=== PATIENT | male | born 1965 | race Caucasian/White ===

== ENCOUNTER 2017-04-01 08:10 | Inpatient (IN) | payer OTHER ==
[~2017-04-01] VITALS: Ht 190.5 cm; Wt 178.8 kg
[~2017-04-01 08:10] MED LIST: PRED20TA PO
[2017-04-01] MEDS ORDERED: [UNRECOGNIZED DRUG - OTHER] PO (08:43)
[2017-04-01 08:45] LABS: BASO % 0.4 %; BASO ABS # 0.04 K/uL (0-0.2); COMPLETE YES; EOS % 1.7 %; HEMATOCRIT 47.9 % (42-52); IG% 0.2 %; LYMPH % 31.7 %; MEAN CELL VOLUME 91.4 fL (80-100); MEAN CORPUSCULAR HEMOGLOBIN 31.7 pg (25-34); MEAN CORPUSCULAR HGB CONC 34.7 g/dl (32-36); MEAN PLATELET VOLUME 10.5 fL (7.4-10.4); MONO % 6.8 %; NEUT % 59.2 %; PLATELET COUNT 184 K/uL (130-400); RED BLOOD COUNT 5.24 M/uL (4.7-6.1); WHITE BLOOD COUNT 9.15 K/uL (4.8-10.8)
[2017-04-01] MEDS ORDERED: ATOR80TA PO (08:45)
--- NOTE | 2017-04-01 08:58 | DIAGNOSTIC IMAGING REPORT ---
CHEST ONE VIEW PORTABLE CLINICAL HISTORY: 52 years-old Male presenting with EVALUATE RESPIRATORY DISTRESS. DYSPNEA. TECHNIQUE: Portable upright AP view of the chest was obtained. COMPARISON: None. FINDINGS: Cardiac silhouette is enlarged. Mildly prominent pulmonary vasculature. Lungs clear. No large effusion or pneumothorax. Osseous structures normal. Upper abdomen normal. IMPRESSION: 1. Cardiomegaly. Pulmonary vascular prominence could suggest volume overload. No madelyn pulmonary edema. Electronically signed by: Kaveh Greco M.D. 04/01/2017 8:57 AM Dictated Date/Time: 04/01/2017 8:56 AM
[2017-04-01 09:02] LABS: CALCIUM 9.2 mg/dl (8.5-10.1); CREATININE 1.3 mg/dl (0.60-1.40); POTASSIUM 3.9 mmol/L (3.5-5.1)
[2017-04-01 09:12] LABS: ALB/GLOB RATIO 1.2 (0.9-2); CKMB/CK RATIO 3.8 (0-3.0); INR 1.1 (0.9-1.1); PROTHROMBIN TIME (PATIENT) 11.4 SECONDS (9.0-12.0); THYROID STIMULATING HORMONE 1.47 uIu/ml (0.300-4.500)
[2017-04-01] MEDS ORDERED: FUROSEMIDE 40 MG/4 ML VIAL IV STA (09:30)
[2017-04-01] MEDS ORDERED: OPTIRAY 320 IV PRN (09:45)
--- NOTE | 2017-04-01 10:12 | DIAGNOSTIC IMAGING REPORT ---
CT ANGIOGRAM OF THE CHEST CLINICAL HISTORY: Shortness of breath. Elevated d-dimer. COMPARISON STUDY: Chest x-ray dated 04/01/2017 TECHNIQUE: Following the IV administration of 108 mL of Optiray-320, CT angiogram of the thorax was performed from the thoracic inlet to the lung bases utilizing the pulmonary embolus protocol. Images are reviewed in the axial, sagittal, and coronal planes. IV contrast was administered without complication. MIP imaging was performed. A dose lowering technique was utilized adhering to the principles of ALARA. CT DOSE: 671.95 mGy.cm FINDINGS: There is a 1 cm lymph node in the region of the azygos esophageal recess. This is at the upper limits of normal in size. There is no pathologic hilar adenopathy. There is a trace pericardial effusion. There was no evidence of thoracic aortic dilatation. There is some optimal lower lobe pulmonary arterial opacification. No pulmonary emboli are visualized. No pleural effusions are visualized. There is no evidence of focal pulmonary consolidation. There is a 2 mm solid right upper lobe pulmonary nodule as visualized in image #[id number]. No further follow-up is indicated unless this patient is at high risk. IMPRESSION: 1. Slightly limited study from a technical standpoint with suboptimal lower lobe pulmonary opacification. No pulmonary emboli identified. 2. No evidence of focal pulmonary consolidation 3. 2 mm right upper lobe pulmonary nodule Electronically signed by: Joe Quiroz M.D. 04/01/2017 10:11 AM Dictated Date/Time: 04/01/2017 10:05 AM
[2017-04-01 10:35] LABS: URINE APPEARANCE CLEAR (CLEAR); URINE BILIRUBIN NEG (NEG); URINE COLOR YELLOW; URINE NITRITE NEG (NEG); URINE SPECIFIC GRAVITY 1.014 (1.000-1.030); UROBILINOGEN NEG (NEG)
[2017-04-01 10:37] LABS: MANUAL MICROSCOPIC REQUIRED? NO; REVIEW REQ? NO
[2017-04-01 11:00] VITALS: O2SAT 94; Ht 190.5 cm; Wt 178.8 kg
[2017-04-01] MEDS ORDERED: ATOR-22 PO (11:06)
[2017-04-01] MEDS ORDERED: ALBUTEROL HFA 8 GM INHALER INH PRN (11:15)
[2017-04-01] MEDS ORDERED: LEVALBUTEROL 1.25MG/0.5ML NEB INH PRN (11:15)
[2017-04-01] MEDS ORDERED: ONDANSETRON INJ 2 MG/ML 2 ML VIAL IV PRN (11:15)
[2017-04-01] MEDS ORDERED: ACETAMINOPHEN 325 MG TAB PO PRN (11:15)
[2017-04-01] MEDS ORDERED: ALUMINUM/MAGNESIUM/SIMETH (MAALOX MAX) 30 ML UDC PO PRN (11:15)
[2017-04-01] MEDS ORDERED: NITROGLYCERIN 0.4 MG SL PER TAB CHARGE SL PRN (11:15)
[2017-04-01] MEDS ORDERED: MAGNESIUM HYDROXIDE SUSP 30 ML UDC PO PRN (11:15)
--- NOTE | 2017-04-01 11:36 | HISTORY & PHYSICAL EXAMINATION ---
DATE OF ADMISSION: 04/01/2017 CHIEF COMPLAINT: Shortness of breath. HISTORY OF PRESENT ILLNESS: This is a 52-year-old male with past medical history significant for asthma, psoriasis, hyperlipidemia, hypertension and morbid obesity, presents with progressive shortness of breath. The patient says since last 4-5 months he is getting progressively short of breath which is getting worse. He lately is getting short of breath on walking 10 steps and that is why he came to the ER.Currently resting comfortably and hemodynamically stable. Denies any orthopnea and no chest pain, no cough, no fever, no chills, no headaches, no blurred vision, no dizziness, no sore throat. No nausea, no vomiting, no abdominal pain. Normal bowel and bladder movements. No blood in the stool, no blood in the urine. He has some skin rash from psoriasis but nothing unusual. Denies any swelling in the legs. Appetite is okay. ALLERGIES: No known drug allergies. PAST MEDICAL HISTORY: As mentioned above. PAST SURGICAL HISTORY: None. MEDICATIONS: The patient is on aspirin 81 mg p.o. daily, Lipitor 20 mg p.o. daily, lisinopril 20 mg p.o. daily, albuterol 2 puffs inhalation q. 4 hours p.r.n., Advair Diskus 500/50 one inhalation b.i.d. FAMILY HISTORY: Significant for mother has diabetes, retinopathy, and dementia. Father has lung cancer. Brother has lymphedema infectious complication. SOCIAL HISTORY: Single, has passive smoking exposure. No drug abuse. REVIEW OF SYMPTOMS: As per HPI. Rest of review of systems negative. PHYSICAL EXAMINATION: GENERAL: The patient is morbidly obese, not in distress. VITAL SIGNS: Temperature 36.8, pulse 103, respiratory rate 22, blood pressure 142/97, and oxygen 94% room air. HEENT: No pallor, no icterus. Pupils equal, round, and reactive to light. NECK: No JVD, no neck masses, no carotid bruits. CARDIOVASCULAR: S1, S2 heard, regular rate and rhythm, no murmur, no gallop. RESPIRATORY SYSTEM: No accessory muscle use. No wheezing. No crackles. Clear to auscultation bilaterally. ABDOMEN: Soft, bowel sounds present, nontender. No distention. Obese. CENTRAL NERVOUS SYSTEM: Cranial nerves II-XII grossly intact and nonfocal. EXTREMITIES: Chronic lower extremity edema present. SKIN: Psoriatic rash seen on the lower extremities. LABORATORY DATA: Urinalysis unremarkable. Sodium 140, potassium 3.9, chloride 107, bicarbonate 25, BUN 18, creatinine 1.3, serum glucose 101. Calcium 9.2, total bilirubin 1.3, AST 19, ALT 26, alkaline phosphatase 65, total creatine kinase 77, troponin I 0.018, BNP 1971. TSH 1.4. WBC 9.15. Hemoglobin 16.6, hematocrit 47.9, platelets 184. PT 11.4, INR 1.1. D-dimer 780. IMAGING DATA: Chest x-ray cardiomegaly, mild pulmonary vascular congestion, no madelyn pulmonary edema. CTA of the chest, no PE, trace pericardial effusion, 2 mm right upper lobe pulmonary nodule. EKG: Normal sinus rhythm with rate of 82, incomplete right bundle branch block, no acute ST changes seen. ASSESSMENT AND PLAN: This is a 52-year-old male who presents with progressive worsening shortness of breath. 1. Shortness of breath, progressively worsening, possible congestive heart failure diastolic. We will admit to tele floor, the patient got a dose of Lasix in the ER. We will also get an echocardiogram, serial cardiac enzymes and observe on tele floor. Patient may be having underlying obstructive sleep apnea we will get a nocturnal pulse ox study while in the hospital and also get an ABG. 2. History of hypertension. Continue his home medication of lisinopril. Monitor the blood pressure. 3. Trace pericardial effusion on the CAT scan. We will follow the echocardiogram. 4. Hyperlipidemia. We will continue statin, follow lipid profile, 5 asthma, moderate persistent but seems to be stable. Continue his home inhalers. 6. Deep venous thrombosis prophylaxis. Heparin subQ. DISPOSITION: 1. Admit to tele floor. 2. Expect to Discharge home and follow with his family doctor. Level 1 full code. MTDD
--- NOTE | 2017-04-01 13:59 | EMERGENCY ROOM VISIT NOTE ---
History First contact with patient: 08:16 Chief Complaint: RESPIRATORY PROBLEMS Stated Complaint: BREATHING DIFFICULTY Nursing Triage Summary: triage note; pt reports "for the past three or four months i can't walk more than ten steps without getting out of breath and it is gettinger worse, i do have a hx of asthma." History of Present Illness The patient is a 52 year old male who presents to the Emergency Room with complaints of increasing shortness of breath for the past 3-4 months. The patient reports that now he can only walk about 5 steps before getting shortness of breath. The patient denies any prior history of these symptoms. He does have a history of asthma, but reports that his shortness of breath feels different. He has not noticed any lower extremity edema. He has had no chest pain, pressure, nausea or diaphoresis. The patient has not seen his family doctor for the symptoms. Review of Systems HEENT: Denies dizziness, visual problems, hearing loss, tinnitus. Denies difficulty swallowing or oral lesions. PULMONARY: Denies cough, sputum production or hemoptysis. CARDIOVASCULAR: Denies chest pain, palpitations, orthopnea or peripheral edema. He does report dyspnea on exertion. GASTROINTESTINAL: Denies diarrhea, constipation, nausea, vomiting, or abdominal pain. GENITOURINARY: Denies dysuria, frequency, urgency or nocturia. NEUROLOGIC: Denies history of epilepsy, CVA, TIA or chronic headaches. MUSCULOSKELETAL: Denies history of joint tenderness/swelling. SKIN: Denies rashes or lesions. PSYCHIATRIC: Denies history of depression or mental illness. ENDOCRINE: Denies history of diabetes or thyroid disorders. Past Medical/Surgical History Medical Problems: (1) CHF (congestive heart failure) Family History FH: cancer FH: diabetes mellitus FH: hypertension FH: lung disease Social History Smoking Status: Never Smoker Alcohol Use: occasionally Marital Status: single Housing Status: lives with friends Occupation Status: employed Current/Historical Medications Scheduled Aspirin (Aspirin Ec), 81 MG PO QAM Atorvastatin (Lipitor), 20 MG PO DAILY Fluticasone Prop/Salmeterol (Advair Diskus 500-50 Mcg/Dose), 1 INHA INH BID Lisinopril (Prinivil), 20 MG PO QAM [Acetaminophen Cold], 4 TABS PO Q6H Scheduled PRN Albuterol Hfa (Ventolin Hfa), 1-2 PUFFS INH Q6H PRN for Shortness of Breath Physical Exam Vital Signs Date Time Temp Pulse Resp B/P (MAP) Pulse Ox O2 Delivery O2 Flow Rate FiO2 04/01/17 12:19 81 20 154/99 96 Room Air 04/01/17 11:27 77 04/01/17 11:17 75 20 134/86 97 Room Air 04/01/17 11:00 94 Room Air 04/01/17 09:30 103 22 142/97 94 Room Air 04/01/17 08:46 95 Room Air 04/01/17 08:32 78 04/01/17 08:13 36.8 84 20 143/99 94 Room Air 04/01/17 08:13 Room Air Physical Exam CONSTITUTIONAL: Morbidly obese male, alert and oriented X 3 with positive affect. Patient does not appear in any acute distress. HEENT: Normocephalic, atraumatic. Pupils equal, round and reactive. NECK: Full active range of motion without discomfort. No obvious JVD or carotid bruits. RESPIRATORY: Clear to auscultation bilaterally with no wheezing, crackles, rhonchi or stridor. CARDIOVASCULAR: Regular rate and rhythm with no murmurs, rubs or gallops. GASTROINTESTINAL: Bowel sounds present in all quadrants. Abdomen is protuberant but soft and nontender to palpation. Negative CVA tenderness. MUSCULOSKELETAL: Full range of motion of all joints without discomfort. No peripheral edema noted. INTEGUMENTARY: No rash or other significant dermatologic conditions noted. HEMATOLOGIC: No obvious ecchymosis or petechiae. NEUROLOGIC: No focal neurologic deficits noted. Medical Decision & Procedures ER Provider Diagnostic Interpretation: My interpretation of an ECG shows a normal sinus rhythm of 82 bpm with an incomplete right bundle branch block and left anterior fascicular block. No ST elevations noted. There are no prior ECGs for comparison. My interpretation of a portable chest x-ray shows cardiomegaly with prominent pulmonary vasculature, suggesting volume overload. Radiologist report is as follows: CHEST ONE VIEW PORTABLE CLINICAL HISTORY: 52 years-old Male presenting with EVALUATE RESPIRATORY DISTRESS. DYSPNEA. TECHNIQUE: Portable upright AP view of the chest was obtained. COMPARISON: None. FINDINGS: Cardiac silhouette is enlarged. Mildly prominent pulmonary vasculature. Lungs clear. No large effusion or pneumothorax. Osseous structures normal. Upper abdomen normal. IMPRESSION: 1. Cardiomegaly. Pulmonary vascular prominence could suggest volume overload. No madelyn pulmonary edema. Chest CT angiography does not show any his pulmonary emboli. Trace pericardial effusion is noted. Radiologist report is as follows: CT ANGIOGRAM OF THE CHEST CLINICAL HISTORY: Shortness of breath. Elevated d-dimer. COMPARISON STUDY: Chest x-ray dated 04/01/2017 TECHNIQUE: Following the IV administration of 108 mL of Optiray-320, CT angiogram of the thorax was performed from the thoracic inlet to the lung bases utilizing the pulmonary embolus protocol. Images are reviewed in the axial, sagittal, and coronal planes. IV contrast was administered without complication. MIP imaging was performed. A dose lowering technique was utilized adhering to the principles of ALARA. CT DOSE: 671.95 mGy.cm FINDINGS: There is a 1 cm lymph node in the region of the azygos esophageal recess. This is at the upper limits of normal in size. There is no pathologic hilar adenopathy. There is a trace pericardial effusion. There was no evidence of thoracic aortic dilatation. There is some optimal lower lobe pulmonary arterial opacification. No pulmonary emboli are visualized. No pleural effusions are visualized. There is no evidence of focal pulmonary consolidation. There is a 2 mm solid right upper lobe pulmonary nodule as visualized in image #[id number]. No further follow-up is indicated unless this patient is at high risk. IMPRESSION: 1. Slightly limited study from a technical standpoint with suboptimal lower lobe pulmonary opacification. No pulmonary emboli identified. 2. No evidence of focal pulmonary consolidation 3. 2 mm right upper lobe pulmonary nodule Laboratory Results 04/01/17 08:30 Red Blood Count 5.24, Mean Corpuscular Volume 91.4, Mean Corpuscular Hemoglobin 31.7, Mean Corpuscular Hemoglobin Concent 34.7, Mean Platelet Volume 10.5, Neutrophils (%) (Auto) 59.2, Lymphocytes (%) (Auto) 31.7, Monocytes (%) (Auto) 6.8, Eosinophils (%) (Auto) 1.7, Basophils (%) (Auto) 0.4, Neutrophils # (Auto) 5.41, Lymphocytes # (Auto) 2.90, Monocytes # (Auto) 0.62, Eosinophils # (Auto) 0.16, Basophils # (Auto) 0.04 04/01/17 08:30 Test 04/01/17 08:30 04/01/17 10:15 White Blood Count 9.15 K/uL (4.8-10.8) Red Blood Count 5.24 M/uL (4.7-6.1) Hemoglobin 16.6 g/dL (14.0-18.0) Hematocrit 47.9 % (42-52) Mean Corpuscular Volume 91.4 fL (80-100) Mean Corpuscular Hemoglobin 31.7 pg (25-34) Mean Corpuscular Hemoglobin Concent 34.7 g/dl (32-36) Platelet Count 184 K/uL (130-400) Mean Platelet Volume 10.5 fL (7.4-10.4) Neutrophils (%) (Auto) 59.2 % Lymphocytes (%) (Auto) 31.7 % Monocytes (%) (Auto) 6.8 % Eosinophils (%) (Auto) 1.7 % Basophils (%) (Auto) 0.4 % Neutrophils # (Auto) 5.41 K/uL (1.4-6.5) Lymphocytes # (Auto) 2.90 K/uL (1.2-3.4) Monocytes # (Auto) 0.62 K/uL (0.11-0.59) Eosinophils # (Auto) 0.16 K/uL (0-0.5) Basophils # (Auto) 0.04 K/uL (0-0.2) RDW Standard Deviation 48.1 fL (36.4-46.3) RDW Coefficient of Variation 14.2 % (11.5-14.5) Immature Granulocyte % (Auto) 0.2 % Immature Granulocyte # (Auto) 0.02 K/uL (0.00-0.02) Prothrombin Time 11.4 SECONDS (9.0-12.0) Prothromb Time International Ratio 1.1 (0.9-1.1) Activated Partial Thromboplast Time 26.8 SECONDS (21.0-31.0) Partial Thromboplastin Ratio 1.0 D-Dimer 780 ug/L FEU (0-500) Anion Gap 8.0 mmol/L (3-11) Est Creatinine Clear Calc Drug Dose 115.0 ml/min Estimated GFR () 72.7 Estimated GFR (Non- 62.7 BUN/Creatinine Ratio 8.0 (10-20) Calcium Level 9.2 mg/dl (8.5-10.1) Total Bilirubin 1.3 mg/dl (0.2-1) Aspartate Amino Transf (AST/SGOT) 19 U/L (15-37) Alanine Aminotransferase (ALT/SGPT) 26 U/L (12-78) Alkaline Phosphatase 65 U/L (45-117) Total Creatine Kinase 77 U/L (39-308) Creatine Kinase MB 2.9 ng/ml (0.5-3.6) Creatine Kinase MB Ratio 3.8 (0-3.0) Troponin I 0.018 ng/ml (0-0.045) Pro-B-Type Natriuretic Peptide 1971 pg/ml (0-900) Total Protein 7.0 gm/dl (6.4-8.2) Albumin 3.8 gm/dl (3.4-5.0) Globulin 3.2 gm/dl (2.5-4.0) Albumin/Globulin Ratio 1.2 (0.9-2) Thyroid Stimulating Hormone (TSH) 1.470 uIu/ml (0.300-4.500) Hepatitis C Antibody Screen NEG (NEG) Urine Color YELLOW Urine Appearance CLEAR (CLEAR) Urine pH 7.0 (4.5-7.5) Urine Specific [place] 1.014 (1.000-1.030) Urine Protein 1+ (NEG) Urine Glucose (UA) NEG (NEG) Urine Ketones NEG (NEG) Urine Occult Blood NEG (NEG) Urine Nitrite NEG (NEG) Urine Bilirubin NEG (NEG) Urine Urobilinogen NEG (NEG) Urine Leukocyte Esterase NEG (NEG) Urine WBC (Auto) 0 /hpf (0-5) Urine RBC (Auto) 0-4 /hpf (0-4) Urine Hyaline Casts (Auto) 1-5 /lpf (0-5) Urine Epithelial Cells (Auto) 5-10 /lpf (0-5) Urine Bacteria (Auto) NEG (NEG) The above labs were reviewed. D-dimer is mildly elevated at 780. BNP is elevated at 1971. Troponin is normal. CBC, LFTs, partial renal profile and urinalysis are otherwise normal Medications Administered Medications (Trade) Dose Ordered Sig/Joon Route Start Time Stop Time Status Last Admin Dose Admin Furosemide (Lasix Inj) 40 mg NOW STAT IV 04/01/17 09:30 04/01/17 09:31 DC 04/01/17 09:44 40 MG ED Course Patient history and physical exam were performed. Nurse's notes were reviewed. Vital signs were reviewed, showing a blood pressure 143/99. O2 saturation is 94% on room air. The patient is afebrile and not tachycardic. He is not tachypneic or symptomatic on exam. IV access was established, and labs were drawn. An ECG was performed, showing low voltage QRS, incomplete right bundle branch block and left anterior fascicular block. No ST segment elevation is noted. There were no prior ECGs for comparison. A portable chest x-ray shows possible fluid overload without any consolidations. Cardiomegaly is noted. Review of labs showed a normal troponin. His d-dimer and BNP were elevated. Chest CT angiography did not show any obvious evidence for pulmonary emboli. Trace pericardial effusion is noted, without any obvious consolidations. The patient was administered Lasix 40 mg IVP. The case was discussed with Dr. Burris, ED at a physician, who agreed with hospitalist consultation. With new onset CHF, consultation was placed with the [facility] hospitalist service. Please see their dictation for further treatment and final disposition. Medical Decision Patient presents to the emergency department with complaint of progressively worsening dyspnea and shortness of breath over the past several months. His workup today is consistent with CHF. ECG and laboratory studies are not suggestive of myocardial infarction. D-dimer was elevated, but CT does not show any obvious pulmonary emboli. The patient is afebrile and has no leukocytosis, therefore I do not suspect infectious etiology. Medication Reconcilliation Current Medication List: was personally reviewed by me Blood Pressure Screening Patient's blood pressure: Elevated blood pressure Impression Primary Impression: CHF (congestive heart failure) Departure Information Prescriptions Atorvastatin (Lipitor) 20 Mg Tab 20 MG PO DAILY for 30 Days, #30 TAB Prov: Jonel Espinoza MD 04/01/17 Referrals Aashish, Bill V.,D.O. (PCP) Patient Instructions [facility] Problem Qualifiers Primary Impression: CHF (congestive heart failure) Congestive heart failure type: unspecified congestive heart failure type Congestive heart failure chronicity: acute Qualified Codes: I50.9 - Heart failure, unspecified
[2017-04-01] MEDS ORDERED: PERFLUTREN LIPID MICROSPHERE (DEFINITY) IV ONE (15:05)
[2017-04-01 15:15] VITALS: BP 178/82; PULSE 73; TEMP 36.9; O2SAT 98
[2017-04-01] MEDS: FLUTICASONE/SALMETEROL (ADVAIR) 500/50 INH 14 PUFF INH SCH (19:18)
[2017-04-01] MEDS: HEPARIN SOD 5000 UNIT/0.5 ML CARP SQ SCH (19:20)
[2017-04-01 20:04] VITALS: BP 128/81; PULSE 83; TEMP 36.7; O2SAT 91
[2017-04-01 20:10] LABS: CKMB/CK RATIO 3.1 (0-3.0)
[2017-04-01 22:09] VITALS: PULSE 76; O2SAT 96
[2017-04-02] VITALS (8 sets, daily range): BP systolic 134–148; BP diastolic 93–97; PULSE 62–90; TEMP 36.6–36.9; O2SAT 90–96
[2017-04-02 03:52] LABS: BASO % 0.6 %; BASO ABS # 0.06 K/uL (0-0.2); COMPLETE YES; EOS % 2.3 %; HEMATOCRIT 48.7 % (42-52); IG% 0.2 %; LYMPH % 31.5 %; LYMPH ABS # 2.98 K/uL (1.2-3.4); MEAN CELL VOLUME 92.8 fL (80-100); MEAN CORPUSCULAR HEMOGLOBIN 30.3 pg (25-34); MEAN CORPUSCULAR HGB CONC 32.6 g/dl (32-36); MEAN PLATELET VOLUME 10.2 fL (7.4-10.4); MONO % 7.3 %; NEUT % 58.1 %; PLATELET COUNT 177 K/uL (130-400); RED BLOOD COUNT 5.25 M/uL (4.7-6.1); WHITE BLOOD COUNT 9.46 K/uL (4.8-10.8)
[2017-04-02 04:20] LABS: BLOOD UREA NITROGEN 12 mg/dl (7-18); BUN/CREATININE RATIO 8.5 (10-20); CARBON DIOXIDE 31 mmol/L (21-32); CHLORIDE 105 mmol/L (98-107); GLUCOSE 88 mg/dl (70-99); MAGNESIUM 2.3 mg/dl (1.8-2.4); POTASSIUM 3.8 mmol/L (3.5-5.1); SODIUM 141 mmol/L (136-145)
[2017-04-02 04:25] LABS: CHOLESTEROL 97 mg/dl (0-200); CHOLESTEROL/HDL RATIO 2.7; CKMB/CK RATIO 4.1 (0-3.0); HDL CHOLESTEROL 36 mg/dl; LDL CHOLESTEROL CALCULATED 44 mg/dl; TRIGLYCERIDES 87 mg/dl (0-150); VERY LOW DENSITY LIPOPROT CALC 17 mg/dl
[2017-04-02] MEDS ORDERED: LISINOPRIL 20 MG TAB PO ONE (05:22)
[2017-04-02] MEDS: HEPARIN SOD 5000 UNIT/0.5 ML CARP SQ SCH ×2 (05:48→13:59)
[2017-04-02 06:34] LABS: ESTIMATED AVERAGE GLUCOSE 114 mg/dl; HA1C FLAG Normal (Normal)
[2017-04-02] MEDS: FLUTICASONE/SALMETEROL (ADVAIR) 500/50 INH 14 PUFF INH SCH (08:49)
[2017-04-02] MEDS ORDERED: LISINOPRIL 20 MG TAB PO SCH (09:00)
[2017-04-02] MEDS ORDERED: ASPIRIN 81 MG ECTAB PO SCH (09:00)
[2017-04-02] MEDS ORDERED: ATORVASTATIN 20 MG TAB PO SCH (09:00)
--- NOTE | 2017-04-02 13:12 | ECHOCARDIOGRAM REPORT ---
*NOTICE TO RECEIVING CONSTITUTION PARTY AGENCY This information is strictly Confidential and protected under [place] law. [place] law prohibits you from making any further disclosure of this information unless further disclosure is expressly permitted by the written consent of the person to whom it pertains or is authorized by law. A general authorization for the release of medical or other information is not sufficient for this purpose. Hospital accepts no responsibility if the information is made available to any other person, INCLUDING THE PATIENT. Interpretation Summary * Name: MATY NEFF Study Date: 04/01/2017 02:06 PM BP: 142/97 mmHg * Patient Location: .ED HR: 103 * : 1965 (M/d/yyyy) Gender: Male Height: 75 in * Age: 52 yrs Ethnicity: CA Weight: 394 lb * Ordering Physician: Jonel Espinoza * Performed By: Noa Tamayo * * Reason For Study: CHF * BSA: 2.9 m2 * Grossly normal valvular structure and function. * -- Conclusions -- * Very poor acoustic windows. * Grossly normal cardiac chamber sizes. * Grossly normal LVEF * Grossly normal valvular structure and function. Procedure Details * A complete two-dimensional transthoracic echocardiogram was performed (2D, M-mode, Doppler and color flow Doppler). * The study was technically limited. * The study was technically difficult. * Limited views were obtained. * There were technical limitations due to patient'sbody habitus * A contrast injection of Definity was performed to improve assessment of LV function. * Contrast was injected into an intravenous site in the left arm. * One vial of Definity ultrasound contrast was diluted in normal saline to a total volume of 10 ml. A total of '5' ml of solution was administered during imaging. * Lot # [id number] of Definity utilized for procedure. * Expiration date 05/06. * The attending nurse who injected the contrast agent was ZAFAR NEWBY RN. Left Ventricle * Ejection Fraction = 60-65%. MMode 2D Measurements and Calculations IVSd 1.4 cm IVSs 1.8 cm LVIDd 5.3 cm LVIDs 3.4 cm LVPWd 0.94 cm LVPWs 2.0 cm IVS/LVPW 1.5 FS 35.2 % EDV(Teich) 134.3 ml ESV(Teich) 48.1 ml EF(Teich) 64.2 % EDV(cubed) 147.3 ml ESV(cubed) 40.0 ml EF(cubed) 72.8 % % IVS thick 28.3 % % LVPW thick 114.8 % LV mass(C)d 242.9 grams LV mass(C)dI 83.0 grams/m\S\2 LV mass(C)s 278.7 grams LV mass(C)sI 95.2 grams/m\S\2 SV(Teich) 86.1 ml SI(Teich) 29.4 ml/m\S\2 SV(cubed) 107.3 ml SI(cubed) 36.7 ml/m\S\2 ACS 1.9 cm asc Aorta Diam 3.2 cm LVOT diam 2.3 cm LVOT area 4.2 cm\S\2 LVAd ap4 23.2 cm\S\2 LVLd ap4 6.8 cm EDV(MOD-sp4) 67.9 ml EDV(sp4-el) 66.9 ml LVAs ap4 14.3 cm\S\2 LVLs ap4 6.3 cm ESV(MOD-sp4) 26.4 ml ESV(sp4-el) 27.3 ml EF(MOD-sp4) 61.0 % EF(sp4-el) 59.2 % LVAd ap2 25.3 cm\S\2 LVLd ap2 6.4 cm EDV(MOD-sp2) 83.5 ml EDV(sp2-el) 85.0 ml LVAs ap2 14.1 cm\S\2 LVLs ap2 5.4 cm ESV(MOD-sp2) 32.1 ml ESV(sp2-el) 30.9 ml EF(MOD-sp2) 61.5 % EF(sp2-el) 63.6 % LVLd %diff -6.34 % EDV(MOD-bp) 75.7 ml LVLs %diff -16.92 % ESV(MOD-bp) 30.6 ml EF(MOD-bp) 59.6 % SV(MOD-sp4) 41.4 ml SI(MOD-sp4) 14.2 ml/m\S\2 SV(MOD-sp2) 51.4 ml SI(MOD-sp2) 17.5 ml/m\S\2 SV(MOD-bp) 45.1 ml SI(MOD-bp) 15.4 ml/m\S\2 SV(sp4-el) 39.6 ml SI(sp4-el) 13.5 ml/m\S\2 SV(sp2-el) 54.1 ml SI(sp2-el) 18.5 ml/m\S\2 Doppler Measurements and Calculations MV E max jamee 95.8 cm/sec MV dec time 0.12 sec Ao V2 max 98.4 cm/sec Ao max PG 3.9 mmHg Ao max PG (full) 2.1 mmHg LENNY(V,A) 2.8 cm\S\2 LENNY(V,D) 2.8 cm\S\2 LV V1 max PG 1.8 mmHg LV V1 max 67.3 cm/sec TR max jamee 383.9 cm/sec
[2017-04-02] MEDS ORDERED: HYDR25TA4 PO (14:10)
--- NOTE | 2017-04-02 14:17 | Discharge Instructions ---
Discharge Instructions Date of Service Apr 02, 2017. Admission Reason for Admission: CHF Discharge Discharge Diagnosis / Problem: sob. Discharge Goals Goal(s): Decrease discomfort, Improve function Activity Recommendations Activity Limitations: resume your previous activity . Instructions / Follow-Up Instructions / Follow-Up FOLLOWUP WITH FAMILY DOCTOR : Bill Zendejas ON Mar AT 2:05PM CARDIAC STRESS TEST AND PULMONARY FUNCTION TEST PER FAMILY DOCTOR. BLOOD PRESSURE FOLLOWUP WITH FAMILY DOCTOR. LAB: BMP IN ONE WEEK AND FOLLOW RESULTS WITH FAMILY STARTING ON DIURETIC. Current Hospital Diet Patient's current hospital diet: AHA Diet (Heart Healthy) Discharge Diet Recommended Diet: AHA Diet (Heart Healthy) Pending Studies Studies pending at discharge: no Laboratory Results Hemoglobin A1c Test 04/02/17 03:05 Range/Units Estimated Average Glucose 114 mg/dl Hemoglobin A1c 5.6 4.5-5.6 % Lipid Panel Test 04/02/17 03:05 Range/Units Triglycerides Level 87 0-150 mg/dl Cholesterol Level 97 0-200 mg/dl HDL Cholesterol 36 mg/dl Cholesterol/HDL Ratio 2.7 LDL Cholesterol, Calculated 44 mg/dl Medical Emergencies . Who to Call and When: Medical Emergencies: If at any time you feel your situation is an emergency, please call 911 immediately. . Non-Emergent Contact Non-Emergency issues call your: Primary Care Provider . . "Provider Documentation" section prepared by Jonel Espinoza. . VTE Core Measure Inpt VTE Proph given/why not?: SCD's
--- NOTE | 2017-04-02 17:49 | Progress Note ---
Internal Med Progress Note Date of Service: Apr 02, 2017. Provider Documentation: SUBJECTIVE: resting comfortably no sob today no chest [pain hemodynamically stable ambulating fine ok to go home OBJECTIVE: Vital Signs-as noted below Exam: General-alert and oriented. Not in distress ENT-normal hearing Neck-no neck masses Lungs-cta b/l no wheezing no crackles present Heart-s1 and s2 heard regular rhythm, no murmurs Abdomen-soft bowel sounds present non tender no distension Extremities mild edema present Neuro-alert and oriented moves extremities Lab data as noted below. ASSESSMENT & PLAN: : This is a 52-year-old male who presents with progressive worsening shortness of breath. 1. Shortness of breath, progressively worsening, possible acute congestive heart failure diastolic?. received iv Lasix in er echo poor study but grossly unremarkable nocturnal pulse ox study ok. Doing fine today ambulated fine added hctz f/u with pcp cardiac stress test and PFT's as per PCP. 2. History of hypertension. Continue his home medication of lisinopril. Monitor the blood pressure.Added hctz. f/u with pcp. 3. Trace pericardial effusion on the CAT scan. Echo grossly normal. f/u with pcp. 4. Hyperlipidemia. We will continue statin,. LDL 44. HDL 36. 5 asthma, moderate persistent but seems to be stable. Continue his home inhalers. Discharged home Vital Signs: Date Time Temp Pulse Resp B/P (MAP) Pulse Ox O2 Delivery O2 Flow Rate FiO2 04/02/17 14:29 36.9 62 16 95 Room Air 04/02/17 13:00 Room Air 04/02/17 13:00 90 18 137/93 (108) 95 Room Air 04/02/17 12:00 95 Room Air 04/02/17 11:28 36.9 62 16 134/94 (107) 96 Room Air 04/02/17 08:00 95 Room Air 04/02/17 07:37 36.7 72 16 136/95 (109) 95 Room Air 04/02/17 05:05 36.6 80 20 144/96 (112) 90 Room Air 04/02/17 04:00 Room Air 04/02/17 00:03 36.9 82 20 148/97 (114) 93 Room Air 04/02/17 00:00 Room Air 04/01/17 22:09 76 18 96 Room Air 04/01/17 20:04 36.7 83 20 128/81 (97) 91 Room Air 04/01/17 19:22 Room Air Lab Results: Results Past 24 Hours Test 04/01/17 19:09 04/02/17 02:10 04/02/17 03:05 Range/Units Total Creatine Kinase 68 64 39-308 U/L Creatine Kinase MB 2.1 2.6 0.5-3.6 ng/ml Creatine Kinase MB Ratio 3.1 4.1 0-3.0 Troponin I < 0.015 < 0.015 0-0.045 ng/ml Bedside Glucose 138 70-99 mg/dl White Blood Count 9.46 4.8-10.8 K/uL Red Blood Count 5.25 4.7-6.1 M/uL Hemoglobin 15.9 14.0-18.0 g/dL Hematocrit 48.7 42-52 % Mean Corpuscular Volume 92.8 80-100 fL Mean Corpuscular Hemoglobin 30.3 25-34 pg Mean Corpuscular Hemoglobin Concent 32.6 32-36 g/dl Platelet Count 177 130-400 K/uL Mean Platelet Volume 10.2 7.4-10.4 fL Neutrophils (%) (Auto) 58.1 % Lymphocytes (%) (Auto) 31.5 % Monocytes (%) (Auto) 7.3 % Eosinophils (%) (Auto) 2.3 % Basophils (%) (Auto) 0.6 % Neutrophils # (Auto) 5.49 1.4-6.5 K/uL Lymphocytes # (Auto) 2.98 1.2-3.4 K/uL Monocytes # (Auto) 0.69 0.11-0.59 K/uL Eosinophils # (Auto) 0.22 0-0.5 K/uL Basophils # (Auto) 0.06 0-0.2 K/uL RDW Standard Deviation 47.8 36.4-46.3 fL RDW Coefficient of Variation 14.2 11.5-14.5 % Immature Granulocyte % (Auto) 0.2 % Immature Granulocyte # (Auto) 0.02 0.00-0.02 K/uL Sodium Level 141 136-145 mmol/L Potassium Level 3.8 3.5-5.1 mmol/L Chloride Level 105 98-107 mmol/L Carbon Dioxide Level 31 21-32 mmol/L Anion Gap 5.0 3-11 mmol/L Blood Urea Nitrogen 12 7-18 mg/dl Creatinine 1.40 0.60-1.40 mg/dl Est Creatinine Clear Calc Drug Dose 106.8 ml/min Estimated GFR () 66.5 Estimated GFR (Non- 57.4 BUN/Creatinine Ratio 8.5 10-20 Random Glucose 88 70-99 mg/dl Estimated Average Glucose 114 mg/dl Hemoglobin A1c 5.6 4.5-5.6 % Calcium Level 9.0 8.5-10.1 mg/dl Magnesium Level 2.3 1.8-2.4 mg/dl Triglycerides Level 87 0-150 mg/dl Cholesterol Level 97 0-200 mg/dl HDL Cholesterol 36 mg/dl LDL Cholesterol, Calculated 44 mg/dl VLDL Cholesterol, Calculated 17 mg/dl Cholesterol/HDL Ratio 2.7
--- NOTE | 2017-04-02 17:52 | Discharge Summary ---
Discharge Summary Date of Service Apr 02, 2017. Discharge Summary Admission Date: Apr 01, 2017 at 11:06 Discharge Date: Apr 02, 2017 Discharge Disposition: Home Principal Diagnosis: sob diastolic chf? Secondary Diagnoses/Problems: asthma, psoriasis, hyperlipidemia, hypertension and morbid obesity, Procedures: CTA CHEST: 1. Slightly limited study from a technical standpoint with suboptimal lower lobe pulmonary opacification. No pulmonary emboli identified. 2. No evidence of focal pulmonary consolidation 3. 2 mm right upper lobe pulmonary nodule ECHO: * Very poor acoustic windows. * Grossly normal cardiac chamber sizes. * Grossly normal LVEF Grossly normal valvular structure and function Medication Reconciliation New Medications: Hydrochlorothiazide (Hctz) 25 Mg Tab 1 TAB PO DAILY for 30 Days, #30 TAB 1 Refill Continued Medications: Albuterol Hfa (Ventolin Hfa) 200 Puffs/08540 Mcg Aers 1-2 PUFFS INH Q6H PRN for Shortness of Breath Aspirin (Aspirin Ec) 81 Mg Tab 81 MG PO QAM Atorvastatin (Lipitor) 20 Mg Tab 20 MG PO DAILY for 30 Days, #30 TAB Fluticasone Prop/Salmeterol (Advair Diskus 500-50 Mcg/Dose) 14 Puff/1 Inhaler Aerp 1 INHA INH BID Lisinopril (Prinivil) 20 Mg Tab 20 MG PO QAM Discontinued Medications: [Acetaminophen Cold] () 325MG TAB 4 TABS PO Q6H Admission Information HPI (per Admitting provider): : This is a 52-year-old male with past medical history significant for asthma, psoriasis, hyperlipidemia, hypertension and morbid obesity, presents with progressive shortness of breath. The patient says since last 4-5 months he is getting progressively short of breath which is getting worse. He lately is getting short of breath on walking 10 steps and that is why he came to the ER.Currently resting comfortably and hemodynamically stable. Denies any orthopnea and no chest pain, no cough, no fever, no chills, no headaches, no blurred vision, no dizziness, no sore throat. No nausea, no vomiting, no abdominal pain. Normal bowel and bladder movements. No blood in the stool, no blood in the urine. He has some skin rash from psoriasis but nothing unusual. Denies any swelling in the legs. Appetite is okay. Physical Exam (per Admitting): GENERAL: The patient is morbidly obese, not in distress. VITAL SIGNS: Temperature 36.8, pulse 103, respiratory rate 22, blood pressure 142/97, and oxygen 94% room air. HEENT: No pallor, no icterus. Pupils equal, round, and reactive to light. NECK: No JVD, no neck masses, no carotid bruits. CARDIOVASCULAR: S1, S2 heard, regular rate and rhythm, no murmur, no gallop. RESPIRATORY SYSTEM: No accessory muscle use. No wheezing. No crackles. Clear to auscultation bilaterally. ABDOMEN: Soft, bowel sounds present, nontender. No distention. Obese. CENTRAL NERVOUS SYSTEM: Cranial nerves II-XII grossly intact and nonfocal. EXTREMITIES: Chronic lower extremity edema present. SKIN: Psoriatic rash seen on the lower extremities Hospital Course : This is a 52-year-old male who presents with progressive worsening shortness of breath. 1. Shortness of breath, progressively worsening, possible acute congestive heart failure diastolic?. received iv Lasix in er echo poor study but grossly unremarkable nocturnal pulse ox study ok. Doing fine today ambulated fine added hctz f/u with pcp cardiac stress test and PFT's as per PCP. 2. History of hypertension. Continue his home medication of lisinopril. Monitor the blood pressure.Added hctz. f/u with pcp. 3. Trace pericardial effusion on the CAT scan. Echo grossly normal. f/u with pcp. 4. Hyperlipidemia. We will continue statin,. LDL 44. HDL 36. 5 asthma, moderate persistent but seems to be stable. Continue his home inhalers. Discharged home Total time spent on discharge = 35MINUTES This includes examination of the patient, discharge planning, medication reconciliation, and communication with other providers. Discharge Instructions Discharge Instructions Date of Service Apr 02, 2017. Admission Reason for Admission: CHF Discharge Discharge Diagnosis / Problem: sob. Discharge Goals Goal(s): Decrease discomfort, Improve function Activity Recommendations Activity Limitations: resume your previous activity . Instructions / Follow-Up Instructions / Follow-Up FOLLOWUP WITH FAMILY DOCTOR : Bill Zendejas ON Mar AT 2:05PM CARDIAC STRESS TEST AND PULMONARY FUNCTION TEST PER FAMILY DOCTOR. BLOOD PRESSURE FOLLOWUP WITH FAMILY DOCTOR. LAB: BMP IN ONE WEEK AND FOLLOW RESULTS WITH FAMILY STARTING ON DIURETIC. Current Hospital Diet Patient's current hospital diet: AHA Diet (Heart Healthy) Discharge Diet Recommended Diet: AHA Diet (Heart Healthy) Pending Studies Studies pending at discharge: no Laboratory Results Hemoglobin A1c Test 04/02/17 03:05 Range/Units Estimated Average Glucose 114 mg/dl Hemoglobin A1c 5.6 4.5-5.6 % Lipid Panel Test 04/02/17 03:05 Range/Units Triglycerides Level 87 0-150 mg/dl Cholesterol Level 97 0-200 mg/dl HDL Cholesterol 36 mg/dl Cholesterol/HDL Ratio 2.7 LDL Cholesterol, Calculated 44 mg/dl Medical Emergencies . Who to Call and When: Medical Emergencies: If at any time you feel your situation is an emergency, please call 911 immediately. . Non-Emergent Contact Non-Emergency issues call your: Primary Care Provider
[2017-04-03] MEDS ORDERED: LISINOPRIL 20 MG TAB PO SCH (09:00)
== END 2017-04-02 15:25 | disposition home or self-care (01) | DRG 293 ==
LOC: C.EDB 08:12 → C.MED 11:06 → ENRESERV 13:21
PROVIDERS: ADMIT Internal Medicine; ATTEND Internal Medicine
DX: I50.31 Acute diastolic (congestive) heart failure (principal); J45.40 Moderate persistent asthma, uncomplicated; E78.5 Hyperlipidemia, unspecified; I10 Essential (primary) hypertension; E66.01 Morbid (severe) obesity due to excess calories; Z79.82 Long term (current) use of aspirin; Z80.9 Family history of malignant neoplasm, unspecified; Z83.3 Family history of diabetes mellitus; Z82.49 Family history of ischemic heart disease and other diseases of the circulatory system

== ENCOUNTER 2017-05-04 08:23 | Inpatient (IN) | payer OTHER ==
[~2017-05-04] VITALS: Ht 190.5 cm; Wt 171.7 kg
[~2017-05-04 08:23] MED LIST changes: +HYDR25TA4 PO; -PRED20TA PO
[2017-05-04] MEDS ORDERED: LISI20TA3 PO (08:38)
[2017-05-04] MEDS ORDERED: ASPI81TA28 PO (08:38)
[2017-05-04] MEDS ORDERED: VNTHFA/IN INH (08:38)
[2017-05-04] MEDS ORDERED: ADVIN50050 INH (08:38)
--- NOTE | 2017-05-04 08:51 | EMERGENCY ROOM VISIT NOTE ---
History Report prepared by Andrea: Kristy Haynes Under the Supervision of: Dr. Savage Lees M.D. First contact with patient: 08:40 Chief Complaint: SHORTNESS OF BREATH Stated Complaint: SOB WHEN WALKING Nursing Triage Summary: pt reports " i was here about a month ago and dx with chf and i think it is getting worse, when i work more than a few steps i get really short of breath." pt reports hx of asthma. History of Present Illness The patient is a 52 year old male who presents to the Emergency Room with complaints of persistent shortness of breath that began several days ago. The patient states that he was evaluated in the hospital 1 month ago for similar symptoms, noting that he was diagnosed with congestive heart failure and cardiomegaly. He states that he followed up with his PCP 1 week later. The patient states that he had an echocardiogram while in the hospital. He denies being on any blood thinners. The patient states that his symptoms are worsened today with short exertions. He states that while in the hospital one month ago he was placed on Lasix and states that he has tried doubling his Lasix, but denies any relief of his symptoms. Source of History: patient Onset: several days ago Position: other (global) Quality: other (shortness of breath) Timing: other (persistent) Modifying Factors (Worsening): exertion Review of Systems See HPI for pertinent positives & negatives. A total of 10 systems reviewed and were otherwise negative. Past Medical & Surgical Medical Problems: (1) Asthma (2) CHF (congestive heart failure) (3) Dyslipidemia (4) Hypertension (5) Obesity, morbid, BMI 40.0-49.9 (6) Pneumonia (7) Psoriasis Surgical Problems: (1) No history of previous surgery Family History FH: cancer FH: diabetes mellitus MOTHER FH: hypertension FH: lung disease Social History Smoking Status: Never Smoker Alcohol Use: occasionally Marital Status: single Housing Status: lives with friends Occupation Status: employed Current/Historical Medications Scheduled Aspirin (Aspirin Ec), 81 MG PO QAM Atorvastatin (Lipitor), 20 MG PO DAILY Fluticasone Prop/Salmeterol (Advair Diskus 500-50 Mcg/Dose), 1 INHA INH BID Furosemide (Lasix), 1 TAB PO DAILY Lisinopril (Prinivil), 20 MG PO QAM Scheduled PRN Albuterol Hfa (Ventolin Hfa), 1-2 PUFFS INH Q6H PRN for Shortness of Breath Allergies Coded Allergies: No Known Allergies (Unverified , 05/04/17) Physical Exam Vital Signs Date Time Temp Pulse Resp B/P (MAP) Pulse Ox O2 Delivery O2 Flow Rate FiO2 05/04/17 10:58 74 20 91/68 95 Room Air 05/04/17 09:39 84 22 112/71 93 Room Air 05/04/17 08:43 93 Room Air 05/04/17 08:43 85 05/04/17 08:40 36.7 93 22 114/70 89 Room Air Physical Exam GENERAL: Patient is in no acute distress. HEENT: No acute trauma, normocephalic atraumatic, mucous membranes moist, no nasal congestion, no scleral icterus. NECK: No stridor, no adenopathy, no meningismus, trachea is midline. LUNGS: Clear to auscultation bilaterally, no wheeze, no rhonchi, breath sounds equal. HEART: Without murmurs gallops or rubs, regular rate and rhythm. ABDOMEN: Soft, nontender, bowel sounds positive, no hernias, no peritonitis. EXTREMITIES: No cyanosis or edema, full range of motion of all the joints without pain or difficulty, no signs for acute trauma. NEUROLOGIC: Oriented x 3, no acute motor or sensory deficits, no focal weakness. SKIN: No rash, no jaundice, no diaphoresis. Medical Decision & Procedures ER Provider Diagnostic Interpretation: X-ray results as stated below per interpretation by me and the radiologist: SINGLE VIEW CHEST CLINICAL HISTORY: Dyspnea. FINDINGS: 2 AP, portable, upright chest radiographs are compared to chest x-ray and chest CT dated 04/01/2017. The examination is degraded by portable technique, large body habitus, and patient rotation. The heart is enlarged. The pulmonary vasculature is noncongested. Bibasilar atelectasis is observed. Chronic interstitial thickening is similar to previous. No airspace consolidation, large pleural effusion, or pneumothorax is seen. The bony thorax is grossly intact. IMPRESSION: Cardiomegaly with no acute cardiopulmonary abnormality. Electronically signed by: Savage Del Cid M.D. 05/04/2017 9:13 AM Dictated Date/Time: 05/04/2017 9:12 AM Laboratory Results 05/04/17 09:00 Red Blood Count 5.57, Mean Corpuscular Volume 88.9, Mean Corpuscular Hemoglobin 31.2, Mean Corpuscular Hemoglobin Concent 35.2, Mean Platelet Volume 10.9, Neutrophils (%) (Auto) 53.6, Lymphocytes (%) (Auto) 37.0, Monocytes (%) (Auto) 5.9, Eosinophils (%) (Auto) 2.8, Basophils (%) (Auto) 0.6, Neutrophils # (Auto) 5.64, Lymphocytes # (Auto) 3.89, Monocytes # (Auto) 0.62, Eosinophils # (Auto) 0.29, Basophils # (Auto) 0.06 05/04/17 09:00 Test 05/04/17 09:00 White Blood Count 10.51 K/uL (4.8-10.8) Red Blood Count 5.57 M/uL (4.7-6.1) Hemoglobin 17.4 g/dL (14.0-18.0) Hematocrit 49.5 % (42-52) Mean Corpuscular Volume 88.9 fL (80-100) Mean Corpuscular Hemoglobin 31.2 pg (25-34) Mean Corpuscular Hemoglobin Concent 35.2 g/dl (32-36) Platelet Count 213 K/uL (130-400) Mean Platelet Volume 10.9 fL (7.4-10.4) Neutrophils (%) (Auto) 53.6 % Lymphocytes (%) (Auto) 37.0 % Monocytes (%) (Auto) 5.9 % Eosinophils (%) (Auto) 2.8 % Basophils (%) (Auto) 0.6 % Neutrophils # (Auto) 5.64 K/uL (1.4-6.5) Lymphocytes # (Auto) 3.89 K/uL (1.2-3.4) Monocytes # (Auto) 0.62 K/uL (0.11-0.59) Eosinophils # (Auto) 0.29 K/uL (0-0.5) Basophils # (Auto) 0.06 K/uL (0-0.2) RDW Standard Deviation 45.6 fL (36.4-46.3) RDW Coefficient of Variation 14.1 % (11.5-14.5) Immature Granulocyte % (Auto) 0.1 % Immature Granulocyte # (Auto) 0.01 K/uL (0.00-0.02) Prothrombin Time 11.3 SECONDS (9.0-12.0) Prothromb Time International Ratio 1.1 (0.9-1.1) Activated Partial Thromboplast Time 26.6 SECONDS (21.0-31.0) Partial Thromboplastin Ratio 1.0 Anion Gap 8.0 mmol/L (3-11) Est Creatinine Clear Calc Drug Dose 109.3 ml/min Estimated GFR () 68.8 Estimated GFR (Non- 59.4 BUN/Creatinine Ratio 11.7 (10-20) Calcium Level 9.0 mg/dl (8.5-10.1) Magnesium Level 2.2 mg/dl (1.8-2.4) Total Bilirubin 1.2 mg/dl (0.2-1) Aspartate Amino Transf (AST/SGOT) 14 U/L (15-37) Alanine Aminotransferase (ALT/SGPT) 24 U/L (12-78) Alkaline Phosphatase 65 U/L (45-117) Troponin I 0.016 ng/ml (0-0.045) Pro-B-Type Natriuretic Peptide 1962 pg/ml (0-900) Total Protein 7.0 gm/dl (6.4-8.2) Albumin 3.9 gm/dl (3.4-5.0) Globulin 3.1 gm/dl (2.5-4.0) Albumin/Globulin Ratio 1.3 (0.9-2) Thyroid Stimulating Hormone (TSH) 1.590 uIu/ml (0.300-4.500) Laboratory results reviewed by me. Medications Administered Medications (Trade) Dose Ordered Sig/Joon Route Start Time Stop Time Status Last Admin Dose Admin Furosemide (Lasix Inj) 40 mg NOW STAT IV 05/04/17 09:45 05/04/17 09:46 DC 05/04/17 09:51 40 MG ECG Indication: SOB/dyspnea Rate (beats per minute): 76 Rhythm: normal sinus Findings: RBBB (incomplete), no acute ischemic change, other (older inferior and anterior lateral infarcts) ED Course 0844: The patient was evaluated in room A12B. A complete history and physical exam was performed. 0945: Ordered Lasix Inj 40 mg IV. 1020: I reevaluated the patient and he is resting comfortably. I discussed the exam findings with him and I discussed the treatment plan. Cardiology will be consulted. 1025: I discussed the patients case with Dr. Jones Cardiology. He states that the patient should be evaluated for further treatment in the hospital. 1039: I reevaluated the patient and updated him on the treatment plan. He verbalized complete understanding and agreement. He will be evaluated for further treatment. 1043: I discussed the patients case with Linda Odom PA-C. She is going to evaluate the patient for further treatment. Medical Decision The patient is a 52 year old male who presents to the ED with complaints of shortness of breath. Differential diagnoses considered include anemia, fluid overload, CHF, electrolyte imbalance, cardiomegaly, pneumonia, PE, ME. There is no leukocytosis or concerning anemia. No significant electrolyte abnormality, kidney failure or hepatitis. There is no coagulopathy. EKG shows a sinus rhythm, no acute ischemia. Cardiac enzyme testing times one is not consistent with acute cardiac injury. Chest x-ray does not show pneumonia or worrisome CHF. BNP was somewhat elevated consistent with fluid overload. Patient did receive IV Lasix. I did talk with cardiology about the patient's presentation and case. They recommended a hospital stay for a further cardiac workup. I talked with the patient and the onsite case manager. The on-call hospitalist was consulted. The cause for the dyspnea is unclear but seems likely a result of fluid overload. Medication Reconcilliation Current Medication List: was personally reviewed by me Consults Time Called: 1020 Consulting Physician: Dr. Jones, Cardiology Returned Call: 1025 I discussed the patients case with Dr. Jones Cardiology. He states that the patient should be evaluated for further treatment in the hospital. Additional Consults: Time Called: 1028 Consulted Physician: Linda Odom PA-C Returned Call: 1043 Additional Comments: I discussed the patients case with Linda Odom PA-C. She is going to evaluate the patient for further treatment. Impression Primary Impression: Shortness of breath Additional Impressions: Fluid overload Hypoxia Scribe Attestation The scribe's documentation has been prepared under my direction and personally reviewed by me in its entirety. I confirm that the note above accurately reflects all work, treatment, procedures, and medical decision making performed by me. Departure Information Dispostion Being Evaluated By Hospitalist Referrals Bill Zendejas D.O. (PCP) Problem Qualifiers
[2017-05-04] MEDS ORDERED: ATOR-22 PO (08:54)
[2017-05-04] MEDS ORDERED: FRS/40 PO (08:54)
--- NOTE | 2017-05-04 09:14 | DIAGNOSTIC IMAGING REPORT ---
SINGLE VIEW CHEST CLINICAL HISTORY: Dyspnea. FINDINGS: 2 AP, portable, upright chest radiographs are compared to chest x-ray and chest CT dated 04/01/2017. The examination is degraded by portable technique, large body habitus, and patient rotation. The heart is enlarged. The pulmonary vasculature is noncongested. Bibasilar atelectasis is observed. Chronic interstitial thickening is similar to previous. No airspace consolidation, large pleural effusion, or pneumothorax is seen. The bony thorax is grossly intact. IMPRESSION: Cardiomegaly with no acute cardiopulmonary abnormality. Electronically signed by: Savage Del Cid M.D. 05/04/2017 9:13 AM Dictated Date/Time: 05/04/2017 9:12 AM
[2017-05-04 09:25] LABS: INR 1.1 (0.9-1.1); PROTHROMBIN TIME (PATIENT) 11.3 SECONDS (9.0-12.0)
[2017-05-04 09:33] LABS: BUN/CREATININE RATIO 11.7 (10-20); CREATININE 1.36 mg/dl (0.60-1.40); MAGNESIUM 2.2 mg/dl (1.8-2.4); POTASSIUM 4.1 mmol/L (3.5-5.1)
[2017-05-04 09:44] LABS: ALB/GLOB RATIO 1.3 (0.9-2); THYROID STIMULATING HORMONE 1.59 uIu/ml (0.300-4.500)
[2017-05-04] MEDS ORDERED: FUROSEMIDE 40 MG/4 ML VIAL IV STA (09:45)
[2017-05-04 09:46] LABS: BASO % 0.6 %; BASO ABS # 0.06 K/uL (0-0.2); COMPLETE YES; EOS % 2.8 %; HEMATOCRIT 49.5 % (42-52); IG% 0.1 %; LYMPH ABS # 3.89 K/uL (1.2-3.4); MEAN CELL VOLUME 88.9 fL (80-100); MEAN CORPUSCULAR HEMOGLOBIN 31.2 pg (25-34); MEAN CORPUSCULAR HGB CONC 35.2 g/dl (32-36); MEAN PLATELET VOLUME 10.9 fL (7.4-10.4); MONO % 5.9 %; NEUT % 53.6 %; PLATELET COUNT 213 K/uL (130-400); RED BLOOD COUNT 5.57 M/uL (4.7-6.1); WHITE BLOOD COUNT 10.51 K/uL (4.8-10.8)
[2017-05-04 11:30] VITALS: O2SAT 97; Ht 190.5 cm; Wt 171.7 kg
[2017-05-04] MEDS ORDERED: ACETAMINOPHEN 325 MG TAB PO PRN (11:45)
[2017-05-04] MEDS ORDERED: ALBUTEROL HFA 8 GM INHALER INH PRN (11:45)
[2017-05-04] MEDS ORDERED: INFLUENZA ADMINISTRATION CHARGE ONE (11:45)
[2017-05-04] MEDS ORDERED: INFLUENZA VIRUS QUAD VACCINE 0.5 ML SYR IM. ONE (11:45)
[2017-05-04] MEDS ORDERED: ONDANSETRON INJ 2 MG/ML 2 ML VIAL IV PRN (11:45)
[2017-05-04] MEDS ORDERED: FURO20TA PO (11:47)
[2017-05-04 12:24] VITALS: BP 104/70; PULSE 82; TEMP 36.6; O2SAT 20
[2017-05-04 12:55] LABS: ARTERIAL BLD GAS O2 SATURATION 94.3 % (90-95); ARTERIAL BLOOD GAS BASE EXCESS 0.5 mEq/L (-9-1.8); ARTERIAL BLOOD GAS HCO3 23 mmol/L (19-24); ARTERIAL BLOOD GAS PO2 73 mm/Hg (80-95); ARTERIAL BLOOD GAS pH 7.48 (7.35-7.45)
[2017-05-04 12:57] LABS: ALLEN TEST POS (POS); O2 ADMINISTRATION ROOM AIR
--- NOTE | 2017-05-04 13:35 | History and Physical ---
History & Physical Date & Time of Service: May 04, 2017 at 11:50 Chief Complaint: Sob When Walking Primary Care Physician: Bill Zendejas D.O. History of Present Illness Source: patient Pt is 52yo M with hx HTN, hyperlipidemia, asthma, psoriasis and in Mar 2017 dx with CHF presents with c/o increased SOB. Pt states previously was getting SOB with walking approx 10 steps. Over past 2 weeks with SOB with walking 5 steps and feels lightheaded. He states if he stops and rests then the lightheadedness resolves and after approx 1-2 minutes the SOB resolves. Pt was on HCTZ and then on 04/24/17 he had messaged his PCP and HCTZ was d/c and started on Lasix 20mg daily. Pt states when started this he felt lightheaded with standing, but that resolved after a couple of days. Pt states he didn't feel that he was urinating any more and doesn't feel that helped his SOB any. He is unsure if he lost any weight over the past month. Pt reports that he self increased the lasix to 40mg once daily over the past 4-5 days. He also doesn't feel that helped any more with decreasing SOB and doesn't feel urinating more. Pt doesn't feel his SOB is related to asthma. Denies any wheezing. He has tried taking Ventolin inhaler 1- 2 times a day when he experiences the SOB without any relief. Pt states last week started with some rhinorrhea and intermittent dry cough which he reports rhinorrhea resolved and cough almost resolved. Denies noticing any lower extremity edema. Denies syncopal episode. Denies claudication symptoms. Denies hx stress test or cardiac cath in past. Denies fever/chills, diaphoresis, N/V/D/ C, CHANDRA, vision changes, neck pain, CP, orthopnea, palpitations, sore throat, choking, otalgia, abdominal pain, paresthesias, weakness, extremity weakness, urinary symptoms. Denies any changes with rashes or his psoriasis. Seen in ER today and had normal WBC, BNP: 1962, negative Troponin. Normal TSH. Single view CXR showed cardiomegaly was limited study. EKG NSR with incomplete RBBB, no significant change since 04/02/17. BP initially 114/70 and after Lasix 40mg IV was 91/68. O2 sats 89-95% on room air. Pulse: 74-93. ER physician contacted cardiology - Dr Jones who recommended pt be admitted for further evaluation. Pt was admitted on 04/01/17 for SOB and dx with CHF. BNP was 1971 on previous admission on 04/01/17. ECHO at that time was limited study with grossly normal valves, grossly normal LVEF, grossly normal cardiac chamber size, very poor acoustic windows. Had CT angio showed no PE's. He was dx home on HCTZ 25mg daily at that time. Past Medical/Surgical History Medical Problems: (1) Asthma Status: Chronic (2) Dyslipidemia Status: Chronic (3) Hypertension Status: Chronic (4) Obesity, morbid, BMI 40.0-49.9 Status: Chronic (5) Psoriasis Status: Chronic Surgical Problems: (1) No history of previous surgery Status: Chronic Family History FH: cancer FATHER (lung CA) FH: diabetes mellitus MOTHER FH: hypertension FH: lung disease Social History Smoking Status: Never Smoker Smokeless Tobacco Use: No Alcohol Use: occasionally Drug Use: none Marital Status: single Occupational Status: employed Multi-Drug Resistant Organisms History of MDRO: No Allergies Coded Allergies: No Known Allergies (Unverified , 05/04/17) Home Medications Scheduled Aspirin (Aspirin Ec), 81 MG PO QAM Atorvastatin (Lipitor), 20 MG PO DAILY Fluticasone Prop/Salmeterol (Advair Diskus 500-50 Mcg/Dose), 1 INHA INH BID Furosemide (Lasix), 1 TAB PO DAILY Lisinopril (Prinivil), 20 MG PO QAM Scheduled PRN Albuterol Hfa (Ventolin Hfa), 1-2 PUFFS INH Q6H PRN for Shortness of Breath Review of Systems See HPI for pertinent positives & negatives. A total of 10 systems reviewed and were otherwise negative Physical Exam Vital Signs Date Time Temp Pulse Resp B/P (MAP) Pulse Ox O2 Delivery O2 Flow Rate FiO2 05/04/17 10:58 74 20 91/68 95 Room Air 05/04/17 09:39 84 22 112/71 93 Room Air 05/04/17 08:43 93 Room Air 05/04/17 08:43 85 05/04/17 08:40 36.7 93 22 114/70 89 Room Air General Appearance: no apparent distress, + obese Head: normocephalic, atraumatic Eyes: normal inspection, PERRL, EOMI ENT: normal ENT inspection, hearing grossly normal, TMs normal, pharynx normal Neck: supple, no adenopathy, no JVD, trachea midline Respiratory/Chest: lungs clear, normal breath sounds, no respiratory distress, no accessory muscle use Cardiovascular: regular rate, rhythm, no murmur Abdomen/GI: normal bowel sounds, non tender, soft, + pertinent finding (softly distended secondary to adipose tissue) Extremities/Musculoskelatal: normal capillary refill, no pedal edema, normal range of motion, non-tender Neurologic/Psych: no motor/sensory deficits, alert, normal mood/affect, oriented x 3 Skin: + rash (+erythematous plaques to bilateral lower legs, +excoriations and erythematous dry patches to back) Diagnostics Laboratory Results Results Past 24 Hours Test 05/04/17 09:00 Range/Units White Blood Count 10.51 4.8-10.8 K/uL Red Blood Count 5.57 4.7-6.1 M/uL Hemoglobin 17.4 14.0-18.0 g/dL Hematocrit 49.5 42-52 % Mean Corpuscular Volume 88.9 80-100 fL Mean Corpuscular Hemoglobin 31.2 25-34 pg Mean Corpuscular Hemoglobin Concent 35.2 32-36 g/dl Platelet Count 213 130-400 K/uL Mean Platelet Volume 10.9 7.4-10.4 fL Neutrophils (%) (Auto) 53.6 % Lymphocytes (%) (Auto) 37.0 % Monocytes (%) (Auto) 5.9 % Eosinophils (%) (Auto) 2.8 % Basophils (%) (Auto) 0.6 % Neutrophils # (Auto) 5.64 1.4-6.5 K/uL Lymphocytes # (Auto) 3.89 1.2-3.4 K/uL Monocytes # (Auto) 0.62 0.11-0.59 K/uL Eosinophils # (Auto) 0.29 0-0.5 K/uL Basophils # (Auto) 0.06 0-0.2 K/uL RDW Standard Deviation 45.6 36.4-46.3 fL RDW Coefficient of Variation 14.1 11.5-14.5 % Immature Granulocyte % (Auto) 0.1 % Immature Granulocyte # (Auto) 0.01 0.00-0.02 K/uL Prothrombin Time 11.3 9.0-12.0 SECONDS Prothromb Time International Ratio 1.1 0.9-1.1 Activated Partial Thromboplast Time 26.6 21.0-31.0 SECONDS Partial Thromboplastin Ratio 1.0 Sodium Level 140 136-145 mmol/L Potassium Level 4.1 3.5-5.1 mmol/L Chloride Level 105 98-107 mmol/L Carbon Dioxide Level 27 21-32 mmol/L Anion Gap 8.0 3-11 mmol/L Blood Urea Nitrogen 16 7-18 mg/dl Creatinine 1.36 0.60-1.40 mg/dl Est Creatinine Clear Calc Drug Dose 109.3 ml/min Estimated GFR () 68.8 Estimated GFR (Non- 59.4 BUN/Creatinine Ratio 11.7 10-20 Random Glucose 99 70-99 mg/dl Calcium Level 9.0 8.5-10.1 mg/dl Magnesium Level 2.2 1.8-2.4 mg/dl Total Bilirubin 1.2 0.2-1 mg/dl Aspartate Amino Transf (AST/SGOT) 14 15-37 U/L Alanine Aminotransferase (ALT/SGPT) 24 12-78 U/L Alkaline Phosphatase 65 45-117 U/L Troponin I 0.016 0-0.045 ng/ml Pro-B-Type Natriuretic Peptide 1962 0-900 pg/ml Total Protein 7.0 6.4-8.2 gm/dl Albumin 3.9 3.4-5.0 gm/dl Globulin 3.1 2.5-4.0 gm/dl Albumin/Globulin Ratio 1.3 0.9-2 Thyroid Stimulating Hormone (TSH) 1.590 0.300-4.500 uIu/ml Diagnostic Radiology CXR: IMPRESSION: Cardiomegaly with no acute cardiopulmonary abnormality. EKG EKG Confirmed By: LONNIE RASHID Normal sinus rhythm Possible Left atrial enlargement Incomplete right bundle branch block Possible Right ventricular hypertrophy Inferior infarct (cited on or before 01-APR-2017) Possible Anterolateral infarct (cited on or before 01-APR-2017) Abnormal ECG When compared with ECG of 02-APR-2017 07:06, No significant change was found ... Impression Assessment and Plan 52 y/o M with hx asthma, HTN, hyperlipidemia, psoriasis, recent dx CHF with admission in 03/2017, presents with increased SOB with exertion of 5 steps with associated lightheaded sensation. SOB/ HYPOXIA Acute on Chronic Diastolic CHF vs obesity hypoventilation -Will order two view CXR as single view was limited -Will check orthostatics with pt describing lightheadedness -Standing daily weights -Fluid restriction 2L -Lasix 40mg IV BID today -ABG -Nocturnal O2 ordered plus daytime O2 per protocol prn -Cardiology consult -Pulmonology consult -BMP in am -Consider out pt sleep study to r/o Sleep apnea -Plan on 2 step and pulse ox overnight studies prior to discharge to consider if pt requires home O2 HTN: -Continue Lisinopril HYPERLIPIDEMIA -Continue Lipitor - 04/02/17 lipid panel: Total cholesterol: 97, LDL: 44, HDL: 36 ASTHMA: -Continue Advair BID and Albuterol inhaler every 4-6 hrs prn SOB/wheezing -Cannot find results of PFTs in past. Consider PFT's. Had HgbA1c of 5.6 in 03/2017 DVT PROPHYLAXIS - Heparin SQ DISPOSITION -admit tele - Full Code as per discussion with pt -Follows with Dr Zendejas for routine care Pt was seen with Dr Olvera Level of Care Telemetry Resuscitation Status FULL RESUSCITATION VTE Prophylaxis VTE Risk Assessment Done? Y/N: Yes Risk Level: Moderate Given or contraindicated: Unfractionated heparin SQ Note ATTENDING ADDENDUM Record reviewed. Patient interviewed and examined in his room. Care coordinated with Isis Jones PA-C. Please refer to her documentation for patient's history. Briefly, 52 YO male experiencing progressive dyspnea with exertion. History of asthma. 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 Hospitalized in March of this year. [place] and PE ruled out. Pro-BNP elevated. Echo was limited, but demonstrated normal LV wall motion and function, no apparent hemodynamic valvular disease. Symptoms improved with diuresis. Now with worsening VILLAFANA after walking only 5 steps. No fever, cough, wheezing, chest pain. EXAM: General- no acute distress VS- as noted HEENT- anicteric Neck- neck veins difficult to assess due to body habitus Lungs- clear to auscultation Heart- RRR, no murmur, gallop, or rub appreciated Abdomen- obese, soft, nontender Extremities- 1+ pretibial edema, no calf tenderness Neuro- alert DATA: Lab studies as noted. CXR- cardiomegaly, no infiltrates, effusions, CHF. EKG performed at 09:08 reviewed and demonstrated NSR at 76 / minute, incomplete RBBB, poor R-wave progression. . ASSESSMENT AND PLAN: Dyspnea on exertion, mechanism uncertain. History of asthma, but no apparent exacerbation. BMI 48. Consider obstructive sleep apnea and / or obesity hypoventilation syndrome. No pulmonary embolism per CTA last month. Echo showed normal LVEF. Dyspnea may be due to either cardiac or pulmonary etiologies. Consult Cardiology and Pulmonary Medicine. Please refer to EMERALD Milner's documentation for discussion of other issues. David Olvera MD . Additional Copies To Bill Zendejas D.O.
[2017-05-04] MEDS: HEPARIN SOD 5000 UNIT/0.5 ML CARP SQ SCH ×2 (14:33→20:31)
[2017-05-04 15:29] LABS: CKMB/CK RATIO 1.2 (0-3.0)
[2017-05-04 15:49] VITALS: BP 98/64; PULSE 76; TEMP 36.4; O2SAT 94
[2017-05-04 16:00] VITALS: O2SAT 94
[2017-05-04] MEDS: FUROSEMIDE INJ 40 MG in SYRINGE 0 ML IV SCH (16:47)
--- NOTE | 2017-05-04 17:07 | CARDIOLOGY CONSULTATION ---
DATE OF CONSULTATION: 05/04/2017 CONSULTATION FOR: Dr. Olvera. REASON FOR CONSULTATION: Shortness of breath. HISTORY OF PRESENT ILLNESS: This is a 52-year-old male patient who was just recently admitted to the hospital with shortness of breath, felt possibly due to congestive heart failure. He was started on diuretics, but after returning home, he never really felt better. He has had continued shortness of breath with minimal activities. No chest, arm or back discomfort. No tachycardia or heart palpitations. He does have a longstanding history of asthma. He states he has not been wheezing or had a productive cough. He has been using his inhalers. During his last hospital admission, he did have an echocardiogram. Unfortunately, he is a large man and the acoustic windows were not very helpful. He returned to the Emergency Department with once again complaints of shortness of breath and dyspnea on exertion. He has had no fever or chills. He denies productive cough. He has no prior history of DVT or pulmonary emboli. He did have a CT of the chest last admission that failed to show any evidence of pulmonary emboli. I have been asked to see him in regards to possibility of cardiac origin for his symptoms. ALLERGIES: No known medical allergies. PAST MEDICAL HISTORY: The patient has been treated for asthma for many years. He is also treated for hypertension, dyslipidemia and psoriasis. He has no significant cardiac history. He has a history of obesity with a BMI greater than 40. FAMILY MEDICAL HISTORY: Significant for mother with diabetes, hypertension, and lung disease. SOCIAL HISTORY: The patient is a never smoker. He is currently single. REVIEW OF SYSTEMS: A 10-point review of systems is negative except for the history of chief complaint. PHYSICAL EXAMINATION: GENERAL: He is alert and oriented. He is a large man. VITAL SIGNS: Blood pressure is 112/70, pulse is regular at 80. He is afebrile. Respirations are 22. HEENT: Normocephalic. Pupils are equal and reactive to light. Extraocular muscles intact bilaterally. NECK: The neck veins are flat. Carotids have good upstrokes bilaterally without bruits. Thyroid is not palpable. RESPIRATORY: Breath sounds equal bilaterally and clear to auscultation. CARDIOVASCULAR: Heart has a regular rhythm. Normal S1, S2. No S3, S4. No cardiac rubs or murmurs. GASTROINTESTINAL: Abdomen is soft, nontender without organomegaly. EXTREMITIES: Free of edema, digit clubbing, or cyanosis. NEUROLOGIC: Grossly intact. SKIN: Warm to touch. LYMPH NODES: Negative to palpation. LABORATORY DATA: Hemoglobin is 17.4, WBC count is 10.5. Potassium is 4.1, creatinine is 1.36, pro-B natriuretic peptide is 1962. Cardiac markers are negative. TSH level is 1.6. IMPRESSION: 1. Dyspnea on exertion and shortness of breath in an obese male with a history of asthma. I would rule out an acute exacerbation of his reactive airways. 2. Less likely to be congestive heart failure. 3. Mild essential hypertension. 4. Dyslipidemia. RECOMMENDATIONS: The last echocardiogram several weeks ago unfortunately, had poor acoustic windows. He is a large man, but I think we can have better imaging and I will order another echocardiogram for my review. He is scheduled to have a consultation with a security flex utility officer, which I think is a good idea. I will have further recommendations following the above.
[2017-05-04 19:37] VITALS: BP 110/68; PULSE 81; TEMP 36.5; O2SAT 96
[2017-05-04] MEDS: FLUTICASONE/SALMETEROL (ADVAIR) 500/50 INH 14 PUFF INH SCH (20:28)
--- NOTE | 2017-05-04 20:53 | Pulmonary Consultation ---
History General Date of Service: May 04, 2017. Stated Complaint: Progressive hypoxemia HPI The patient is a 52 year old male who presents to [facility] with complaints of Chf,Hypoxia. The patient's primary care provider is Bill Zendejas D.O.. 52-year-old male admitted for progressive hypoxemia. He was recently admitted to the [facility] between 04/01/2017 and 04/02/2017 for notable hypoxemia/dyspnea on exertion. The patient has noted progressive dyspnea on exertion over the past half a year. During that time he also notes increasing bilateral lower extremity swelling. He has a significant PmHx: Asthma diagnosed at age 18 ( well controlled), morbid obesity, possible diastolic heart failure, psoriasis and hypertension. During this time the patient has been diligent with his use of his Advair as well as Proventil inhaler. The patient has had asthma since he was 19 years old in during his previous attacks is noted tremendous relief of his shortness of breath with Proventil inhaler but over this time S had almost no relief when using his asthma medication. He denies: Sick contacts, recent travel, pleurisy, unintentional weight loss, night sweats, fevers, classic cardiac chest pain, hemoptysis or productive sputum. He does state that the last half a years signs and symptoms are very different than his previous asthma type signs and symptoms. Current workup EKG 05/04/2017: Sinus rhythm, rate 76, P-wave enlargement, incomplete right bundle-branch block Chest x-ray 12/27/2016: Cephalization, hilar fullness right greater than left, peribronchial cuffing WBC: 10 K Platelets: 231K AB.48/32/73/23 on RA INR: 1.1 PTT: 11.3 APTT: 26.6 BUN: 16 Creatinine: 1.36 Total bili: 1.2 AST: 14 BMP: 1962 Troponin: 0.016 Current Treatment: 1. Aspirin 81 milligrams 2. Lipitor 20 milligrams daily 3. Lisinopril 20 milligrams daily 4. Advair disc 500/51 puff b.i.d. 5. Lasix IV 40 milligrams b.i.d. 6. Subcu heparin 5000 q.8 hours 7. Ventolin HFA 2 puffs q.6 hours Previous workup CTA thorax 04/01/2017 Suboptimal study No definitive pulmonary emboli noted 2 mm right upper lobe pulmonary nodule Enlarged pulmonary artery to aortic ratio suggesting volume overload Chest x-ray 04/01/2017 Cardiomegaly, hilar fullness, cephalization Chest x-ray 05/04/2017 Cardiomegaly, hilar fullness right greater than left Echocardiogram 04/01/2017 Overall poor acoustic windows Left ventricle: EF=60-65% EKG 04/02/2017 Sinus rhythm rate 80 P-wave enlargement Incomplete right bundle branch block ProBNP (04/01/2017) 1971 Historian: patient, EMS Review of Systems Constitutional: reports: malaise, weakness Eyes: reports: no symptoms ENT: reports: no symptoms Cardiovascular: reports: as stated in HPI Respiratory: reports: as stated in HPI Gastrointestinal: reports: no symptoms Genitourinary - Male: reports: no symptoms Musculoskeletal: reports: no symptoms Integumentary: reports: no symptoms Neurologic: reports: no symptoms Psychiatric: reports: no symptoms Endocrine: no symptoms Hematologic / Lymphatic: no symptoms Allergic / Immunologic: no symptoms Past Medical History Past Medical History: 1. Asthma (diagnosed at age 23-skin testing demonstrated multiple environmental allergens per notes never on desensitization program) 2. Environmental allergies 3. Pneumonia 1994 4. Possible exposure care seen fumes 5. Psoriasis 6. Hyperlipidemia 7. Hypertension 8. Morbid obesity Past Surgical History: no surgical history Family History FH: cancer FATHER (lung CA) FH: diabetes mellitus MOTHER FH: hypertension FH: lung disease Father of lung cancer Mother: Diabetes, retinopathy, dimension Brother: Lymphedema secondary to infectious complication Social History Tobacco: 2nd had exposure Alcohol: No significant history IVDU/drug use: No history Hx Tobacco Use In Past Year?: No Smoking Status: Never Smoker Marital status: single Occupational Status: employed History of MDRO History of MDRO: No Allergies Coded Allergies: No Known Allergies (Unverified , 05/04/17) Current Medications Reported Home Medications Medications Dose Route/Sig Max Daily Dose Days Date Category Lasix (Furosemide) 20 Mg Tab 1 Tab PO DAILY 90 05/04/17 Reported Lipitor (Atorvastatin Calcium) 20 Mg Tab 20 Mg PO DAILY 05/04/17 Reported Aspirin Ec (Aspirin) 81 Mg Tab 81 Mg PO QAM 04/01/17 Reported Ventolin Hfa (Albuterol) 200 Puffs/27640 Mcg Aers 1-2 Puffs INH Q6H PRN 04/01/17 Reported Advair Diskus 500-50 Mcg/Dose (Fluticasone Prop/Salmeterol) 14 Puff/1 Inhaler Aerp 1 Inha INH BID 04/01/17 Reported Prinivil (Lisinopril) 20 Mg Tab 20 Mg PO QAM 04/01/17 Reported Physical Physical Exam Vital Signs: Date Time Temp Pulse Resp B/P (MAP) Pulse Ox O2 Delivery O2 Flow Rate FiO2 05/04/17 19:37 36.5 81 20 110/68 (82) 96 Room Air 05/04/17 16:00 94 Room Air 05/04/17 15:49 36.4 76 20 98/64 (75) 94 Room Air 05/04/17 12:24 36.6 82 20 104/70 (81) 20 Room Air 98.0 05/04/17 12:04 73 20 103/64 97 05/04/17 11:58 77 05/04/17 11:30 97 Room Air 05/04/17 10:58 74 20 91/68 95 Room Air 05/04/17 09:39 84 22 112/71 93 Room Air 05/04/17 08:43 93 Room Air 05/04/17 08:43 85 05/04/17 08:40 36.7 93 22 114/70 89 Room Air General Appearance: NO APPARENT DISTRESS Head: NORMOCEPHALIC, ATRAUMATIC Eyes: PERRLA, NO DISCHARGE, EOMI, SCLERAE NORMAL ENT: NORMAL EAR EXAM, NORMAL NASAL EXAM, NORMAL MOUTH EXAM, NORMAL THROAT EXAM , NORMAL DENTAL EXAM Neck: NORMAL RANGE OF MOTION, NO TENDERNESS, TRACHEA MIDLINE, NO STRIDOR Respiratory: BREATH SOUNDS NORMAL, CLEAR TO AUSCULTATION, CLEAR TO PERCUSSION, NO RESPIRATORY DISTRESS, other (Thoracic ultrasound shows B lines at the bases bilaterally no signs of pleural effusions) Cardiovasular: REGULAR RATE/RHYTHM, NORMAL S1S2, NO M/G/R, NO MURMUR Abdomen: NON TENDER, NORMAL BOWEL SOUNDS, NO REBOUND, NO MASSES, NO GUARDING, NO ORGANOMEGALY Genitourinary - Male: EXTERNAL GENITALIA NORMAL Back: NORMAL INSPECTION, NO MIDLINE TENDERNESS, NO CVA TENDERNESS, NO PARAVERTEBRAL TTP Upper Extremities: NO EDEMA, NO DEFORMITY, NORMAL ROM Lower Extremities: edema, other (Bilateral lower extremity stasis dermatitis) Edema: Bilateral LE (1+) Pulses: carotid (R) (2+), carotid (L) (2+), posterior tibial (R) (2+), posterior tibial (L) (2+) Neuro: ALERT, ORIENTED x 3, NORMAL MOTOR EXAM, NORMAL SENSATION, NORMAL CEREBELLAR EXAM Reflexes: biceps (R) (2+), bicpes (L) (2+), achilles (R) (2+), achilles (L) (2+ ) Babinski Testing: right (downgoing), left (downgoing) Psychiatric: NORMAL AFFECT, NO SUICIDAL IDEATION, CONTRACTS FOR SAFETY Diagnostics Labs Results Past 24 Hours Test 05/04/17 09:00 05/04/17 12:41 05/04/17 14:57 Range/Units White Blood Count 10.51 4.8-10.8 K/uL Red Blood Count 5.57 4.7-6.1 M/uL Hemoglobin 17.4 14.0-18.0 g/dL Hematocrit 49.5 42-52 % Mean Corpuscular Volume 88.9 80-100 fL Mean Corpuscular Hemoglobin 31.2 25-34 pg Mean Corpuscular Hemoglobin Concent 35.2 32-36 g/dl Platelet Count 213 130-400 K/uL Mean Platelet Volume 10.9 7.4-10.4 fL Neutrophils (%) (Auto) 53.6 % Lymphocytes (%) (Auto) 37.0 % Monocytes (%) (Auto) 5.9 % Eosinophils (%) (Auto) 2.8 % Basophils (%) (Auto) 0.6 % Neutrophils # (Auto) 5.64 1.4-6.5 K/uL Lymphocytes # (Auto) 3.89 1.2-3.4 K/uL Monocytes # (Auto) 0.62 0.11-0.59 K/uL Eosinophils # (Auto) 0.29 0-0.5 K/uL Basophils # (Auto) 0.06 0-0.2 K/uL RDW Standard Deviation 45.6 36.4-46.3 fL RDW Coefficient of Variation 14.1 11.5-14.5 % Immature Granulocyte % (Auto) 0.1 % Immature Granulocyte # (Auto) 0.01 0.00-0.02 K/uL Prothrombin Time 11.3 9.0-12.0 SECONDS Prothromb Time International Ratio 1.1 0.9-1.1 Activated Partial Thromboplast Time 26.6 21.0-31.0 SECONDS Partial Thromboplastin Ratio 1.0 Sodium Level 140 136-145 mmol/L Potassium Level 4.1 3.5-5.1 mmol/L Chloride Level 105 98-107 mmol/L Carbon Dioxide Level 27 21-32 mmol/L Anion Gap 8.0 3-11 mmol/L Blood Urea Nitrogen 16 7-18 mg/dl Creatinine 1.36 0.60-1.40 mg/dl Est Creatinine Clear Calc Drug Dose 109.3 ml/min Estimated GFR () 68.8 Estimated GFR (Non- 59.4 BUN/Creatinine Ratio 11.7 10-20 Random Glucose 99 70-99 mg/dl Calcium Level 9.0 8.5-10.1 mg/dl Magnesium Level 2.2 1.8-2.4 mg/dl Total Bilirubin 1.2 0.2-1 mg/dl Aspartate Amino Transf (AST/SGOT) 14 15-37 U/L Alanine Aminotransferase (ALT/SGPT) 24 12-78 U/L Alkaline Phosphatase 65 45-117 U/L Troponin I 0.016 0.016 0-0.045 ng/ml Pro-B-Type Natriuretic Peptide 1962 0-900 pg/ml Total Protein 7.0 6.4-8.2 gm/dl Albumin 3.9 3.4-5.0 gm/dl Globulin 3.1 2.5-4.0 gm/dl Albumin/Globulin Ratio 1.3 0.9-2 Thyroid Stimulating Hormone (TSH) 1.590 0.300-4.500 uIu/ml Arterial Blood pH 7.48 7.35-7.45 Arterial Blood Partial Pressure CO2 32 35-46 mmHg Arterial Blood Partial Pressure O2 73 80-95 mm/Hg Arterial Blood HCO3 23 19-24 mmol/L Arterial Blood Oxygen Saturation 94.3 90-95 % Arterial Blood Base Excess 0.5 -9-1.8 mEq/L Arterial Blood Gas Delivery ROOM AIR Gregorio Test POS POS Total Creatine Kinase 154 39-308 U/L Creatine Kinase MB 1.9 0.5-3.6 ng/ml Creatine Kinase MB Ratio 1.2 0-3.0 Diagnostic Radiology Chest x-ray 12/27/2016: Cephalization, hilar fullness right greater than left, peribronchial cuffing EKG EKG 05/04/2017: Sinus rhythm, rate 76, P-wave enlargement, incomplete right bundle-branch block Impression Assessment and Plan 52-year-old male admitted for progressive dyspnea on exertion: 1. Dyspnea on exertion: At this time the patient is physical exam as well as clinical history are not suggestive of acute asthma exacerbation. The years or more in line with progressive diastolic dysfunctioning. I do agree with continuing his current diuresis. I also suggest that we obtain a right heart catheterization as an echocardiogram in this particular patient would most likely be futile. I do suggest we consult Dr. Lee Mistry of the [facility] Cardiology Department for right heart catheterization. 2. Asthma: At this time I do not believe the patient is having an active asthma exacerbation but I do suggest we continue on his current Advair and intermittent Proventil inhaler. 3. Sleep apnea: The patient does have a history as well as physical exam consistent with sleep apnea. When he is at his baseline status suggest we perform nocturnal desaturation study or even possible further workup as an outpatient with PSG evaluation.
[2017-05-04 23:49] VITALS: BP 102/73; PULSE 77; TEMP 36.5; O2SAT 95
[2017-05-05] VITALS (7 sets, daily range): BP systolic 96–117; BP diastolic 69–72; PULSE 74–88; TEMP 36.5–36.8; O2SAT 92–98
[2017-05-05] MEDS: HEPARIN SOD 5000 UNIT/0.5 ML CARP SQ SCH ×2 (05:41→14:02)
[2017-05-05 06:49] LABS: BUN/CREATININE RATIO 12.5 (10-20); CALCIUM 9.1 mg/dl (8.5-10.1); CREATININE 1.39 mg/dl (0.60-1.40); POTASSIUM 4.1 mmol/L (3.5-5.1)
[2017-05-05] MEDS: FLUTICASONE/SALMETEROL (ADVAIR) 500/50 INH 14 PUFF INH SCH (08:16)
[2017-05-05] MEDS: FUROSEMIDE INJ 40 MG in SYRINGE 0 ML IV SCH ×2 (08:17→16:45)
[2017-05-05] MEDS ORDERED: LISINOPRIL 20 MG TAB PO SCH (09:00)
[2017-05-05] MEDS ORDERED: ATORVASTATIN 20 MG TAB PO SCH (09:00)
[2017-05-05] MEDS ORDERED: ASPIRIN 81 MG ECTAB PO SCH (09:00)
--- NOTE | 2017-05-05 11:51 | Progress Note ---
Internal Med Progress Note Date of Service: May 05, 2017. Provider Documentation: SUBJECTIVE: The patient was seen and examined NO Wheezing and or SOB at rest Gets SOB on minimal exertion ~1 month NO Chest pain,palpitation,No nausea and or vomiting May have gained weight Feels a little better with IV Lasix OBJECTIVE: Vital Signs-as noted below Exam: General-no distress at rest Very Obese Eyes-normal ENT-normal Neck-supple Lungs-Clear to ausucltate bilaterally Heart-Regular,no murmur appreciated Abdomen-Benign,difficult to feel for any masses Extremities-Trace edema bilaterally Neuro-AAOx3 Lab data as noted below. ASSESSMENT & PLAN: 52 y/o M with hx asthma as a child, HTN, hyperlipidemia, psoriasis, recent dx CHF with admission in 03/2017, presents with increased SOB with exertion of 5 steps with associated lightheaded sensation. SOB/ HYPOXIA Acute on Chronic Diastolic CHF vs obesity hypoventilation syndrome Has been on Lasix 40mg BID IV,Fluid restriction and daily weight Nocturnal O2 ordered plus daytime O2 per protocol prn Cardiology consult-appreciate input May need Cardiac Cath Appreciate Pulmonology consult -advised Cardiac cath Nocturnal Pulse Oximetry dose Consider out pt sleep study to r/o Sleep apnea Plan on 2 step and pulse ox overnight studies prior to discharge to consider if pt requires home O2 Clinically a little better today ECHO:: * There is moderate concentric left ventricular hypertrophy. * The left ventricular ejection fraction is grossly normal. * Flattened septum is consistent with RV pressure overload. * The right ventricular systolic function is severely reduced. * The left atrial size is normal. * The right atrium is severely dilated. * Severe pulmonary hypertension is present. Has Severe Pulmonary Hypertension (likely secondary to Sleep Apnea-not diagnosed yet) with Acute RV failure He will be transferred to [facility] under the care of Dr Soni HTN: -Continue Lisinopril HYPERLIPIDEMIA -Continue Lipitor - 04/02/17 lipid panel: Total cholesterol: 97, LDL: 44, HDL: 36 ASTHMA: -Continue Advair BID and Albuterol inhaler every 4-6 hrs prn SOB/wheezing -Cannot find results of PFTs in past. Consider PFT's. -Clinically not in any exacerbation now -continue supportive measures Had HgbA1c of 5.6 in 03/2017 DVT PROPHYLAXIS - Heparin SQ DISPOSITION -admit tele - Full Code as per discussion with pt -Follows with Dr Zendejas for routine care Vital Signs: Date Time Temp Pulse Resp B/P (MAP) Pulse Ox O2 Delivery O2 Flow Rate FiO2 05/05/17 15:21 36.5 79 18 115/69 (84) 98 05/05/17 12:45 Room Air 05/05/17 12:00 Room Air 05/05/17 11:05 36.6 74 18 96/71 (79) 96 05/05/17 08:29 Room Air 05/05/17 08:15 77 117/72 (87) 05/05/17 08:00 Room Air 05/05/17 07:34 36.7 76 20 101/69 (80) 93 05/05/17 05:55 88 16 92 Room Air 05/05/17 04:00 Room Air 05/05/17 03:40 36.8 79 20 107/70 (82) 97 Room Air 05/05/17 00:00 Room Air 05/04/17 23:49 36.5 77 20 102/73 (83) 95 Room Air 05/04/17 20:00 Room Air 05/04/17 19:37 36.5 81 20 110/68 (82) 96 Room Air 05/04/17 16:00 94 Room Air 05/04/17 15:49 36.4 76 20 98/64 (75) 94 Room Air Lab Results: Results Past 24 Hours Test 05/04/17 20:59 05/05/17 05:49 Range/Units Total Creatine Kinase 177 39-308 U/L Creatine Kinase MB 1.8 0.5-3.6 ng/ml Creatine Kinase MB Ratio 1.0 0-3.0 Troponin I 0.018 0-0.045 ng/ml Sodium Level 140 136-145 mmol/L Potassium Level 4.1 3.5-5.1 mmol/L Chloride Level 104 98-107 mmol/L Carbon Dioxide Level 26 21-32 mmol/L Anion Gap 10.0 3-11 mmol/L Blood Urea Nitrogen 17 7-18 mg/dl Creatinine 1.39 0.60-1.40 mg/dl Est Creatinine Clear Calc Drug Dose 105.0 ml/min Estimated GFR () 67.1 Estimated GFR (Non- 57.9 BUN/Creatinine Ratio 12.5 10-20 Random Glucose 89 70-99 mg/dl Calcium Level 9.1 8.5-10.1 mg/dl
--- NOTE | 2017-05-05 13:16 | ECHOCARDIOGRAM REPORT ---
*NOTICE TO RECEIVING REPUBLICAN AGENCY This information is strictly Confidential and protected under [place] law. [place] law prohibits you from making any further disclosure of this information unless further disclosure is expressly permitted by the written consent of the person to whom it pertains or is authorized by law. A general authorization for the release of medical or other information is not sufficient for this purpose. Hospital accepts no responsibility if the information is made available to any other person, INCLUDING THE PATIENT. Interpretation Summary * Name: MATY NEFF Study Date: 05/05/2017 06:44 AM BP: 101/69 mmHg * Patient Location: C.2T\S\E217\S\1 HR: 126 * : 1965 (M/d/yyyy) Gender: Male Height: 75 in * Age: 52 yrs Ethnicity: CA Weight: 381 lb * Ordering Physician: Isael Jones * Referring Physician: Self, Referred * Performed By: Lilli Vieira RUST * * Reason For Study: CHF * BSA: 2.9 m2 * -- Conclusions -- * There is moderate concentric left ventricular hypertrophy. * The left ventricular ejection fraction is grossly normal. * Flattened septum is consistent with RV pressure overload. * The right ventricular systolic function is severely reduced. * The left atrial size is normal. * The right atrium is severely dilated. * Severe pulmonary hypertension is present. Procedure Details * A complete two-dimensional transthoracic echocardiogram was performed (2D, M-mode, Doppler and color flow Doppler). Left Ventricle * There is moderate concentric left ventricular hypertrophy. * The left ventricular ejection fraction is grossly normal. * Flattened septum is consistent with RV pressure overload. Right Ventricle * The right ventricle is severely dilated. * The right ventricular systolic function is severely reduced. Atria * The left atrial size is normal. * The right atrium is severely dilated. * There is no evidence of atrial septal defect, but resolution does not allow assessment for a patent foramen ovale. Mitral Valve * The mitral valve is grossly normal. * Significant mitral regurgitation is absent. Tricuspid Valve * The tricuspid valve is not well visualized, but is grossly normal. * There is mild tricuspid regurgitation. Aortic Valve * The aortic valve is trileaflet. * Aortic stenosis is absent. * There is no significant aortic regurgitation. Pulmonic Valve * The pulmonic valve is not well visualized. Pericardium/Pleural * Small pericardial effusion. MMode 2D Measurements and Calculations IVSd 1.5 cm IVSs 1.7 cm LVIDd 4.7 cm LVIDs 4.0 cm LVPWd 1.3 cm LVPWs 2.1 cm IVS/LVPW 1.2 FS 14.9 % EDV(Teich) 100.1 ml ESV(Teich) 68.5 ml EF(Teich) 31.6 % EDV(cubed) 100.9 ml ESV(cubed) 62.3 ml EF(cubed) 38.3 % % IVS thick 12.4 % % LVPW thick 64.5 % LV mass(C)d 255.7 grams LV mass(C)dI 88.6 grams/m\S\2 LV mass(C)s 332.8 grams LV mass(C)sI 115.3 grams/m\S\2 SV(Teich) 31.6 ml SI(Teich) 11.0 ml/m\S\2 SV(cubed) 38.7 ml SI(cubed) 13.4 ml/m\S\2 LVOT diam 1.9 cm LVOT area 2.7 cm\S\2 LVAd ap4 26.2 cm\S\2 LVLd ap4 7.1 cm EDV(MOD-sp4) 84.2 ml EDV(sp4-el) 82.6 ml LVAs ap4 18.7 cm\S\2 LVLs ap4 5.8 cm ESV(MOD-sp4) 50.0 ml ESV(sp4-el) 51.0 ml EF(MOD-sp4) 40.6 % EF(sp4-el) 38.3 % LVAd ap2 16.5 cm\S\2 LVLd ap2 6.2 cm EDV(MOD-sp2) 35.8 ml EDV(sp2-el) 37.6 ml LVAs ap2 12.5 cm\S\2 LVLs ap2 5.1 cm ESV(MOD-sp2) 24.7 ml ESV(sp2-el) 25.9 ml EF(MOD-sp2) 31.2 % EF(sp2-el) 31.0 % LVLd %diff -14.21 % EDV(MOD-bp) 53.3 ml LVLs %diff -13.70 % ESV(MOD-bp) 35.8 ml EF(MOD-bp) 32.8 % SV(MOD-sp4) 34.2 ml SI(MOD-sp4) 11.8 ml/m\S\2 SV(MOD-sp2) 11.2 ml SI(MOD-sp2) 3.9 ml/m\S\2 SV(MOD-bp) 17.5 ml SI(MOD-bp) 6.1 ml/m\S\2 SV(sp4-el) 31.6 ml SI(sp4-el) 10.9 ml/m\S\2 SV(sp2-el) 11.6 ml SI(sp2-el) 4.0 ml/m\S\2 Doppler Measurements and Calculations Ao V2 max 85.6 cm/sec Ao max PG 2.9 mmHg Ao max PG (full) 1.9 mmHg LENNY(V,A) 1.6 cm\S\2 LENNY(V,D) 1.6 cm\S\2 LV V1 max PG 10 mmHg LV V1 max 49.9 cm/sec TR max jamee 345.0 cm/sec
--- NOTE | 2017-05-05 14:32 | Pulmonology Progress Note ---
Pulmonary Progress Note Date of Service May 05, 2017. Attending Dr. Malone Subjective Peak flow completed this AM - 400mL with excellent effort. Overnight oximetry report reviewed as well. Noted 175 events over night. 135 events 85-89% and 17 events <85%. Patient overall is feeling well today other than when he is exerting himself. He is not SOB at rest but is SOB with almost any exertion. Repeat echocardiogram completed and pending. Right heart catheterization has not been completed. Objective VS reviewed: SaO2 on room air while awake 93-96% HR 74 RR18-20 BP down to 96/71 this morning but stable EKG this morning- NSR, possible LAE, possible RV hypertrophy, incomplete RBBB General: Patient is awake, alert, cooperative, and in no acute distress. Obese Head: Normocephalic, Atraumatic. ENT: PERRLA, No discharge, EOMI, Sclera normal Neck: Normal ROM. Trachea midline. No stridor Respiratory: No adventitious sounds heard on exam. Normal breath sounds. No respiratory distress. No accessory muscle use. Cardiovascular: Regular rate and rhythm. No murmur appreciate. Normal S1/S2. Abdomen: Nontender to palpation. Normal bowel sounds hear throughout. No guarding. Abdomen is soft and nontender Back: Normal inspection. Extremities: Mild edema B/L LE. Normal ROM Neuro: Alert, Oriented x 3. CN II-XII grossly intact. Sensation and motor function grossly intact. Psych: Mood and affect are normal. Assessment & Plan Dyspnea on Exertion Hx Asthma- no acute exacerbation 1. Dyspnea on exertion: Echo pending. Dr. Jones following. Recommend right heart catheterization to further asses possible diastolic dysfunction. 2. Asthma: Does not appear to have acute exacerbation- continue at home Advair as scheduled and Proventil PRN 3. Sleep apnea: Many overnight events noted on oximetry. Recommend trial of CPAP tonight starting at 10. Patient will need a sleep study completed as outpatient upon discharge to further assess. Patient was seen examined and plan agreed upon. Data Medications: Current Inpatient Medications Medications (Trade) Dose Ordered Sig/Joon Route Start Time Stop Time Status Last Admin Dose Admin Heparin Sodium (Porcine) (Heparin Sq 5000 Unit/0.5ml) 5,000 unit Q8 SQ 05/04/17 14:00 06/03/17 13:59 05/05/17 05:41 5,000 UNIT Acetaminophen (Tylenol Tab) 650 mg Q4H PRN PO 05/04/17 11:45 06/03/17 11:44 Ondansetron HCl (Zofran Inj) 4 mg Q6H PRN IV 05/04/17 11:45 06/03/17 11:44 Albuterol (Ventolin Hfa Inhaler) 2 puffs Q6H PRN INH 05/04/17 11:45 06/03/17 11:44 Aspirin (Ecotrin Tab) 81 mg QAM PO 05/05/17 09:00 06/04/17 08:59 05/05/17 08:17 81 MG Atorvastatin Calcium (Lipitor Tab) 20 mg DAILY PO 05/05/17 09:00 06/04/17 08:59 05/05/17 08:17 20 MG Salmeterol Xinafoate/ Fluticasone (Advair Diskus 500/50 Inh) 1 puff BID INH 05/04/17 21:00 06/03/17 20:59 05/05/17 08:16 1 PUFF Lisinopril (Zestril Tab) 20 mg QAM PO 05/05/17 09:00 06/04/17 08:59 05/05/17 08:18 20 MG Furosemide 40 mg/ Syringe 4 ml @ 4 mls/min BID17 IV 05/04/17 17:00 06/03/17 16:59 05/05/17 08:17 4 MLS/MIN Vital Signs: Date Time Temp Pulse Resp B/P (MAP) Pulse Ox O2 Delivery O2 Flow Rate FiO2 05/05/17 11:05 36.6 74 18 96/71 (79) 96 05/05/17 08:29 Room Air 05/05/17 08:15 77 117/72 (87) 05/05/17 08:00 Room Air 05/05/17 07:34 36.7 76 20 101/69 (80) 93 05/05/17 05:55 88 16 92 Room Air 05/05/17 04:00 Room Air 05/05/17 03:40 36.8 79 20 107/70 (82) 97 Room Air 05/05/17 00:00 Room Air 05/04/17 23:49 36.5 77 20 102/73 (83) 95 Room Air 05/04/17 20:00 Room Air 05/04/17 19:37 36.5 81 20 110/68 (82) 96 Room Air 05/04/17 16:00 94 Room Air 05/04/17 15:49 36.4 76 20 98/64 (75) 94 Room Air 05/04/17 12:24 36.6 82 20 104/70 (81) 20 Room Air 98.0 05/04/17 12:04 73 20 103/64 97 05/04/17 11:58 77 Laboratory Results: Last 24 Hours Test 05/04/17 12:41 05/04/17 14:57 05/04/17 20:59 05/05/17 05:49 Arterial Blood pH 7.48 Arterial Blood Partial Pressure CO2 32 mmHg Arterial Blood Partial Pressure O2 73 mm/Hg Arterial Blood HCO3 23 mmol/L Arterial Blood Oxygen Saturation 94.3 % Arterial Blood Base Excess 0.5 mEq/L Arterial Blood Gas Delivery ROOM AIR Gregorio Test POS Total Creatine Kinase 154 U/L 177 U/L Creatine Kinase MB 1.9 ng/ml 1.8 ng/ml Creatine Kinase MB Ratio 1.2 1.0 Troponin I 0.016 ng/ml 0.018 ng/ml Sodium Level 140 mmol/L Potassium Level 4.1 mmol/L Chloride Level 104 mmol/L Carbon Dioxide Level 26 mmol/L Anion Gap 10.0 mmol/L Blood Urea Nitrogen 17 mg/dl Creatinine 1.39 mg/dl Est Creatinine Clear Calc Drug Dose 105.0 ml/min Estimated GFR () 67.1 Estimated GFR (Non- 57.9 BUN/Creatinine Ratio 12.5 Random Glucose 89 mg/dl Calcium Level 9.1 mg/dl
--- NOTE | 2017-05-05 14:58 | PROGRESS NOTE ---
DATE: 05/05/2017 FOLLOWUP VISIT HISTORY OF PRESENT ILLNESS: The patient is a 52-year-old male who has had asthma since a teenager, which has been very well controlled. Starting in March, he became increasingly short of breath and actually had a hospital admission here at [facility] where a diagnosis was made of diastolic heart failure. He was started on diuretics and discharged home. He has never felt well since being discharged. He has remained short of breath to the point where he cannot walk across the room without having to stop. The patient returned to the Emergency Department and was readmitted. He has evidence on his echocardiogram this admission of severe right heart failure with evidence of most likely longstanding pulmonary hypertension. I had the radiologist review of his CT from March once again. The findings would indicate that he has right heart enlargement as well as enlargement of his pulmonary arteries. This second review of his CT of the chest is negative for pulmonary emboli. Due to the above findings, I think the patient is best transferred to [facility] in [place] where the pulmonary hypertension clinic evaluate him and provide further treatment. I have discussed this with the patient and he is willing to proceed. OBJECTIVE: VITAL SIGNS: Blood pressure is 100/70, pulse is regular at 74. GENERAL: He is afebrile. HEENT: He is normocephalic. Pupils are equal and reactive to light. Extraocular muscles are intact bilaterally. NECK: The neck veins are flat. Carotids have good upstrokes bilaterally without bruits. Thyroid is nonpalpable. RESPIRATORY: Breath sounds equal bilaterally and clear to auscultation. CARDIOVASCULAR: Heart has a regular rhythm. Normal S1, S2. No S3, S4. No cardiac rubs or murmurs. GASTROINTESTINAL: Abdomen is soft, nontender without organomegaly. EXTREMITIES: Free of edema, digit clubbing, or cyanosis. NEUROLOGIC: Grossly intact. SKIN: Warm to touch. LYMPH NODES: Negative to palpation. IMPRESSION: 1. Primary pulmonary hypertension. 2. History of asthma. RECOMMENDATIONS: As outlined above, I believe the patient should be transferred to the pulmonary service at [facility] for workup of his pulmonary hypertension. I will make those arrangements.
--- NOTE | 2017-05-05 15:45 | Discharge Summary ---
Discharge Summary Date of Service May 05, 2017. Discharge Summary Admission Date: May 04, 2017 at 11:10 Discharge Date: May 05, 2017 Discharge Disposition: Acute care facility Principal Diagnosis: Severe Pulmonary Hypertension with Acute RV Failure Secondary Diagnoses/Problems: Please see H&P and Hospital Progress note Consultations: Pulmonary and Cardiology Admission Information HPI (per Admitting provider): Pt is 52yo M with hx HTN, hyperlipidemia, asthma, psoriasis and in Mar 2017 dx with CHF presents with c/o increased SOB. Pt states previously was getting SOB with walking approx 10 steps. Over past 2 weeks with SOB with walking 5 steps and feels lightheaded. He states if he stops and rests then the lightheadedness resolves and after approx 1-2 minutes the SOB resolves. Pt was on HCTZ and then on 04/24/17 he had messaged his PCP and HCTZ was d/c and started on Lasix 20mg daily. Pt states when started this he felt lightheaded with standing, but that resolved after a couple of days. Pt states he didn't feel that he was urinating any more and doesn't feel that helped his SOB any. He is unsure if he lost any weight over the past month. Pt reports that he self increased the lasix to 40mg once daily over the past 4-5 days. He also doesn't feel that helped any more with decreasing SOB and doesn't feel urinating more. Pt doesn't feel his SOB is related to asthma. Denies any wheezing. He has tried taking Ventolin inhaler 1- 2 times a day when he experiences the SOB without any relief. Pt states last week started with some rhinorrhea and intermittent dry cough which he reports rhinorrhea resolved and cough almost resolved. Denies noticing any lower extremity edema. Denies syncopal episode. Denies claudication symptoms. Denies hx stress test or cardiac cath in past. Denies fever/chills, diaphoresis, N/V/D/ C, CHANDRA, vision changes, neck pain, CP, orthopnea, palpitations, sore throat, choking, otalgia, abdominal pain, paresthesias, weakness, extremity weakness, urinary symptoms. Denies any changes with rashes or his psoriasis. Seen in ER today and had normal WBC, BNP: 1962, negative Troponin. Normal TSH. Single view CXR showed cardiomegaly was limited study. EKG NSR with incomplete RBBB, no significant change since 04/02/17. BP initially 114/70 and after Lasix 40mg IV was 91/68. O2 sats 89-95% on room air. Pulse: 74-93. ER physician contacted cardiology - Dr Jones who recommended pt be admitted for further evaluation. Pt was admitted on 04/01/17 for SOB and dx with CHF. BNP was 1971 on previous admission on 04/01/17. ECHO at that time was limited study with grossly normal valves, grossly normal LVEF, grossly normal cardiac chamber size, very poor acoustic windows. Had CT angio showed no PE's. He was dx home on HCTZ 25mg daily at that time. Past Medical/Surgical History Medical Problems: (1) Asthma Status: Chronic (2) Dyslipidemia Status: Chronic (3) Hypertension Status: Chronic (4) Obesity, morbid, BMI 40.0-49.9 Status: Chronic (5) Psoriasis Status: Chronic Surgical Problems: (1) No history of previous surgery Status: Chronic Family History FH: cancer FATHER (lung CA) FH: diabetes mellitus MOTHER FH: hypertension FH: lung disease Social History Smoking Status: Never Smoker Smokeless Tobacco Use: No Alcohol Use: occasionally Drug Use: none Marital Status: single Occupational Status: employed Multi-Drug Resistant Organisms History of MDRO: No Allergies Coded Allergies: No Known Allergies (Unverified , 05/04/17) Home Medications Scheduled Aspirin (Aspirin Ec), 81 MG PO QAM Atorvastatin (Lipitor), 20 MG PO DAILY Fluticasone Prop/Salmeterol (Advair Diskus 500-50 Mcg/Dose), 1 INHA INH BID Furosemide (Lasix), 1 TAB PO DAILY Lisinopril (Prinivil), 20 MG PO QAM Scheduled PRN Albuterol Hfa (Ventolin Hfa), 1-2 PUFFS INH Q6H PRN for Shortness of Breath Review of Systems See HPI for pertinent positives & negatives. A total of 10 systems reviewed and were otherwise negative Physical Exam Vital Signs Date Time Temp Pulse Resp B/P (MAP) Pulse Ox O2 Delivery O2 Flow Rate FiO2 05/04/17 10:58 74 20 91/68 95 Room Air 05/04/17 09:39 84 22 112/71 93 Room Air 05/04/17 08:43 93 Room Air 05/04/17 08:43 85 05/04/17 08:40 36.7 93 22 114/70 89 Room Air General Appearance: no apparent distress, + obese Head: normocephalic, atraumatic Eyes: normal inspection, PERRL, EOMI ENT: normal ENT inspection, hearing grossly normal, TMs normal, pharynx normal Neck: supple, no adenopathy, no JVD, trachea midline Respiratory/Chest: lungs clear, normal breath sounds, no respiratory distress, no accessory muscle use Cardiovascular: regular rate, rhythm, no murmur Abdomen/GI: normal bowel sounds, non tender, soft, + pertinent finding (softly distended secondary to adipose tissue) Extremities/Musculoskelatal: normal capillary refill, no pedal edema, normal range of motion, non-tender Neurologic/Psych: no motor/sensory deficits, alert, normal mood/affect, oriented x 3 Skin: + rash (+erythematous plaques to bilateral lower legs, +excoriations and erythematous dry patches to back) Diagnostics Laboratory Results Results Past 24 Hours Test 05/04/17 09:00 Range/Units White Blood Count 10.51 4.8-10.8 K/uL Red Blood Count 5.57 4.7-6.1 M/uL Hemoglobin 17.4 14.0-18.0 g/dL Hematocrit 49.5 42-52 % Mean Corpuscular Volume 88.9 80-100 fL Mean Corpuscular Hemoglobin 31.2 25-34 pg Mean Corpuscular Hemoglobin Concent 35.2 32-36 g/dl Platelet Count 213 130-400 K/uL Mean Platelet Volume 10.9 7.4-10.4 fL Neutrophils (%) (Auto) 53.6 % Lymphocytes (%) (Auto) 37.0 % Monocytes (%) (Auto) 5.9 % Eosinophils (%) (Auto) 2.8 % Basophils (%) (Auto) 0.6 % Neutrophils # (Auto) 5.64 1.4-6.5 K/uL Lymphocytes # (Auto) 3.89 1.2-3.4 K/uL Monocytes # (Auto) 0.62 0.11-0.59 K/uL Eosinophils # (Auto) 0.29 0-0.5 K/uL Basophils # (Auto) 0.06 0-0.2 K/uL RDW Standard Deviation 45.6 36.4-46.3 fL RDW Coefficient of Variation 14.1 11.5-14.5 % Immature Granulocyte % (Auto) 0.1 % Immature Granulocyte # (Auto) 0.01 0.00-0.02 K/uL Prothrombin Time 11.3 9.0-12.0 SECONDS Prothromb Time International Ratio 1.1 0.9-1.1 Activated Partial Thromboplast Time 26.6 21.0-31.0 SECONDS Partial Thromboplastin Ratio 1.0 Sodium Level 140 136-145 mmol/L Potassium Level 4.1 3.5-5.1 mmol/L Chloride Level 105 98-107 mmol/L Carbon Dioxide Level 27 21-32 mmol/L Anion Gap 8.0 3-11 mmol/L Blood Urea Nitrogen 16 7-18 mg/dl Creatinine 1.36 0.60-1.40 mg/dl Est Creatinine Clear Calc Drug Dose 109.3 ml/min Estimated GFR () 68.8 Estimated GFR (Non- 59.4 BUN/Creatinine Ratio 11.7 10-20 Random Glucose 99 70-99 mg/dl Calcium Level 9.0 8.5-10.1 mg/dl Magnesium Level 2.2 1.8-2.4 mg/dl Total Bilirubin 1.2 0.2-1 mg/dl Aspartate Amino Transf (AST/SGOT) 14 15-37 U/L Alanine Aminotransferase (ALT/SGPT) 24 12-78 U/L Alkaline Phosphatase 65 45-117 U/L Troponin I 0.016 0-0.045 ng/ml Pro-B-Type Natriuretic Peptide 1962 0-900 pg/ml Total Protein 7.0 6.4-8.2 gm/dl Albumin 3.9 3.4-5.0 gm/dl Globulin 3.1 2.5-4.0 gm/dl Albumin/Globulin Ratio 1.3 0.9-2 Thyroid Stimulating Hormone (TSH) 1.590 0.300-4.500 uIu/ml Diagnostic Radiology CXR: IMPRESSION: Cardiomegaly with no acute cardiopulmonary abnormality. EKG EKG Confirmed By: LONNIE RASHID Normal sinus rhythm Possible Left atrial enlargement Incomplete right bundle branch block Possible Right ventricular hypertrophy Inferior infarct (cited on or before 01-APR-2017) Possible Anterolateral infarct (cited on or before 01-APR-2017) Abnormal ECG When compared with ECG of 02-APR-2017 07:06, No significant change was found ... Impression Assessment and Plan 52 y/o M with hx asthma, HTN, hyperlipidemia, psoriasis, recent dx CHF with admission in 03/2017, presents with increased SOB with exertion of 5 steps with associated lightheaded sensation. SOB/ HYPOXIA Acute on Chronic Diastolic CHF vs obesity hypoventilation -Will order two view CXR as single view was limited -Will check orthostatics with pt describing lightheadedness -Standing daily weights -Fluid restriction 2L -Lasix 40mg IV BID today -ABG -Nocturnal O2 ordered plus daytime O2 per protocol prn -Cardiology consult -Pulmonology consult -BMP in am -Consider out pt sleep study to r/o Sleep apnea -Plan on 2 step and pulse ox overnight studies prior to discharge to consider if pt requires home O2 HTN: -Continue Lisinopril HYPERLIPIDEMIA -Continue Lipitor - 04/02/17 lipid panel: Total cholesterol: 97, LDL: 44, HDL: 36 ASTHMA: -Continue Advair BID and Albuterol inhaler every 4-6 hrs prn SOB/wheezing -Cannot find results of PFTs in past. Consider PFT's. Had HgbA1c of 5.6 in 03/2017 DVT PROPHYLAXIS - Heparin SQ DISPOSITION -admit tele - Full Code as per discussion with pt -Follows with Dr Zendejas for routine care Pt was seen with Dr Olvera Level of Care Telemetry Resuscitation Status FULL RESUSCITATION VTE Prophylaxis VTE Risk Assessment Done? Y/N: Yes Risk Level: Moderate Given or contraindicated: Unfractionated heparin SQ Note ATTENDING ADDENDUM Record reviewed. Patient interviewed and examined in his room. Care coordinated with Isis Jones PA-C. Please refer to her documentation for patient's history. Briefly, 52 YO male experiencing progressive dyspnea with exertion. History of asthma. 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 Hospitalized in March of this year. RI and PE ruled out. Pro-BNP elevated. Echo was limited, but demonstrated normal LV wall motion and function, no apparent hemodynamic valvular disease. Symptoms improved with diuresis. Now with worsening VILLAFANA after walking only 5 steps. No fever, cough, wheezing, chest pain. EXAM: General- no acute distress VS- as noted HEENT- anicteric Neck- neck veins difficult to assess due to body habitus Lungs- clear to auscultation Heart- RRR, no murmur, gallop, or rub appreciated Abdomen- obese, soft, nontender Extremities- 1+ pretibial edema, no calf tenderness Neuro- alert DATA: Lab studies as noted. CXR- cardiomegaly, no infiltrates, effusions, CHF. EKG performed at 09:08 reviewed and demonstrated NSR at 76 / minute, incomplete RBBB, poor R-wave progression. . ASSESSMENT AND PLAN: Dyspnea on exertion, mechanism uncertain. History of asthma, but no apparent exacerbation. BMI 48. Consider obstructive sleep apnea and / or obesity hypoventilation syndrome. No pulmonary embolism per CTA last month. Echo showed normal LVEF. Dyspnea may be due to either cardiac or pulmonary etiologies. Consult Cardiology and Pulmonary Medicine. Please refer to EMERALD Milner's documentation for discussion of other issues. David Olvera MD . Additional Copies To Bill Zendejas D.O. <Electronically signed by Isis Milner PA-C> <Electronically signed by David Olvera M.D.> Physical Exam (per Admitting): General Appearance: no apparent distress, + obese Head: normocephalic, atraumatic Eyes: normal inspection, PERRL, EOMI ENT: normal ENT inspection, hearing grossly normal, TMs normal, pharynx normal Neck: supple, no adenopathy, no JVD, trachea midline Respiratory/Chest: lungs clear, normal breath sounds, no respiratory distress, no accessory muscle use Cardiovascular: regular rate, rhythm, no murmur Abdomen/GI: normal bowel sounds, non tender, soft, + pertinent finding ( softly distended secondary to adipose tissue) Extremities/Musculoskelatal: normal capillary refill, no pedal edema, normal range of motion, non-tender Neurologic/Psych: no motor/sensory deficits, alert, normal mood/affect, oriented x 3 Skin: + rash (+erythematous plaques to bilateral lower legs, +excoriations and erythematous dry patches to back) Hospital Course 52 y/o M with hx asthma as a child, HTN, hyperlipidemia, psoriasis, recent dx CHF with admission in 03/2017, presents with increased SOB with exertion of 5 steps with associated lightheaded sensation. SOB/ HYPOXIA Acute on Chronic Diastolic CHF vs obesity hypoventilation syndrome Has been on Lasix 40mg BID IV,Fluid restriction and daily weight Nocturnal O2 ordered plus daytime O2 per protocol prn Cardiology consult-appreciate input May need Cardiac Cath Appreciate Pulmonology consult -advised Cardiac cath Nocturnal Pulse Oximetry dose Consider out pt sleep study to r/o Sleep apnea Plan on 2 step and pulse ox overnight studies prior to discharge to consider if pt requires home O2 Clinically a little better today ECHO:: * There is moderate concentric left ventricular hypertrophy. * The left ventricular ejection fraction is grossly normal. * Flattened septum is consistent with RV pressure overload. * The right ventricular systolic function is severely reduced. * The left atrial size is normal. * The right atrium is severely dilated. * Severe pulmonary hypertension is present. Has Severe Pulmonary Hypertension (likely secondary to Sleep Apnea-not diagnosed yet) with Acute RV failure He will be transferred to [place] under the care of Dr Soni HTN: -Continue Lisinopril HYPERLIPIDEMIA -Continue Lipitor - 04/02/17 lipid panel: Total cholesterol: 97, LDL: 44, HDL: 36 ASTHMA: -Continue Advair BID and Albuterol inhaler every 4-6 hrs prn SOB/wheezing -Cannot find results of PFTs in past. Consider PFT's. -Clinically not in any exacerbation now -continue supportive measures Had HgbA1c of 5.6 in 03/2017 DVT PROPHYLAXIS - Heparin SQ DISPOSITION -admit tele - Full Code as per discussion with pt -Follows with Dr Zendejas for routine care Total time spent on discharge = 35 minutes This includes examination of the patient, discharge planning, medication reconciliation, and communication with other providers. Discharge Instructions The patient was transferred to [facility] [place] and all in patient medications were continued Additional Copies To Bill Zendejas D.O.
--- NOTE | 2017-05-05 16:24 | Discharge Instructions ---
Discharge Instructions Date of Service May 05, 2017. Admission Reason for Admission: Chf,Hypoxia Discharge Discharge Diagnosis / Problem: Severe Pulmonary HTN,Acute RV failure.Asthma Discharge Goals Goal(s): Prevent Disease Progression Activity Recommendations Activity Limitations: as noted below (As per facility) . Instructions / Follow-Up Instructions / Follow-Up Please make an appt with your PCP within 7 days of discharge Current Hospital Diet Patient's current hospital diet: AHA Diet (Heart Healthy) Discharge Diet Recommended Diet: AHA Diet (Heart Healthy), Low Sodium Diet (2gm Na) Fluid Restriction: 2000 ml (8 cups) Pending Studies Studies pending at discharge: no Laboratory Results Hemoglobin A1c Test 04/02/17 03:05 Range/Units Estimated Average Glucose 114 mg/dl Hemoglobin A1c 5.6 4.5-5.6 % Lipid Panel Test 04/02/17 03:05 Range/Units Triglycerides Level 87 0-150 mg/dl Cholesterol Level 97 0-200 mg/dl HDL Cholesterol 36 mg/dl Cholesterol/HDL Ratio 2.7 LDL Cholesterol, Calculated 44 mg/dl Medical Emergencies . Who to Call and When: Medical Emergencies: If at any time you feel your situation is an emergency, please call 911 immediately. . Non-Emergent Contact Non-Emergency issues call your: Primary Care Provider . Past History Medical & Surgical History: (1) CHF (congestive heart failure) (2) Asthma (3) Hypertension (4) Dyslipidemia (5) Pneumonia (6) Psoriasis (7) Shortness of breath (8) Hypoxia (9) Obesity, morbid, BMI 40.0-49.9 (10) No history of previous surgery . "Provider Documentation" section prepared by Sheron Stone. . VTE Core Measure Inpt VTE Proph given/why not?: Unfractionated heparin SQ
== END 2017-05-05 16:45 | disposition short-term general hospital (02) | DRG 292 ==
LOC: C.EDB 08:24 → C.2T 11:10 → ENRESERV 11:57
PROVIDERS: ADMIT Hospitalist; ATTEND Internal Medicine
DX: I50.33 Acute on chronic diastolic (congestive) heart failure (principal); Z68.42 Body mass index [BMI] 45.0-49.9, adult; E66.2 Morbid (severe) obesity with alveolar hypoventilation; I27.0 Primary pulmonary hypertension; R09.02 Hypoxemia; I11.0 Hypertensive heart disease with heart failure; J45.909 Unspecified asthma, uncomplicated; E78.5 Hyperlipidemia, unspecified; Z51.81 Encounter for therapeutic drug level monitoring; Z79.899 Other long term (current) drug therapy; Z79.82 Long term (current) use of aspirin; Z87.01 Personal history of pneumonia (recurrent); Z82.49 Family history of ischemic heart disease and other diseases of the circulatory system; Z83.3 Family history of diabetes mellitus; Z80.1 Family history of malignant neoplasm of trachea, bronchus and lung

== ENCOUNTER → 2017-06-18 | Outpatient (CLI) | payer OTHER ==
[~2017-06-18] MED LIST changes: +ADVIN50050 INH; +ASPI81TA28 PO; +ATOR-22 PO; +FURO20TA PO; -HYDR25TA4 PO; +LISI20TA3 PO; +VNTHFA/IN INH
--- NOTE | 2017-06-18 09:03 | DIAGNOSTIC IMAGING REPORT ---
CHEST 2 VIEWS ROUTINE CLINICAL HISTORY: 52 years-old Male presenting with PULMONARY HTN. TECHNIQUE: PA and lateral views of the chest were obtained. COMPARISON: 05/04/2017. FINDINGS: Cardiac silhouette remains enlarged. Prominence of the bilateral maru likely vascular. Persistent blunting of the right costophrenic angle consistent with small right pleural effusion. Lungs otherwise clear. Osseous structures normal. Upper abdomen normal. IMPRESSION: 1. Persistent prominence of the maru which likely represents prominent vasculature. This could be consistent with the given diagnosis of pulmonary hypertension. 2. Cardiomegaly. 3. Persistent small right pleural effusion. Electronically signed by: Kaveh Greco M.D. 06/18/2017 9:01 AM Dictated Date/Time: 06/18/2017 9:00 AM
--- NOTE | 2017-06-18 10:11 | DIAGNOSTIC IMAGING REPORT ---
NUCLEAR PULMONARY VENTILATION/PERFUSION SCAN CLINICAL HISTORY: Pulmonary artery hypertension. COMPARISON STUDY: Chest radiographs dated 06/18/2017. Chest CT dated 04/01/2017. TECHNIQUE: Initially, ventilation images of both lungs are obtained following the inhalation of 33 mCi of aerosolized technetium 99m DTPA. Subsequently, perfusion images of both lungs were obtained following the IV administration of 5.4 mCi of technetium 99m MAA. Ventilation and perfusion images were acquired in the anterior, posterior, and oblique projections. FINDINGS: A chest x-ray performed the same day shows cardiomegaly without evidence of congestive failure. Enlargement of the main pulmonary arteries indicates pulmonary artery hypertension. No airspace consolidation or pleural effusion is identified. The ventilation of both lungs is normal and symmetric. No perfusion defects are identified on the perfusion imaging. IMPRESSION: Findings are considered low probability for pulmonary embolus. Electronically signed by: Savage Del Cid M.D. 06/18/2017 10:10 AM Dictated Date/Time: 06/18/2017 10:08 AM
== END | disposition home or self-care (01) ==
LOC: C.NUCL 08:23
PROVIDERS: ATTEND Nurse Practitioner Adult Health
DX: I27.20 Pulmonary hypertension, unspecified (principal); I27.29 Other secondary pulmonary hypertension; G47.33 Obstructive sleep apnea (adult) (pediatric); E66.01 Morbid (severe) obesity due to excess calories; I51.7 Cardiomegaly; J90 Pleural effusion, not elsewhere classified

== ENCOUNTER 2017-10-10 00:29 | Inpatient (IN) | payer OTHER ==
[2017-10-10] VITALS (10 sets, daily range): BP systolic 102–121; BP diastolic 68–81; PULSE 79–100; TEMP 36.5–37; O2SAT 90–95; Ht 190.5 cm; Wt 157.5 kg
[~2017-10-10] VITALS: Ht 190.5 cm; Wt 157.5 kg
[2017-10-10] MEDS ORDERED: SODIUM CHLORIDE 0.9% 500ML 500 ML IV STA (00:43)
--- NOTE | 2017-10-10 00:51 | EMERGENCY ROOM VISIT NOTE ---
History Report prepared by Andrea: Sarwat Forrest Under the Supervision of: Dr. Srinivasan Guevara D.O. First contact with patient: 00:33 Chief Complaint: FALL Stated Complaint: FALL History of Present Illness The patient is a 52 year old male who presents to the Emergency Room with complaints of a resolved syncopal episode that occurred prior to arrival. The patient states that he has a history of pulmonary hypertension that has caused him to experience syncopal episodes due to lightheadedness in the past. He reports that today he was at the top of the stairs when he became lightheaded. The patient states that he then experienced a syncopal episode and woke up at the bottom of the stairs. He reports that he believes his syncopal episode was a short period. The patient states that since the incident, he has been experiencing chest pain whenever he stands up. He denies that his chest is in pain when he presses on the area or is laying down. The patient denies alcohol or tobacco use, neck pain, new medications, calf pain, and increase in lower extremity swelling, abdominal pain, back pain, and head pain. He reports that he sees Dr. Diaz and goes to pulmonary rehab for his history of pulmonary rehab. 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 A total of 10 systems reviewed and were otherwise negative. Past Medical & Surgical Medical Problems: (1) Asthma (2) CHF (congestive heart failure) (3) Dyslipidemia (4) Hypertension (5) Obesity, morbid, BMI 40.0-49.9 (6) Pneumonia (7) Psoriasis Surgical Problems: (1) No history of previous surgery Family History FH: cancer FATHER (lung CA) FH: diabetes mellitus MOTHER FH: hypertension FH: lung disease Social History Smoking Status: Never Smoker Alcohol Use: occasionally Drug Use: none Marital Status: single Housing Status: lives with friends Occupation Status: employed Current/Historical Medications Scheduled Aspirin (Aspirin Ec), 81 MG PO QAM Atorvastatin (Lipitor), 20 MG PO DAILY Fluticasone Prop/Salmeterol (Advair Diskus 500-50 Mcg/Dose), 1 INHA INH BID Furosemide (Lasix), 1 TAB PO DAILY Lisinopril (Prinivil), 20 MG PO QAM Scheduled PRN Albuterol Hfa (Ventolin Hfa), 1-2 PUFFS INH Q6H PRN for Shortness of Breath Allergies Coded Allergies: No Known Allergies (Unverified , 05/04/17) Physical Exam Vital Signs Date Time Temp Pulse Resp B/P (MAP) Pulse Ox O2 Delivery O2 Flow Rate FiO2 10/10/17 00:55 85 18 122/78 89 112/73 99 103/68 10/10/17 00:47 Room Air 10/10/17 00:43 36.8 95 18 112/86 92 Room Air Physical Exam GENERAL: Patient is awake, alert, and in no acute distress. Patient is resting comfortably and showing no signs of anxiety EYES: The conjunctivae are clear. The pupils are round and reactive. EARS, NOSE, MOUTH AND THROAT: Hematoma over the left forehead, left cheek. There was clotted blood noted in the oropharynx. No acute epistaxis. NECK: The neck is nontender and supple. RESPIRATORY: Normal respiratory effort is noted there is no evidence of wheezing rhonchi or rales CARDIOVASCULAR: Regular rate and rhythm noted there no murmurs rubs or gallops normal S1 normal S2 GASTROINTESTINAL: The abdomen is soft. Bowel sounds are present in all quadrants. Abdomen is nontender MUSCULOSKELETAL/EXTREMITIES: There is no evidence of gross deformity full range of motion is noted in the hips and shoulders SKIN: Pedal edema bilaterally with venous stasis change. NEUROLOGIC: Patient is awake alert and oriented x3 strength is symmetric patellar reflexes are 2+ bilaterally Medical Decision & Procedures ER Provider Diagnostic Interpretation: Radiology results as stated below per my review and radiologist interpretation: CHEST X-RAY: Cardiomegaly with hilar prominence noted. No definite infiltrate. No free air. No change compared to 06/18/17 Preliminary Findings Only See Final Report For Complete Findings CT HEAD: No evidence of intracranial hemorrhage, mass, or shift in midline structure. Moderate cerebral volume loss. Possible calcified meningioma along the inner table of the left frontal bone. Scalp hematoma overlying the left frontal bone. No evidence of calvarial fracture. CT FACIAL: No evidence of facial fracture. Small mucoceles in the maxillary sinus. CT C SPINE: No evidence of fracture or subluxation. There is mild multilevel cervical spondylosis. Straightening of the cervical spine which may be related to patient positioning versus muscle spasm. Radiologist: Gavin Fowler DO Study ready at 01:21 and initial results transmitted at 01:31 Laboratory Results 10/10/17 01:00 Red Blood Count 5.24, Mean Corpuscular Volume 90.8, Mean Corpuscular Hemoglobin 33.2, Mean Corpuscular Hemoglobin Concent 36.6, Mean Platelet Volume 11.0, Neutrophils (%) (Auto) 64.3, Lymphocytes (%) (Auto) 27.6, Monocytes (%) (Auto) 6.3, Eosinophils (%) (Auto) 1.0, Basophils (%) (Auto) 0.6, Neutrophils # (Auto) 5.57, Lymphocytes # (Auto) 2.40, Monocytes # (Auto) 0.55, Eosinophils # (Auto) 0.09, Basophils # (Auto) 0.05 10/10/17 01:00 Test 10/10/17 01:00 10/10/17 02:18 White Blood Count 8.68 K/uL (4.8-10.8) Red Blood Count 5.24 M/uL (4.7-6.1) Hemoglobin 17.4 g/dL (14.0-18.0) Hematocrit 47.6 % (42-52) Mean Corpuscular Volume 90.8 fL (80-100) Mean Corpuscular Hemoglobin 33.2 pg (25-34) Mean Corpuscular Hemoglobin Concent 36.6 g/dl (32-36) Platelet Count 177 K/uL (130-400) Mean Platelet Volume 11.0 fL (7.4-10.4) Neutrophils (%) (Auto) 64.3 % Lymphocytes (%) (Auto) 27.6 % Monocytes (%) (Auto) 6.3 % Eosinophils (%) (Auto) 1.0 % Basophils (%) (Auto) 0.6 % Neutrophils # (Auto) 5.57 K/uL (1.4-6.5) Lymphocytes # (Auto) 2.40 K/uL (1.2-3.4) Monocytes # (Auto) 0.55 K/uL (0.11-0.59) Eosinophils # (Auto) 0.09 K/uL (0-0.5) Basophils # (Auto) 0.05 K/uL (0-0.2) RDW Standard Deviation 51.5 fL (36.4-46.3) RDW Coefficient of Variation 15.7 % (11.5-14.5) Immature Granulocyte % (Auto) 0.2 % Immature Granulocyte # (Auto) 0.02 K/uL (0.00-0.02) Prothrombin Time 11.8 SECONDS (9.0-12.0) Prothromb Time International Ratio 1.1 (0.9-1.1) Activated Partial Thromboplast Time 26.7 SECONDS (21.0-31.0) Partial Thromboplastin Ratio 1.0 Anion Gap 13.0 mmol/L (3-11) Est Creatinine Clear Calc Drug Dose 91.4 ml/min Estimated GFR () 62.2 Estimated GFR (Non- 53.6 BUN/Creatinine Ratio 12.6 (10-20) Calcium Level 9.0 mg/dl (8.5-10.1) Total Bilirubin 2.2 mg/dl (0.2-1) Direct Bilirubin 0.7 mg/dl (0-0.2) Aspartate Amino Transf (AST/SGOT) 25 U/L (15-37) Alanine Aminotransferase (ALT/SGPT) 26 U/L (12-78) Alkaline Phosphatase 70 U/L (45-117) Total Creatine Kinase 104 U/L (39-308) Creatine Kinase MB 2.4 ng/ml (0.5-3.6) Creatine Kinase MB Ratio 2.3 (0-3.0) Troponin I 0.037 ng/ml (0-0.045) Pro-B-Type Natriuretic Peptide 4368 pg/ml (0-900) Total Protein 6.8 gm/dl (6.4-8.2) Albumin 3.7 gm/dl (3.4-5.0) Thyroid Stimulating Hormone (TSH) 3.440 uIu/ml (0.300-4.500) Laboratory results per my review. Medications Administered Medications (Trade) Dose Ordered Sig/Joon Route Start Time Stop Time Status Last Admin Dose Admin Sodium Chloride 500 ml @ 999 mls/hr Q31M STAT IV 10/10/17 00:43 10/10/17 01:13 DC 10/10/17 01:00 999 MLS/HR ECG Per My Interpretation Indication: syncope Rate (beats per minute): 85 Rhythm: normal sinus Findings: RBBB, other (Left atrial enlargement is suggested) Comparison ECG Date: 05/05/17 Change: no significant change ED Course 0038: The patient was evaluated in room B07. A complete history and physical examination were performed. 0043: Ordered Sodium Chloride 500 ml @ 999 mls/hr IV. 0151: Ordered Potassium Chloride 10 meq IV. 0157: I discussed the patients case with Linda Dan. He understands the patients condition and agrees to accept the patient. The patient will be further evaluated. Medical Decision Prior records/ancillary studies reviewed. Triage Nursing notes reviewed. The patient's history was concerning for syncope. Differential diagnosis: Etiologies such as vasovagal event, infection, hypoglycemia, electrolyte abnormalities, cardiac sources, intracerebral event, toxicologic, neurologic, as well as others were entertained. The patient is a 52-year-old male who presented to the emergency department after a syncopal episode. The patient states that he has been having dizziness and near syncope over the last few days. He does have a history of pulmonary hypertension and currently does take Lasix. The patient was found to have orthostatic hypotension on vital sign monitoring. The patient was treated with a small fluid bolus. I discussed patient's laboratory and radiographic studies with him. I also discussed the possible causes of his syncope. Given the patient's past medical history I do feel this could be related to a life- threatening cause of syncope. For this reason I discussed his case with the on- call [facility]. They have agreed to evaluate the patient in the emergency department for further management and disposition. Medication Reconcilliation Current Medication List: was personally reviewed by me Blood Pressure Screening Patient's blood pressure: Normal blood pressure Consults Time Called: 0153 Consulting Physician: Linda Dan Returned Call: [phone] I discussed the patients case with Linda Dan. He understands the patients condition and agrees to accept the patient. The patient will be further evaluated. Impression Primary Impression: Syncope Additional Impressions: Chest pain Facial contusion Head injury Hypokalemia Orthostatic hypotension Scribe Attestation The scribe's documentation has been prepared under my direction and personally reviewed by me in its entirety. I confirm that the note above accurately reflects all work, treatment, procedures, and medical decision making performed by me. Departure Information Dispostion Being Evaluated By Hospitalist Referrals Bill Zendejas D.O. (PCP) Patient Instructions My [facility] Problem Qualifiers Primary Impression: Syncope Syncope type: unspecified Qualified Codes: R55 - Syncope and collapse Additional Impressions: Chest pain Chest pain type: unspecified Qualified Codes: R07.9 - Chest pain, unspecified Facial contusion Encounter type: initial encounter Qualified Codes: S00.83XA - Contusion of other part of head, initial encounter Head injury Encounter type: initial encounter Qualified Codes: S09.90XA - Unspecified injury of head, initial encounter
[2017-10-10 01:13] LABS: BASO % 0.6 %; BASO ABS # 0.05 K/uL (0-0.2); EOS ABS # 0.09 K/uL (0-0.5); HEMATOCRIT 47.6 % (42-52); HEMOGLOBIN 17.4 g/dL (14.0-18.0); IG# 0.02 K/uL (0.00-0.02); LYMPH % 27.6 %; MEAN CELL VOLUME 90.8 fL (80-100); MEAN CORPUSCULAR HEMOGLOBIN 33.2 pg (25-34); MEAN CORPUSCULAR HGB CONC 36.6 g/dl (32-36); MONO % 6.3 %; MONO ABS # 0.55 K/uL (0.11-0.59); NEUT % 64.3 %; NEUT ABS # 5.57 K/uL (1.4-6.5); PLATELET COUNT 177 K/uL (130-400); RED CELL DISTRIBUTION WIDTH CV 15.7 % (11.5-14.5); RED CELL DISTRIBUTION WIDTH SD 51.5 fL (36.4-46.3); WHITE BLOOD COUNT 8.68 K/uL (4.8-10.8)
[2017-10-10 01:22] LABS: INR 1.1 (0.9-1.1); PTT PATIENT 26.7 SECONDS (21.0-31.0)
[2017-10-10 01:34] LABS: ALBUMIN 3.7 gm/dl (3.4-5.0); CREATININE 1.48 mg/dl (0.60-1.40); POTASSIUM 2.7 mmol/L (3.5-5.1)
[2017-10-10 01:45] LABS: CKMB 2.4 ng/ml (0.5-3.6); TOTAL PROTEIN 6.8 gm/dl (6.4-8.2)
[2017-10-10] MEDS ORDERED: POTASSIUM CHLORIDE 10 MEQ / 100ML WTR IV STA (01:51)
[2017-10-10] MEDS ORDERED: POTASSIUM CHLORIDE 20 MEQ TABCR PO STA (02:19)
[2017-10-10] MEDS ORDERED: ALBUTEROL HFA 8 GM INHALER INH PRN (02:30)
[2017-10-10] MEDS ORDERED: AMLO-110 PO (02:33)
--- NOTE | 2017-10-10 02:49 | History and Physical ---
History & Physical Date & Time of Service: Oct 10, 2017 at 02:35 Chief Complaint: FALL Primary Care Physician: Bill Zendejas D.O. History of Present Illness Source: patient 52 year old M with PMH of right heart failure and severe pulmonary hypertension which was last evaluated at [facility] in 04/2017, who was walking up the stairs when feeling lightheaded and fell down 9 steps. Patient believes that he may have loss consciousness for no more than 5 to 10 seconds because someone else a neighbor was present in the general area. Patient denies acute shortness of breath during that episode but notes that has has dyspnea on exertion that has been going on for months and worse when walking up the stairs. Patient denies chest pain or palpitations when he felt lightheaded and fell down. No preceding symptoms of aura or nausea or vomiting. Patient denies changes in usual urination or bowel movements. He takes Lasix 80 mg daily for right heart failure and pulmonary hypertension and was found to be hypokalemic in the ED with serum potassium to be 2.7. Patient received IV fluids and IV potassium by ED provider. Patient did arrive with head in dressing for minor injuries but no laceration repair needed and scans of head /face/ neck without fractures CT HEAD: No evidence of intracranial hemorrhage, mass, or shift in midline structure. Moderate cerebral volume loss. Possible calcified meningioma along the inner table of the left frontal bone. Scalp hematoma overlying the left frontal bone. No evidence of calvarial fracture. CT FACIAL: No evidence of facial fracture. Small mucoceles in the maxillary sinus. CT C SPINE: No evidence of fracture or subluxation. There is mild multilevel cervical spondylosis. Straightening of the cervical spine which may be related to patient positioning versus muscle spasm. Patient placed under observation on telemetry service by hospitalist medicine physician. Past Medical/Surgical History Medical Problems: (1) Asthma (2) CHF (congestive heart failure) (3) Dyslipidemia (4) Fluid overload (5) Hypertension (6) Hypoxia (7) Obesity, morbid, BMI 40.0-49.9 (8) Pneumonia (9) Psoriasis (10) Shortness of breath Surgical Problems: (1) No history of previous surgery Family History FH: cancer FATHER (lung CA) FH: diabetes mellitus MOTHER FH: hypertension FH: lung disease Social History Smoking Status: Never Smoker Drug Use: none Marital Status: single Occupational Status: employed Allergies Coded Allergies: No Known Allergies (Unverified , 05/04/17) Home Medications Scheduled Amlodipine (Norvasc), 2.5 MG PO DAILY Aspirin (Aspirin Ec), 81 MG PO QAM Atorvastatin (Lipitor), 20 MG PO DAILY Fluticasone Prop/Salmeterol (Advair Diskus 500-50 Mcg/Dose), 1 INHA INH BID Furosemide (Lasix), 1 TAB PO DAILY Scheduled PRN Albuterol Hfa (Ventolin Hfa), 1-2 PUFFS INH Q6H PRN for Shortness of Breath Review of Systems Constitutional: No fever, No chills Eyes: No worsening of vision, No eye pain ENT: No hearing loss, No nasal symptoms Respiratory: + shortness of breath (when climbing stairs or overexertion), + dyspnea on exertion (when climbing stairs or overexertion), No cough, No wheezing Cardiovascular: No edema, No palpitations Abdomen: No pain, No nausea, No vomiting, No diarrhea, No constipation Musculoskeletal: No joint pain, No muscle pain Genitourinary - Male: No dysuria Neurologic: No paralysis, No weakness, No numbness/tingling Endocrine: No fatigue Hematologic / Lymphatic: No abnormal bleeding/bruising Integumentary: No rash Physical Exam Vital Signs Date Time Temp Pulse Resp B/P (MAP) Pulse Ox O2 Delivery O2 Flow Rate FiO2 10/10/17 00:55 85 18 122/78 89 112/73 99 103/68 10/10/17 00:47 Room Air 10/10/17 00:43 36.8 95 18 112/86 92 Room Air General Appearance: no apparent distress, + obese Head: normocephalic, + pertinent finding (gauze dressing on the head) Eyes: normal inspection, EOMI, sclerae normal ENT: normal ENT inspection, hearing grossly normal, pharynx normal Neck: supple, no JVD, trachea midline Respiratory/Chest: chest non-tender, lungs clear, normal breath sounds, no respiratory distress, no accessory muscle use Cardiovascular: regular rate, rhythm, no edema, no JVD, normal peripheral pulses Abdomen/GI: normal bowel sounds, non tender, soft, no organomegaly, no pulsatile mass Back: normal inspection, no muscle spasm, normal range of motion Extremities/Musculoskelatal: normal inspection, no calf tenderness, normal capillary refill, no pedal edema, normal range of motion, non-tender Neurologic/Psych: environmental emergencies planner II-XII nml as tested, no motor/sensory deficits, alert, normal mood/affect, oriented x 3 Skin: warm/dry Diagnostics Laboratory Results Results Past 24 Hours Test 10/10/17 01:00 Range/Units White Blood Count 8.68 4.8-10.8 K/uL Red Blood Count 5.24 4.7-6.1 M/uL Hemoglobin 17.4 14.0-18.0 g/dL Hematocrit 47.6 42-52 % Mean Corpuscular Volume 90.8 80-100 fL Mean Corpuscular Hemoglobin 33.2 25-34 pg Mean Corpuscular Hemoglobin Concent 36.6 32-36 g/dl Platelet Count 177 130-400 K/uL Mean Platelet Volume 11.0 7.4-10.4 fL Neutrophils (%) (Auto) 64.3 % Lymphocytes (%) (Auto) 27.6 % Monocytes (%) (Auto) 6.3 % Eosinophils (%) (Auto) 1.0 % Basophils (%) (Auto) 0.6 % Neutrophils # (Auto) 5.57 1.4-6.5 K/uL Lymphocytes # (Auto) 2.40 1.2-3.4 K/uL Monocytes # (Auto) 0.55 0.11-0.59 K/uL Eosinophils # (Auto) 0.09 0-0.5 K/uL Basophils # (Auto) 0.05 0-0.2 K/uL RDW Standard Deviation 51.5 36.4-46.3 fL RDW Coefficient of Variation 15.7 11.5-14.5 % Immature Granulocyte % (Auto) 0.2 % Immature Granulocyte # (Auto) 0.02 0.00-0.02 K/uL Prothrombin Time 11.8 9.0-12.0 SECONDS Prothromb Time International Ratio 1.1 0.9-1.1 Activated Partial Thromboplast Time 26.7 21.0-31.0 SECONDS Partial Thromboplastin Ratio 1.0 Sodium Level 137 136-145 mmol/L Potassium Level 2.7 3.5-5.1 mmol/L Chloride Level 99 98-107 mmol/L Carbon Dioxide Level 25 21-32 mmol/L Anion Gap 13.0 3-11 mmol/L Blood Urea Nitrogen 19 7-18 mg/dl Creatinine 1.48 0.60-1.40 mg/dl Est Creatinine Clear Calc Drug Dose 91.4 ml/min Estimated GFR () 62.2 Estimated GFR (Non- 53.6 BUN/Creatinine Ratio 12.6 10-20 Random Glucose 99 70-99 mg/dl Calcium Level 9.0 8.5-10.1 mg/dl Magnesium Level 1.9 1.8-2.4 mg/dl Total Bilirubin 2.2 0.2-1 mg/dl Direct Bilirubin 0.7 0-0.2 mg/dl Aspartate Amino Transf (AST/SGOT) 25 15-37 U/L Alanine Aminotransferase (ALT/SGPT) 26 12-78 U/L Alkaline Phosphatase 70 45-117 U/L Total Creatine Kinase 104 39-308 U/L Creatine Kinase MB 2.4 0.5-3.6 ng/ml Creatine Kinase MB Ratio 2.3 0-3.0 Troponin I 0.037 0-0.045 ng/ml Pro-B-Type Natriuretic Peptide 4368 0-900 pg/ml Total Protein 6.8 6.4-8.2 gm/dl Albumin 3.7 3.4-5.0 gm/dl Thyroid Stimulating Hormone (TSH) 3.440 0.300-4.500 uIu/ml Impression Assessment and Plan Head trauma from syncope and falling down the stairs -scans of head /face/ neck without fractures Syncope -may be secondary to Lasix vs right heart failure vs pulmonary hypertension vs arrhythmia -Cardiac cath on 04/2017: The coronary arteries are angiographically normal.PA: 89/44, mean:61 mmHg, severe pulmonary hypertension -Echocardiogram on 04/2017 There is moderate concentric left ventricular hypertrophy. The left ventricular ejection fraction is grossly normal. Flattened septum is consistent with RV pressure overload. The right ventricular systolic function is severely reduced. The left atrial size is normal. The right atrium is severely dilated. Severe pulmonary hypertension is present -repeat echocardiogram ordered on this presentation -ultrasound carotid ordered -initial troponin negative -monitor on telemetry for arrhythmia -monitor blood pressure -cardiology consult requested Blood pressure -check orthostatic vital signs -continue home medication of low dose 2.5 mg amlodipine Hypokalemia likely from diuretic use -has been on 80 mg Lasix daily at home, is euvolemic, will hold this Lasix medication pending correction of electrolyte deficiencies and cardiology consult evaluation -10 meq potassium given in the ED as IV, 80 meq oral potassium ordered, recheck serum potassium -check serum magnesium level and ensure serum magnesium is 2 to allow for correction of the hypokalemia with potassium supplements History of asthma -no recent asthma attacks -continue home inhaler medications uses CPAP at home, continue CPAP Patient attends pulmonary rehabilitation for the pulmonary hypertension FULL code status emergency contact information Praveena Burger (patient's friend) [phone] Advanced Directives Existing Living Will: No Existing Power of Cinema Operator: No Resuscitation Status VTE Prophylaxis Will order VTE Prophylaxis: Yes
[2017-10-10] MEDS ORDERED: INFLUENZA VIRUS QUAD VACCINE 0.5 ML SYR IM. ONE (03:45)
[2017-10-10] MEDS ORDERED: INFLUENZA ADMINISTRATION CHARGE ONE (03:45)
[2017-10-10] MEDS ORDERED: IV FLUIDS COMPLETED PRN (03:45)
--- NOTE | 2017-10-10 06:23 | DIAGNOSTIC IMAGING REPORT ---
HEAD WITHOUT CONTRAST (CT) CT DOSE: HISTORY: Mental status change. Trauma. EVALUATE ALTERED MENTAL STATUS/WEAKNESS TECHNIQUE: Multiaxial CT images of the head were performed without the use of intravenous contrast. A dose lowering technique was utilized adhering to the principles of ALARA. Comparison: None. Findings: The paranasal sinuses and mastoid air cells are clear. The calvarium and skull base are intact. The ventricles and sulci are within normal limits. There is no mass, hematoma, midline shift, or acute infarct. Extracranial left soft tissue hematoma. Impression: No acute intracranial abnormality. Extracranial soft tissue hematoma The above report was generated using voice recognition software. It may contain grammatical, syntax or spelling errors. Electronically signed by: Dipak Wheat M.D. 10/10/2017 6:22 AM Dictated Date/Time: 10/10/2017 6:20 AM
--- NOTE | 2017-10-10 06:24 | DIAGNOSTIC IMAGING REPORT ---
FACIAL BONES-MXILLOFAC WITHOUT CT DOSE: HISTORY: Trauma. Pain. fall TECHNIQUE: Multiaxial CT images of the maxillofacial region were performed and reformatted in the coronal plane without the use of contrast. A dose lowering technique was utilized adhering to the principles of ALARA. COMPARISON: None. FINDINGS: The visualized cervical spine, skull base, pterygoid plates, nasal bones, lamina papyracea, orbital floors, mandible, and zygomatic arches are intact. No fractures. The orbits are unremarkable. Extracranial left prefrontal soft tissue edema IMPRESSION: Soft tissue edema. No acute bony abnormality. The above report was generated using voice recognition software. It may contain grammatical, syntax or spelling errors. Electronically signed by: Dipak Wheat M.D. 10/10/2017 6:23 AM Dictated Date/Time: 10/10/2017 6:22 AM
--- NOTE | 2017-10-10 06:27 | DIAGNOSTIC IMAGING REPORT ---
CERVICAL SPINE W/O CT DOSE: 1187.35 mGy.cm HISTORY: Trauma. Mental status change. faLL TECHNIQUE: Multiaxial CT images of the cervical spine were performed and reformatted in the sagittal and coronal plane without the use of contrast. A dose lowering technique was utilized adhering to the principles of ALARA. COMPARISON: None. FINDINGS: No fractures. No subluxation. Prevertebral soft tissues and the C1-C2 interval are intact. No pneumothorax. Mild degenerative disc change. Straightening of cervical curvature most likely secondary to muscular spasm. IMPRESSION: Muscle spasm. Mild degenerative disc change. No acute process. The above report was generated using voice recognition software. It may contain grammatical, syntax or spelling errors. Electronically signed by: Dipak Wheat M.D. 10/10/2017 6:26 AM Dictated Date/Time: 10/10/2017 6:25 AM
--- NOTE | 2017-10-10 06:28 | DIAGNOSTIC IMAGING REPORT ---
CHEST ONE VIEW PORTABLE CLINICAL HISTORY: EVALUATE ALTERED MENTAL STATUS/WEAKNESS dyspnea COMPARISON STUDY: 06/18/2017 FINDINGS: Mild cardiomegaly. Stable right hilar fullness. Lungs appear clear. Diaphragms are smooth. IMPRESSION: Chronic change. No acute process. The above report was generated using voice recognition software. It may contain grammatical, syntax or spelling errors. Electronically signed by: Dipak Wheat M.D. 10/10/2017 6:27 AM Dictated Date/Time: 10/10/2017 6:27 AM
--- NOTE | 2017-10-10 06:59 | DIAGNOSTIC IMAGING REPORT ---
CAROTID DOPPLER NECK ART HISTORY: Mental status change syncope COMPARISON: None. TECHNIQUE: Real-time, grayscale, and color Doppler sonography of the carotid arteries was performed. Imaging reviewed in the transverse and longitudinal planes. All measurements were calculated based on NASCET criteria. FINDINGS: Antegrade flow is seen in the bilateral vertebral arteries. The brachial pressures are hemodynamically similar. Moderate plaque formation bilaterally The peak systolic velocity within the right ICA is 33. The right systolic ratio is 0.6. The peak systolic velocity within the left ICA is 48. The left systolic ratio is 0.7. IMPRESSION: No hemodynamically significant stenosis seen within the carotid arteries. Mild atherosclerotic plaque formation. The above report was generated using voice recognition software. It may contain grammatical, syntax or spelling errors. Electronically signed by: Dipak Wheat M.D. 10/10/2017 6:58 AM Dictated Date/Time: 10/10/2017 6:57 AM
[2017-10-10] MEDS: ASPIRIN 81 MG ECTAB PO SCH (07:49)
[2017-10-10] MEDS: ATORVASTATIN 20 MG TAB PO SCH (07:49)
[2017-10-10] MEDS: FLUTICASONE/SALMETEROL (ADVAIR) 500/50 INH 14 PUFF INH SCH ×2 (07:49→20:16)
[2017-10-10 08:30] LABS: ALBUMIN 3.5 gm/dl (3.4-5.0); CALCIUM 8.8 mg/dl (8.5-10.1); CREATININE 1.45 mg/dl (0.60-1.40); POTASSIUM 3.1 mmol/L (3.5-5.1)
[2017-10-10 08:40] LABS: TOTAL PROTEIN 6.5 gm/dl (6.4-8.2)
[2017-10-10] MEDS ORDERED: AMLODIPINE BESYLATE 5 MG TAB PO SCH (09:00)
[2017-10-10] MEDS ORDERED: SPIRONOLACTONE 25 MG TAB PO ONE (12:43)
--- NOTE | 2017-10-10 13:04 | CARDIOLOGY CONSULTATION ---
DATE OF CONSULTATION: 10/10/2017 REFERRING: Dr. Snow. PRIMARY CARE DOCTOR: Dr. Zendejas. INDICATIONS: Exertional syncope. HISTORY OF PRESENT ILLNESS: The patient is a complex 52-year-old male whose history is notable for morbid obesity with severe obstructive sleep apnea, past right heart failure and severe pulmonary hypertension by prior echocardiography. He has undergone extensive evaluation in the last 6 months' time which included diagnostic cardiac catheterization without obstructive coronary artery disease. VQ scan without evidence of thromboembolic phenomena has been maintained on diuretic dosage due to chronic peripheral edema. Has been using CPAP at home, presents this admission noting was climbing a flight of stairs and became lightheaded and possibly passed out with subsequent fall down a flight of 9 stairs with a facial contusion, noted no sense of tachypalpitations, noted no chest pain, notes no recent change in weight, orthopnea or worsening peripheral edema. He was noted to be significantly hypokalemic on initial ER presentation. He has not manifested any arrhythmic events on telemetry during initial evaluation or since hospitalization. EKG has not demonstrated any acute changes. Echocardiogram is pending. Further review, he denies fevers, chills, sweats, cough, hoarseness, wheeze or hemoptysis. Notes no melena or hematochezia, dysuria or hematuria. Weight has been stable. He has been taking medications as prescribed. Appetite remains good. Notes no unexplained fevers or infections, rash or arthritic complaints. ALLERGIES: None. MEDICATIONS PRIOR TO HOSPITALIZATION: Albuterol inhaler, amlodipine 2.5 mg per day, aspirin 81 mg per day, atorvastatin 20 p.o. day; furosemide 80 mg p.o. every day, that is 2 40 mg tablets. PAST SURGICAL HISTORY: Notable only for right and left heart catheterization on 05/06/2017. FAMILY HISTORY: Notable for diabetes in mother. No distinct history of familial heart disease. SOCIAL HISTORY: The patient is a nonsmoker, rare alcohol user. PHYSICAL EXAMINATION: GENERAL: The patient is an obese, age-appropriate male with no acute distress at time of exam. Visual contusions of the face are present. VITAL SIGNS: Reveal heart rate of 90, blood pressure 114/74. No distinct orthostasis noted this morning. HEENT: Normocephalic and atraumatic. Nares without discharge. Throat was clear. NECK: Supple without thyromegaly, lymphadenopathy, JVD. LUNGS: Reveal diminished breath sounds. CARDIOVASCULAR: Regular with normal S1, S2, no murmur or rub. ABDOMEN: Soft, obese, nontender. EXTREMITIES: Revealed no evidence of peripheral edema. LABORATORY DATA: On presentation - potassium is 2.7, this morning is 3.1; creatinine 1.8. Troponins are trivially elevated this morning at 0.046. TSH is 3.4. Hemoglobin 17.4. IMAGING STUDIES: Revealed no pulmonary infiltrate or edema. Carotid ultrasound without obstructive disease. Maxillofacial CT revealed soft tissue injury only. IMPRESSION: Complex 52-year-old male with well documented severe pulmonary hypertension felt to be class 2 in etiology with severe obstructive sleep apnea and morbid obesity as inciting cause. Cardiac evaluations demonstrated normal coronaries and normal left ventricular systolic function in the past several months, suspect the patient's event reflected a mild hypotension though arrhythmia do not completely excluded. RECOMMENDATIONS: Continue telemetry, at least an additional day. We will hold amlodipine/stop amlodipine. On discharge, we will plan on resuming furosemide at reduced dose with the addition of spironolactone at 12.5 mg per day for hypokalemia. Will follow patient in the hospital and review echocardiograms available.
--- NOTE | 2017-10-10 13:32 | ECHOCARDIOGRAM REPORT ---
*NOTICE TO RECEIVING REPUBLICAN AGENCY This information is strictly Confidential and protected under [place] law. [place] law prohibits you from making any further disclosure of this information unless further disclosure is expressly permitted by the written consent of the person to whom it pertains or is authorized by law. A general authorization for the release of medical or other information is not sufficient for this purpose. Hospital accepts no responsibility if the information is made available to any other person, INCLUDING THE PATIENT. Interpretation Summary * Name: MATY NEFF Study Date: 10/10/2017 06:56 AM BP: 119/86 mmHg * Patient Location: C.2T\S\S240\S\1 HR: 97 * : 1965 (M/d/yyyy) Gender: Male Height: 75 in * Age: 52 yrs Ethnicity: [place] Weight: 330 lb * Ordering Physician: Osvaldo Snow * Referring Physician: Self, Referred * Performed By: Reza Abrams RDCS * * Reason For Study: Syncope * BSA: 2.7 m2 * -- Conclusions -- * The left ventricular cavity is small. * There is mild concentric left ventricular hypertrophy. * Left ventricular systolic function is normal. * Flattened septum is consistent with RV pressure overload. * Ejection Fraction = 60-65%. * The right ventricle is severely dilated. * The right atrium is severely dilated. * Severe pulmomary hypertension is present, estimated PA systolic pressure >90 mm Hg Procedure Details * A complete two-dimensional transthoracic echocardiogram was performed (2D, M-mode, Doppler and color flow Doppler). * The study was technically adequate. Left Ventricle * The left ventricular cavity is small. * There is mild concentric left ventricular hypertrophy. * Left ventricular systolic function is normal. * Ejection Fraction = 60-65%. * The left ventricular wall motion is normal. * Flattened septum is consistent with RV pressure overload. Right Ventricle * The right ventricle is severely dilated. * There is moderate right ventricular hypertrophy. * The right ventricular systolic function is moderately reduced. Atria * The left atrial size is normal. * The right atrium is severely dilated. * No ASD detected; PFO is not assessed. Mitral Valve * The mitral valve anatomy is normal. * There is no mitral valve stenosis. * There is trace mitral regurgitation. Tricuspid Valve * The tricuspid valve is normal. * There is no tricuspid stenosis. * There is moderate tricuspid regurgitation. * Right ventricular systolic pressure is elevated at >60mmHg. Aortic Valve * The aortic valve is trileaflet. * Aortic valve sclerosis mild, without significant aortic valvular stenosis. * No hemodynamically significant valvular aortic stenosis. * No aortic regurgitation is present. Pulmonic Valve * The pulmonic valve is not well visualized. Great Vessels * The aortic root is normal size. Pericardium/Pleural * There is a trivial pericardial effusion Great Vessels * The inferior vena cava is moderately dilated. MMode 2D Measurements and Calculations IVSd 1.1 cm IVSs 1.3 cm LVIDd 5.0 cm LVIDs 3.7 cm LVPWd 1.1 cm LVPWs 1.3 cm IVS/LVPW 1.0 FS 25.2 % EDV(Teich) 116.9 ml ESV(Teich) 59.0 ml EF(Teich) 49.5 % EDV(cubed) 123.2 ml ESV(cubed) 51.6 ml EF(cubed) 58.1 % % IVS thick 10.9 % % LVPW thick 19.0 % LV mass(C)d 210.7 grams LV mass(C)dI 77.6 grams/m\S\2 LV mass(C)s 165.3 grams LV mass(C)sI 60.9 grams/m\S\2 SV(Teich) 57.9 ml SI(Teich) 21.3 ml/m\S\2 SV(cubed) 71.5 ml SI(cubed) 26.4 ml/m\S\2 EPSS 0.65 cm Ao root diam 3.9 cm Ao root area 12.2 cm\S\2 ACS 2.0 cm LA dimension 3.2 cm asc Aorta Diam 3.6 cm LA/Ao 0.82 LVOT diam 2.1 cm LVOT area 3.6 cm\S\2 LVAd ap4 21.9 cm\S\2 LVLd ap4 7.9 cm EDV(MOD-sp4) 51.9 ml EDV(sp4-el) 51.5 ml LVAs ap4 14.6 cm\S\2 LVLs ap4 7.2 cm ESV(MOD-sp4) 24.4 ml ESV(sp4-el) 24.9 ml EF(MOD-sp4) 53.0 % EF(sp4-el) 51.7 % LVAd ap2 19.2 cm\S\2 LVLd ap2 7.6 cm EDV(MOD-sp2) 44.0 ml EDV(sp2-el) 41.1 ml LVAs ap2 11.7 cm\S\2 LVLs ap2 6.0 cm ESV(MOD-sp2) 19.9 ml ESV(sp2-el) 19.5 ml EF(MOD-sp2) 54.8 % EF(sp2-el) 52.7 % LVLd %diff -3.98 % EDV(MOD-bp) 48.4 ml LVLs %diff -21.50 % ESV(MOD-bp) 24.1 ml EF(MOD-bp) 50.2 % SV(MOD-sp4) 27.5 ml SI(MOD-sp4) 10.1 ml/m\S\2 SV(MOD-sp2) 24.1 ml SI(MOD-sp2) 8.9 ml/m\S\2 SV(MOD-bp) 24.3 ml SI(MOD-bp) 8.9 ml/m\S\2 SV(sp4-el) 26.7 ml SI(sp4-el) 9.8 ml/m\S\2 SV(sp2-el) 21.7 ml SI(sp2-el) 8.0 ml/m\S\2 Doppler Measurements and Calculations Ao V2 max 89.0 cm/sec Ao max PG 3.2 mmHg Ao max PG (full) 1.9 mmHg LENNY(V,A) 2.3 cm\S\2 LENNY(V,D) 2.3 cm\S\2 LV V1 max PG 1.3 mmHg LV V1 max 57.0 cm/sec TR max jamee 444.5 cm/sec
[2017-10-11] VITALS (8 sets, daily range): BP systolic 106–119; BP diastolic 72–87; PULSE 73–127; TEMP 36.4–36.8; O2SAT 78–96
[2017-10-11] MEDS: ASPIRIN 81 MG ECTAB PO SCH (08:18)
[2017-10-11] MEDS: FLUTICASONE/SALMETEROL (ADVAIR) 500/50 INH 14 PUFF INH SCH ×2 (08:18→20:52)
[2017-10-11] MEDS: ATORVASTATIN 20 MG TAB PO SCH (08:19)
[2017-10-11 08:49] LABS: HEMATOCRIT 47.7 % (42-52); MEAN CELL VOLUME 91.4 fL (80-100); MEAN CORPUSCULAR HEMOGLOBIN 32.6 pg (25-34); MEAN CORPUSCULAR HGB CONC 35.6 g/dl (32-36); MEAN PLATELET VOLUME 11.7 fL (7.4-10.4); PLATELET COUNT 165 K/uL (130-400); RED CELL DISTRIBUTION WIDTH SD 52.9 fL (36.4-46.3); WHITE BLOOD COUNT 8.36 K/uL (4.8-10.8)
[2017-10-11] MEDS ORDERED: SPIRONOLACTONE 25 MG TAB PO SCH (09:00)
[2017-10-11 09:27] LABS: CALCIUM 9.1 mg/dl (8.5-10.1); CREATININE 1.47 mg/dl (0.60-1.40); POTASSIUM 2.9 mmol/L (3.5-5.1)
[2017-10-11] MEDS ORDERED: POTASSIUM CHLORIDE 20 MEQ TABCR PO STA ×2 (09:41→12:28)
--- NOTE | 2017-10-11 11:26 | PROGRESS NOTE ---
DATE: 10/11/2017 CARDIOLOGY CONSULTATION FOLLOWUP NOTE REFERRING: Dr. Stone. HISTORY OF PRESENT ILLNESS: The patient is a 52-year-old male and this morning feels well, notes continued to complain of mild dizziness on standing, but notes no syncope or near syncope. Notes no chest pain or discomfort. Notes no tachypalpitations, orthopnea. Lower extremity edema appears stable with only minimal edema present. OBJECTIVE: VITAL SIGNS: Heart rate is 73, blood pressure is 118/87 with 8-point drop in blood pressure on standing. O2 saturations 92% on room air. HEENT: Normocephalic, atraumatic. NECK: Thick. There is no distinct jugular venous distention. LUNGS: Reveal diminished breath sounds. CARDIOVASCULAR: Regular. There is no S3 gallop. ABDOMEN: Soft, nontender. EXTREMITIES: Without cyanosis or clubbing. There is trace peripheral edema. DATA: EKG reveals sinus rhythm with first degree AV block, incomplete right bundle branch block, poor R-wave progression across the anterior precordial leads without appreciable change. LABORATORY DATA: White cell count is 8.3, hemoglobin is 17.0, and hematocrit is 47.7. Sodium is 136, potassium is 2.9, chloride is 99, bicarbonate is 27, BUN is 21, and creatinine is 1.47. IMPRESSION: A 52-year-old male with severe pulmonary hypertension with a syncopal event of exercise mediated, evidence of orthostasis on prior diuretics and use of a calcium channel nash. RECOMMENDATIONS: Would avoid calcium channel nash in the future. Continue current spironolactone at 12.5 mg twice per day, supplement potassium with ultimate goals potassium above 4 with planned ultimately a substantial reduction of furosemide usage. Sodium and fluid restriction will be discussed. The patient likely be a candidate for Revatio Once potassium supplemented, we may consider instituting. Will need close clinical follow up through pulmonology. Echocardiogram demonstrating severe pulmonary hypertension approaching systemic severity, estimated pulmonary pressures greater than 90 mmHg. MTDD
--- NOTE | 2017-10-11 12:34 | Progress Note ---
Internal Med Progress Note Date of Service: Oct 10, 2017. Provider Documentation: SUBJECTIVE: The patient was seen and examined to telemetry unit. He was admitted with dizziness spell and syncope. He fell down a stairway is with bad injury left forehead Complains to have loss of consciousness for a few seconds and also complaints of dizziness on exertion and ambulation. Feels a lot better following admission Remains SOB on Minimal Exertion OBJECTIVE: Vital Signs-as noted below Exam: General-. No apparent distress at rest SOB on minimal exertion Eyes-normal ENT-normal Neck-supple Lungs-clear to auscultate with minimal crackles at the bases Heart-regular no murmur appreciated Abdomen-benign, no organomegaly, bowel sounds present. Extremities-trace edema bilaterally. Neuro-alert awake and oriented 3. No focal sensory or motor deficit appreciated Lab data as noted below. CT scans were unremarkable, especially no fracture ASSESSMENT & PLAN: S/P Fall Head trauma from syncope and falling down the stairs -scans of head /face/ neck without fractures -Gets dizziness on Exertion and ambulation Syncope -may be secondary to Lasix vs right heart failure vs pulmonary hypertension vs arrhythmia -Cardiac cath on 04/2017: The coronary arteries are angiographically normal.PA: 89/44, mean:61 mmHg, severe pulmonary hypertension -Echocardiogram on 04/2017 There is moderate concentric left ventricular hypertrophy. The left ventricular ejection fraction is grossly normal. Flattened septum is consistent with RV pressure overload. The right ventricular systolic function is severely reduced. The left atrial size is normal. The right atrium is severely dilated. Severe pulmonary hypertension is present -Repeat echocardiogram :The left ventricular cavity is small. * There is mild concentric left ventricular hypertrophy. * Left ventricular systolic function is normal. * Flattened septum is consistent with RV pressure overload. * Ejection Fraction = 60-65%. * The right ventricle is severely dilated. * The right atrium is severely dilated. * Severe pulmomary hypertension is present, estimated PA systolic pressure > 90 mm Hg Repeat ECHO:: * There is mild concentric left ventricular hypertrophy. * Left ventricular systolic function is normal. * Flattened septum is consistent with RV pressure overload. * Ejection Fraction = 60-65%. * The right ventricle is severely dilated. * The right atrium is severely dilated. * Severe pulmomary hypertension is present, estimated PA systolic pressure > 90 mm Hg -ultrasound::The left ventricular cavity is small. -initial troponin negative and no ACS -appreciate Cardiology input -Will need OP Pulmonary appointment for further management of Pulmonary Hypertension Blood pressure -check orthostatic vital signs -continue home medication of low dose 2.5 mg amlodipine -plan to discontinue CCB Hypokalemia likely from diuretic use -has been on 80 mg Lasix daily at home, is euvolemic, will hold this Lasix medication pending correction of electrolyte deficiencies and cardiology consult evaluation -10 meq potassium given in the ED as IV, 80 meq oral potassium ordered, recheck serum potassium -check serum magnesium level and ensure serum magnesium is 2 to allow for correction of the hypokalemia with potassium supplements -will need Continuos supplementation of K -Received 40 mcq K this AM ,will give another 40 Mcq -Spironolactone added History of asthma -no recent asthma attacks -continue home inhaler medications Sleep Apnea uses CPAP at home, continue CPAP Patient attends pulmonary rehabilitation for the pulmonary hypertension FULL code status Vital Signs: Date Time Temp Pulse Resp B/P (MAP) Pulse Ox O2 Delivery O2 Flow Rate FiO2 10/11/17 12:00 Room Air 10/11/17 11:53 36.8 84 22 117/73 (88) 91 Room Air 10/11/17 08:00 Room Air 10/11/17 07:43 36.6 73 22 118/87 (97) 92 Room Air 81 113/77 (89) 85 110/75 (87) 10/11/17 04:00 BiPAP 10/11/17 03:19 36.4 74 20 119/82 (94) 96 BiPAP 10/10/17 23:59 BiPAP 10/10/17 23:38 85 110/73 (85) 10/10/17 23:36 81 109/75 (86) 10/10/17 23:34 36.8 84 22 111/77 (88) 92 Room Air 10/10/17 22:11 79 95 10/10/17 20:00 Room Air 10/10/17 19:29 36.7 88 20 108/74 (85) 90 Room Air 10/10/17 16:00 92 Room Air 10/10/17 15:57 36.7 90 20 113/75 (88) 91 Room Air 90 120/80 (93) 121/76 (91) Lab Results: Results Past 24 Hours Test 10/11/17 08:07 Range/Units White Blood Count 8.36 4.8-10.8 K/uL Red Blood Count 5.22 4.7-6.1 M/uL Hemoglobin 17.0 14.0-18.0 g/dL Hematocrit 47.7 42-52 % Mean Corpuscular Volume 91.4 80-100 fL Mean Corpuscular Hemoglobin 32.6 25-34 pg Mean Corpuscular Hemoglobin Concent 35.6 32-36 g/dl RDW Standard Deviation 52.9 36.4-46.3 fL RDW Coefficient of Variation 16.0 11.5-14.5 % Platelet Count 165 130-400 K/uL Mean Platelet Volume 11.7 7.4-10.4 fL Sodium Level 136 136-145 mmol/L Potassium Level 2.9 3.5-5.1 mmol/L Chloride Level 99 98-107 mmol/L Carbon Dioxide Level 27 21-32 mmol/L Anion Gap 10.0 3-11 mmol/L Blood Urea Nitrogen 21 7-18 mg/dl Creatinine 1.47 0.60-1.40 mg/dl Est Creatinine Clear Calc Drug Dose 93.8 ml/min Estimated GFR () 62.7 Estimated GFR (Non- 54.1 BUN/Creatinine Ratio 14.0 10-20 Random Glucose 106 70-99 mg/dl Calcium Level 9.1 8.5-10.1 mg/dl Magnesium Level 2.1 1.8-2.4 mg/dl
[2017-10-11] MEDS ORDERED: NURSING VERBAL MED ORDER ONE ×2 (13:30→15:00)
[2017-10-11] MEDS ORDERED: POTASSIUM CHLORIDE 20 MEQ TABCR PO ONE (14:30)
[2017-10-11] MEDS ORDERED: BENZONATATE 100MG CAP PO PRN (15:45)
[2017-10-11] MEDS: SPIRONOLACTONE 25 MG TAB PO SCH (16:30)
[2017-10-12] VITALS (11 sets, daily range): BP systolic 94–118; BP diastolic 61–83; PULSE 76–150; TEMP 36.3–37.2; O2SAT 90–95
[2017-10-12 07:20] LABS: CREATININE 1.67 mg/dl (0.60-1.40); POTASSIUM 3.3 mmol/L (3.5-5.1)
[2017-10-12] MEDS ORDERED: POTASSIUM CHLORIDE 10 MEQ TABCR PO STA (07:26)
[2017-10-12] MEDS: ATORVASTATIN 20 MG TAB PO SCH (08:15)
[2017-10-12] MEDS: FLUTICASONE/SALMETEROL (ADVAIR) 500/50 INH 14 PUFF INH SCH ×2 (08:15→21:10)
[2017-10-12] MEDS: ASPIRIN 81 MG ECTAB PO SCH (08:16)
[2017-10-12] MEDS: SPIRONOLACTONE 25 MG TAB PO SCH ×2 (08:16→17:01)
[2017-10-12] MEDS ORDERED: SILDENAFIL CITRATE 20 MG TAB PO ONE (10:29)
--- NOTE | 2017-10-12 10:35 | PROGRESS NOTE ---
DATE: 10/12/2017 The patient seen and examined. Chart, medications, telemetry reviewed. SUBJECTIVE: The patient notes occasional dizziness on sudden standing but otherwise feels well. Notes no chest pains, tachypalpitations, orthopnea or worsening peripheral edema. Weight has been stable. Telemetry reveals no tachyarrhythmias. OBJECTIVE: VITAL SIGNS: Heart rate is 92, blood pressure is 108/76. NECK: Thick. There is no distinct jugular venous distention. LUNGS: Notable for mild diminished breath sounds. CARDIOVASCULAR: Regular. There is no S3 gallop. ABDOMEN: Soft, nontender. There is no palpable hepatosplenomegaly, there is no hepatojugular reflux. EXTREMITIES: Without cyanosis or clubbing. There is trace pedal edema only. DATA: Sodium is 136, potassium is 3.3, chloride is 100, bicarbonate is 30, BUN is 22, creatinine is 1.6. IMPRESSION AND PLAN: A 52-year-old male with syncope secondary to likely hypoperfusion from right heart failure with dehydration and hypokalemia and medication therapies. RECOMMENDATIONS: Discontinue amlodipine as already done. Continue spironolactone at 12.5 mg twice per day with potassium supplement. Continue to hold furosemide. CPAP/BiPAP supplementation. We will take this opportunity to initiate Revatio in the hospital, first dose ordered this morning.
--- NOTE | 2017-10-12 14:04 | Progress Note ---
Internal Med Progress Note Date of Service: Oct 12, 2017. Provider Documentation: SUBJECTIVE: The patient was seen and examined to telemetry unit. He was admitted with dizziness spell and syncope. He fell down a stairway is with bad injury left forehead Complains to have loss of consciousness for a few seconds and also complaints of dizziness on exertion and ambulation. Feels a lot better following admission Remains SOB on Minimal Exertion- Denies any other symptoms OBJECTIVE: Vital Signs-as noted below Exam: General-. No apparent distress at rest SOB on minimal exertion Obese Eyes-normal ENT-normal Neck-supple Lungs-clear to auscultate with minimal crackles at the bases Heart-regular no murmur appreciated Abdomen-benign, no organomegaly, bowel sounds present. Extremities-trace edema bilaterally. Neuro-alert awake and oriented 3. No focal sensory or motor deficit appreciated Lab data as noted below. CT scans were unremarkable, especially no fracture ASSESSMENT & PLAN: S/P Fall Head trauma from syncope and falling down the stairs -scans of head /face/ neck without fractures -Gets dizziness on Exertion and ambulation Syncope -may be secondary to Lasix vs right heart failure vs pulmonary hypertension vs arrhythmia -Cardiac cath on 04/2017: The coronary arteries are angiographically normal.PA: 89/44, mean:61 mmHg, severe pulmonary hypertension -Echocardiogram on 04/2017 There is moderate concentric left ventricular hypertrophy. The left ventricular ejection fraction is grossly normal. Flattened septum is consistent with RV pressure overload. The right ventricular systolic function is severely reduced. The left atrial size is normal. The right atrium is severely dilated. Severe pulmonary hypertension is present -Repeat echocardiogram :The left ventricular cavity is small. * There is mild concentric left ventricular hypertrophy. * Left ventricular systolic function is normal. * Flattened septum is consistent with RV pressure overload. * Ejection Fraction = 60-65%. * The right ventricle is severely dilated. * The right atrium is severely dilated. * Severe pulmomary hypertension is present, estimated PA systolic pressure > 90 mm Hg Repeat ECHO:: * There is mild concentric left ventricular hypertrophy. * Left ventricular systolic function is normal. * Flattened septum is consistent with RV pressure overload. * Ejection Fraction = 60-65%. * The right ventricle is severely dilated. * The right atrium is severely dilated. * Severe pulmomary hypertension is present, estimated PA systolic pressure > 90 mm Hg -ultrasound::The left ventricular cavity is small. -initial troponin negative and no ACS -appreciate Cardiology input -Likely secondary to Hypoperfusion secondary to Pul HTN complicated by hypotension -Medication adjusted Severe Pulmonary Hypertension Revatio ordered will need close OP Pulmonary follow ups Blood pressure -check orthostatic vital signs -continue home medication of low dose 2.5 mg amlodipine -plan to discontinue CCB -medications adjusted Hypokalemia likely from diuretic use -has been on 80 mg Lasix daily at home, is euvolemic, will hold this Lasix medication pending correction of electrolyte deficiencies and cardiology consult evaluation -10 meq potassium given in the ED as IV, 80 meq oral potassium ordered, recheck serum potassium -check serum magnesium level and ensure serum magnesium is 2 to allow for correction of the hypokalemia with potassium supplements -will need Continuos supplementation of K -Received 40 mcq K this AM ,will give another 40 Mcq -Spironolactone added -will need ongoing supplement therapy History of asthma -no recent asthma attacks -continue home inhaler medications Sleep Apnea uses CPAP at home, continue CPAP Patient attends pulmonary rehabilitation for the pulmonary hypertension FULL code status Vital Signs: Date Time Temp Pulse Resp B/P (MAP) Pulse Ox O2 Delivery O2 Flow Rate FiO2 10/12/17 12:00 Room Air 10/12/17 11:51 37.2 149 22 110/76 (87) 91 10/12/17 09:29 Room Air 10/12/17 07:38 92 24 108/76 (87) 92 10/12/17 07:34 134 24 110/79 (89) 90 10/12/17 07:31 37.0 82 20 111/78 (89) 91 10/12/17 04:00 BiPAP 10/12/17 03:23 36.3 76 20 118/83 (95) 95 BiPAP 10/12/17 00:00 BiPAP 10/12/17 00:00 94 110/77 (88) 10/11/17 23:59 92 114/80 (91) 10/11/17 23:58 36.7 84 21 115/82 (93) 94 BiPAP 10/11/17 23:12 81 95 10/11/17 20:00 Room Air 10/11/17 19:15 36.8 88 22 106/72 (83) 90 Room Air 10/11/17 16:00 Room Air 10/11/17 15:15 36.8 127 20 119/85 (96) 78 Room Air 117 113/81 (92) 117/78 (91) Lab Results: Results Past 24 Hours Test 10/12/17 06:28 Range/Units Sodium Level 136 136-145 mmol/L Potassium Level 3.3 3.5-5.1 mmol/L Chloride Level 100 98-107 mmol/L Carbon Dioxide Level 30 21-32 mmol/L Anion Gap 7.0 3-11 mmol/L Blood Urea Nitrogen 22 7-18 mg/dl Creatinine 1.67 0.60-1.40 mg/dl Est Creatinine Clear Calc Drug Dose 82.8 ml/min Estimated GFR () 53.7 Estimated GFR (Non- 46.3 BUN/Creatinine Ratio 13.2 10-20 Random Glucose 87 70-99 mg/dl Calcium Level 9.0 8.5-10.1 mg/dl Magnesium Level 2.1 1.8-2.4 mg/dl
[2017-10-12] MEDS: SILDENAFIL CITRATE 20 MG TAB PO SCH ×2 (14:05→21:10)
[2017-10-13] VITALS (13 sets, daily range): BP systolic 99–127; BP diastolic 62–92; PULSE 57–94; TEMP 36.6–37; O2SAT 88–96
[2017-10-13 07:38] LABS: HEMATOCRIT 45.1 % (42-52); HEMOGLOBIN 15.8 g/dL (14.0-18.0); MEAN CELL VOLUME 92.4 fL (80-100); MEAN CORPUSCULAR HEMOGLOBIN 32.4 pg (25-34); MEAN PLATELET VOLUME 11.3 fL (7.4-10.4); PLATELET COUNT 143 K/uL (130-400); RED CELL DISTRIBUTION WIDTH CV 16.1 % (11.5-14.5); WHITE BLOOD COUNT 9.22 K/uL (4.8-10.8)
[2017-10-13] MEDS: FLUTICASONE/SALMETEROL (ADVAIR) 500/50 INH 14 PUFF INH SCH ×2 (07:53→20:36)
[2017-10-13] MEDS: ASPIRIN 81 MG ECTAB PO SCH (07:53)
[2017-10-13] MEDS: SPIRONOLACTONE 25 MG TAB PO SCH ×2 (07:53→16:21)
[2017-10-13] MEDS: SILDENAFIL CITRATE 20 MG TAB PO SCH ×3 (07:53→20:36)
[2017-10-13] MEDS: ATORVASTATIN 20 MG TAB PO SCH (07:54)
[2017-10-13 08:05] LABS: CALCIUM 8.9 mg/dl (8.5-10.1); CREATININE 1.54 mg/dl (0.60-1.40); POTASSIUM 3.3 mmol/L (3.5-5.1)
[2017-10-13] MEDS ORDERED: POTASSIUM CHLORIDE 10 MEQ TABCR PO STA (11:27)
--- NOTE | 2017-10-13 11:47 | PROGRESS NOTE ---
DATE: 10/13/2017 CARDIOLOGY CONSULTATION FOLLOWUP NOTE The patient seen and examined. Chart, medications, telemetry reviewed. SUBJECTIVE: The patient notes no complaints this morning. He has tolerated the addition of Revatio with no further dizziness or lightheadedness. Notes no chest pains or dizziness. Notes no tachy palpitations. OBJECTIVE: VITAL SIGNS: Heart rate is 77, blood pressure is 104/63 with minimal orthostasis. NECK: Thick. There is no distinct jugular venous distention. LUNGS: Reveal diminished breath sounds. CARDIOVASCULAR: Regular. There is no S3 gallop. ABDOMEN: Soft, nontender. EXTREMITIES: Free of edema. LABORATORY DATA: Sodium is 136, potassium is 3.3, chloride is 99, bicarbonate is 29, BUN is 25, creatinine is 1.5. White cell count is 9.2, hemoglobin is 15.8. IMPRESSION: A 52-year-old male admitted after a fall and near syncope in the setting of severe pulmonary hypertension class 2 based on underlying hypoventilation Pickwickian syndrome, morbid obesity per reports. No further arrhythmias or abnormalities discerned. Diuretics have been held without signs of fluid retention. RECOMMENDATIONS: We will continue spironolactone at 12.5 mg per day, supplement potassium today. Revatio has been initiated at 5 mg 3 times per day. We would continue recommend followup with pulmonology and primary right of way agent shortly after discharge. We would make patient's current furosemide to be used only on a p.r.n. basis for worsening peripheral edema, CHF instructions with daily weights to be administered.
--- NOTE | 2017-10-13 18:37 | Progress Note ---
Subjective Date of Service: Oct 13, 2017. Subjective Pt evaluation today including: conversation w/ patient, physical exam, lab review, review of studies, review of inpatient medication list Saw/examined the patient in room 240 Patient is feeling fine, breathing status improved while at rest, continues to have shortness of breath with exertion Denies chest pain; no other symptoms at this time Problem List Medical Problems: (1) Chest pain Status: Acute (2) Facial contusion Status: Acute (3) Fluid overload Status: Acute (4) Head injury Status: Acute (5) Hypokalemia Status: Acute (6) Hypoxia Status: Acute (7) Orthostatic hypotension Status: Acute (8) Shortness of breath Status: Acute (9) Syncope Status: Acute Review of Systems Constitutional: No fever, No chills Respiratory: + dyspnea on exertion, No cough, No sputum, No wheezing, No shortness of breath Cardiac: + edema, No chest pain, No palpitations Abdomen: No pain, No nausea, No vomiting, No diarrhea Medications Current Inpatient Medications Medications (Trade) Dose Ordered Sig/Joon Route Start Time Stop Time Status Last Admin Dose Admin Albuterol (Ventolin Hfa Inhaler) 1 puffs Q6H PRN INH 10/10/17 02:30 11/09/17 02:29 10/11/17 19:44 1 PUFFS Aspirin (Ecotrin Tab) 81 mg QAM PO 10/10/17 09:00 11/09/17 08:59 10/13/17 07:53 81 MG Atorvastatin Calcium (Lipitor Tab) 20 mg DAILY PO 10/10/17 09:00 11/09/17 08:59 10/13/17 07:54 20 MG Salmeterol Xinafoate/ Fluticasone (Advair Diskus 500/50 Inh) 1 puff BID INH 10/10/17 09:00 11/09/17 08:59 10/13/17 07:53 1 PUFF Miscellaneous (Iv Fluids Completed) 1 ea PRN PRN N/A 10/10/17 03:45 10/10/18 03:44 Spironolactone (Aldactone Tab) 12.5 mg BID17 PO 10/11/17 17:00 11/10/17 08:59 10/13/17 16:21 12.5 MG Benzonatate (Tessalon Perles Cap) 100 mg Q6H PRN PO 10/11/17 15:45 11/10/17 15:44 10/11/17 15:51 100 MG Sildenafil Citrate (Revatio Tab) 5 mg TID PO 10/12/17 14:00 11/11/17 13:59 10/13/17 13:49 5 MG Objective Vital Signs Date Time Temp Pulse Resp B/P (MAP) Pulse Ox O2 Delivery O2 Flow Rate FiO2 10/13/17 15:44 36.7 80 20 112/74 (87) 91 Room Air 115/77 (90) 105/68 (80) 10/13/17 12:28 36.8 75 18 111/78 (89) 96 10/13/17 08:16 Room Air 10/13/17 08:01 36.8 77 18 99/62 (74) 95 79 104/63 (77) 84 107/74 (85) 10/13/17 04:00 Room Air 10/13/17 03:48 36.7 75 22 115/79 (91) 95 BiPAP 10/13/17 00:29 57 94 21 10/13/17 00:16 95 Nasal Cannula 3.0 10/13/17 00:08 91 Nasal Cannula 2.0 10/13/17 00:06 94 111/73 (86) 10/13/17 00:04 89 112/78 (89) 10/13/17 00:02 37.0 86 22 106/76 (86) 88 Room Air 10/12/17 23:26 Room Air 10/12/17 20:17 98 94/63 (73) 10/12/17 20:15 113 108/75 (86) 10/12/17 20:13 88 106/69 (81) 10/12/17 19:25 Room Air 10/12/17 19:00 36.8 150 20 106/61 (76) 92 Room Air Physical Exam General Appearance: no apparent distress, + obese Respiratory/Chest: no respiratory distress, no accessory muscle use, + decreased breath sounds Cardiovascular: regular rate, rhythm, no edema, no murmur Extremities: normal range of motion, non-tender, normal inspection, no pedal edema, no calf tenderness Neurologic/Psychiatric: no motor/sensory deficits, alert, normal mood/affect Laboratory Results Last 24 Hours Test 10/13/17 07:12 White Blood Count 9.22 K/uL Red Blood Count 4.88 M/uL Hemoglobin 15.8 g/dL Hematocrit 45.1 % Mean Corpuscular Volume 92.4 fL Mean Corpuscular Hemoglobin 32.4 pg Mean Corpuscular Hemoglobin Concent 35.0 g/dl RDW Standard Deviation 54.0 fL RDW Coefficient of Variation 16.1 % Platelet Count 143 K/uL Mean Platelet Volume 11.3 fL Sodium Level 136 mmol/L Potassium Level 3.3 mmol/L Chloride Level 99 mmol/L Carbon Dioxide Level 29 mmol/L Anion Gap 7.0 mmol/L Blood Urea Nitrogen 25 mg/dl Creatinine 1.54 mg/dl Est Creatinine Clear Calc Drug Dose 90.0 ml/min Estimated GFR () 59.2 Estimated GFR (Non- 51.1 BUN/Creatinine Ratio 16.2 Random Glucose 87 mg/dl Calcium Level 8.9 mg/dl Magnesium Level 2.1 mg/dl Assessment and Plan This is a 52 year old male with a PMH of morbid obesity, obstructive sleep apnea with nocturnal CPAP use, R heart failure, severe pulmonary hypertension - presents with shortness of breath as well as lightheadedness and a fall Severe Pulmonary HTN R Ventricular Systolic Dysfunction - secondary to ERICA and morbid obesity - started on Aldactone as per cardiology - started on Revatio as per cardiology - monitor electrolytes - will obtain a two step in the AM - Lasix as needed for edema - continue CPAP nocturnally - outpatient pulmonary and cardiology - continued outpatient pulmonary rehab Syncope - patient presented with a fall; no acute fractures - this was likely secondary to his severe pulmonary hypertension - continue PT/OT - may need oxygen with ambulation to prevent hypoxia Hypokalemia - continue supplementing - currently on Aldactone - Lasix will now be PRN as per cardiology - monitor and may still need K supplementation Obstructive Sleep Apnea - nocturnal CPAP - outpatient pulmonology follow-up HTN - blood pressure is stable - stop amlodipine - continue diuretics as outpatient Asthma - continue home inhalers - outpatient PFTs DVT ppx - ambulation, SCDs FULL CODE plan for d/c on 10/14 if symptoms improve two step on 10/14
[2017-10-14 03:30] VITALS: BP 118/82; PULSE 91; TEMP 36.7; O2SAT 96
[2017-10-14 07:28] LABS: HEMATOCRIT 46.1 % (42-52); HEMOGLOBIN 16.1 g/dL (14.0-18.0); MEAN CELL VOLUME 92.2 fL (80-100); MEAN CORPUSCULAR HEMOGLOBIN 32.2 pg (25-34); MEAN CORPUSCULAR HGB CONC 34.9 g/dl (32-36); MEAN PLATELET VOLUME 11.1 fL (7.4-10.4); PLATELET COUNT 147 K/uL (130-400); RED CELL DISTRIBUTION WIDTH CV 16.4 % (11.5-14.5); WHITE BLOOD COUNT 9.53 K/uL (4.8-10.8)
[2017-10-14 07:39] VITALS: BP 108/75; PULSE 72; TEMP 36.6; O2SAT 96
[2017-10-14 07:54] LABS: CREATININE 1.51 mg/dl (0.60-1.40); POTASSIUM 3.7 mmol/L (3.5-5.1)
[2017-10-14] MEDS: ATORVASTATIN 20 MG TAB PO SCH (08:12)
[2017-10-14] MEDS: SILDENAFIL CITRATE 20 MG TAB PO SCH ×2 (08:14→14:21)
[2017-10-14] MEDS: ASPIRIN 81 MG ECTAB PO SCH (08:15)
[2017-10-14] MEDS: FLUTICASONE/SALMETEROL (ADVAIR) 500/50 INH 14 PUFF INH SCH (08:15)
[2017-10-14] MEDS: SPIRONOLACTONE 25 MG TAB PO SCH (08:15)
--- NOTE | 2017-10-14 09:43 | Progress Note ---
Subjective Date of Service: Oct 14, 2017. Subjective Pt evaluation today including: conversation w/ patient, physical exam, lab review, review of studies, review of inpatient medication list Saw/examined the patient in room 240 No problems/issues at this time He states he feels fine while laying down two step not yet performed; patient is eager to go home Problem List Medical Problems: (1) Chest pain Status: Acute (2) Facial contusion Status: Acute (3) Fluid overload Status: Acute (4) Head injury Status: Acute (5) Hypokalemia Status: Acute (6) Hypoxia Status: Acute (7) Orthostatic hypotension Status: Acute (8) Shortness of breath Status: Acute (9) Syncope Status: Acute Review of Systems Constitutional: No fever, No chills Respiratory: + dyspnea on exertion, No cough, No sputum, No wheezing, No shortness of breath, No dyspnea at rest, No hemoptysis Cardiac: No chest pain, No edema, No palpitations Abdomen: No pain, No nausea, No vomiting, No diarrhea Heme: No abnormal bleeding/bruising Medications Current Inpatient Medications Medications (Trade) Dose Ordered Sig/Joon Route Start Time Stop Time Status Last Admin Dose Admin Albuterol (Ventolin Hfa Inhaler) 1 puffs Q6H PRN INH 10/10/17 02:30 11/09/17 02:29 10/11/17 19:44 1 PUFFS Aspirin (Ecotrin Tab) 81 mg QAM PO 10/10/17 09:00 11/09/17 08:59 10/14/17 08:15 81 MG Atorvastatin Calcium (Lipitor Tab) 20 mg DAILY PO 10/10/17 09:00 11/09/17 08:59 10/14/17 08:12 20 MG Salmeterol Xinafoate/ Fluticasone (Advair Diskus 500/50 Inh) 1 puff BID INH 10/10/17 09:00 11/09/17 08:59 10/14/17 08:15 1 PUFF Miscellaneous (Iv Fluids Completed) 1 ea PRN PRN N/A 10/10/17 03:45 10/10/18 03:44 Spironolactone (Aldactone Tab) 12.5 mg BID17 PO 10/11/17 17:00 11/10/17 08:59 10/14/17 08:15 12.5 MG Benzonatate (Tessalon Perles Cap) 100 mg Q6H PRN PO 10/11/17 15:45 11/10/17 15:44 10/11/17 15:51 100 MG Sildenafil Citrate (Revatio Tab) 5 mg TID PO 10/12/17 14:00 11/11/17 13:59 10/14/17 08:14 5 MG Objective Vital Signs Date Time Temp Pulse Resp B/P (MAP) Pulse Ox O2 Delivery O2 Flow Rate FiO2 10/14/17 07:39 36.6 72 20 108/75 (86) 96 10/14/17 04:05 Room Air 10/14/17 03:30 36.7 91 20 118/82 (94) 96 BiPAP 10/14/17 00:00 Room Air 10/13/17 23:26 36.6 80 23 124/92 (103) 96 BiPAP 82 120/83 (95) 127/88 (101) 10/13/17 22:34 59 95 21 10/13/17 20:04 Room Air 10/13/17 19:14 36.6 78 22 107/75 (86) 93 Room Air 10/13/17 15:44 36.7 80 20 112/74 (87) 91 Room Air 115/77 (90) 105/68 (80) 10/13/17 12:28 36.8 75 18 111/78 (89) 96 Physical Exam General Appearance: no apparent distress, + obese Respiratory/Chest: lungs clear, normal breath sounds, no respiratory distress, no accessory muscle use Cardiovascular: regular rate, rhythm, no edema, no murmur Extremities: normal inspection, no pedal edema Laboratory Results Last 24 Hours Test 10/14/17 06:58 White Blood Count 9.53 K/uL Red Blood Count 5.00 M/uL Hemoglobin 16.1 g/dL Hematocrit 46.1 % Mean Corpuscular Volume 92.2 fL Mean Corpuscular Hemoglobin 32.2 pg Mean Corpuscular Hemoglobin Concent 34.9 g/dl RDW Standard Deviation 55.0 fL RDW Coefficient of Variation 16.4 % Platelet Count 147 K/uL Mean Platelet Volume 11.1 fL Sodium Level 136 mmol/L Potassium Level 3.7 mmol/L Chloride Level 100 mmol/L Carbon Dioxide Level 29 mmol/L Anion Gap 8.0 mmol/L Blood Urea Nitrogen 24 mg/dl Creatinine 1.51 mg/dl Est Creatinine Clear Calc Drug Dose 92.0 ml/min Estimated GFR () 60.7 Estimated GFR (Non- 52.3 BUN/Creatinine Ratio 16.2 Random Glucose 84 mg/dl Calcium Level 9.0 mg/dl Magnesium Level 2.3 mg/dl Assessment and Plan This is a 52 year old male with a PMH of morbid obesity, obstructive sleep apnea with nocturnal CPAP use, R heart failure, severe pulmonary hypertension - presents with shortness of breath as well as lightheadedness and a fall Severe Pulmonary HTN R Ventricular Systolic Dysfunction 10/14 - plan is to continue Aldactone and Revatio - Lasix PRN for lower extremity edema - secondary to ERICA and morbid obesity/hypoventilation - two step pending - likely d/c home today 10/13 - secondary to ERICA and morbid obesity - started on Aldactone as per cardiology - started on Revatio as per cardiology - monitor electrolytes - will obtain a two step in the AM - Lasix as needed for edema - continue CPAP nocturnally - outpatient pulmonary and cardiology - continued outpatient pulmonary rehab Syncope - patient presented with a fall; no acute fractures - this was likely secondary to his severe pulmonary hypertension - continue PT/OT - may need oxygen with ambulation to prevent hypoxia Hypokalemia - continue supplementing - currently on Aldactone - Lasix will now be PRN as per cardiology - monitor and may still need K supplementation Obstructive Sleep Apnea - nocturnal CPAP - outpatient pulmonology follow-up HTN - blood pressure is stable - stop amlodipine - continue diuretics as outpatient Asthma - continue home inhalers - outpatient PFTs DVT ppx - ambulation, SCDs FULL CODE plan for d/c on 10/14 if symptoms improve two step on 10/14
[2017-10-14] MEDS ORDERED: SPR25 PO (11:48)
[2017-10-14] MEDS ORDERED: OXGN (11:48)
[2017-10-14] MEDS ORDERED: SILD1TAB25 PO (11:48)
[2017-10-14] MEDS ORDERED: FURO20TA PO (11:48)
[2017-10-14 11:58] VITALS: BP 115/76; PULSE 76; TEMP 36.5; O2SAT 96
[2017-10-14] MEDS ORDERED: MCRK20 PO (12:01)
--- NOTE | 2017-10-14 12:03 | Discharge Instructions ---
Discharge Instructions Date of Service Oct 14, 2017. Admission Reason for Admission: Head Injury, Hypokalemia, Orthostatic Hypotension, Discharge Discharge Diagnosis / Problem: Fall, Pulmonary hypertension Discharge Goals Goal(s): Decrease discomfort, Improve function, Diagnostic testing, Therapeutic intervention Activity Recommendations Activity Limitations: resume your previous activity . Instructions / Follow-Up Instructions / Follow-Up Please follow-up with Dr. Zendejas on October 21 at 9:05AM * You will now be taking Revatio; 5mg three times a day * You will be prescribed Aldactone twice daily * You will also take potassium supplements - please have your primary care doctor recheck your potassium level as an outpatient and stop this medication if we need to * Your furosemide should now be taken only as needed if there is worsening swelling of the legs or worsening shortness of breath; you do not need to take this daily * You will require 3L of oxygen when you are walking around; please follow-up with your casting repairer for adjustments of this * You can continue pulmonary rehab after seeing pulmonology Call your Primary Care doctor if any of the following symptoms or problems start or get worse: * Shortness of breath or difficulty breathing * Wake up at night short of breath * Chest pain * Cough * Swelling of your hands, feet, or legs * More fatigued or tired with your normal activity * Palpitations - sudden fast heart beats WEIGHT * Weigh yourself every morning after using the bathroom. * Use the same scale. * Wear the same amount of clothing. * Write your weight down on a chart. * Call your Primary Care doctor if you gain more than 2-3 pounds in 1-2 days. MEDICATIONS * Use this discharge instruction sheet for medication instructions. * Take your medications at the time your doctor ordered. * Do not skip a dose of your medicines. * If you miss a dose of medicine, take it as soon as possible, but DO NOT DOUBLE A DOSE. * Read your medicine information when you get home. * Know all of the side effects of your medicine. If in doubt, ask your pharmacist * Call your Primary Care doctor's office if you have any side effects. * Be sure all of your doctors know what medicine and herbs you take (including cold, flu, and herbal medicine). Take the following with you to your follow-up doctor appointments: * Weight Chart * Medication List * List of questions Do not drink excessive alcohol, beer or wine. Current Hospital Diet Patient's current hospital diet: AHA Diet (Heart Healthy) Discharge Diet Recommended Diet: AHA Diet (Heart Healthy) Pending Studies Studies pending at discharge: no Medical Emergencies . Who to Call and When: Call 911 or go to the Emergency Room if: * If at any time you feel your situation is an emergency * You have tightness or pain in your chest that does not go away with rest or Nitroglycerin * You are very short of breath even with rest . Non-Emergent Contact Non-Emergency issues call your: Primary Care Provider, Evaporator . . "Provider Documentation" section prepared by Doc Peterson. .
--- NOTE | 2017-10-14 12:06 | Discharge Summary ---
Discharge Summary Date of Service Oct 14, 2017. Discharge Summary Admission Date: Oct 12, 2017 at 11:56 Discharge Date: Oct 14, 2017 Discharge Disposition: Home Principal Diagnosis: Pulmonary hypertension Obstructive Sleep Apnea Obesity Medication Reconciliation New Medications: Home O2 Therapy (Oxygen) Gas 3 LITERS NA PRN PRN for exertion for 30 Days, BTL Potassium Chloride (Klor-Con M20) 20 Meq Tabcr 20 MEQ PO DAILY for 15 Days, #15 TABS Sildenafil Citrate (Revatio) 20 Mg Tab 5 MG PO TID for 30 Days, #18 TAB 3 Refills Spironolactone (Spironolactone) 25 Mg Tab 12.5 MG PO BID for 30 Days, #30 TAB 2 Refills Changed Medications: Furosemide (Lasix) 20 Mg Tab 1 TAB PO DAILY PRN for edema for 30 Days, #30 TAB 1 Refill (Changed from: 90; 90 ) Continued Medications: Albuterol Hfa (Ventolin Hfa) 200 Puffs/55285 Mcg Aers 1-2 PUFFS INH Q6H PRN for Shortness of Breath Aspirin (Aspirin Ec) 81 Mg Tab 81 MG PO QAM Atorvastatin (Lipitor) 20 Mg Tab 20 MG PO DAILY, TAB Fluticasone Prop/Salmeterol (Advair Diskus 500-50 Mcg/Dose) 14 Puff/1 Inhaler Aerp 1 INHA INH BID Discontinued Medications: Amlodipine (Norvasc) 5 Mg Tab 2.5 MG PO DAILY for 30 Days, #15 TAB Admission Information HPI (per Admitting provider): 52 year old M with PMH of right heart failure and severe pulmonary hypertension which was last evaluated at [facility] in 04/2017, who was walking up the stairs when feeling lightheaded and fell down 9 steps. Patient believes that he may have loss consciousness for no more than 5 to 10 seconds because someone else a neighbor was present in the general area. Patient denies acute shortness of breath during that episode but notes that has has dyspnea on exertion that has been going on for months and worse when walking up the stairs. Patient denies chest pain or palpitations when he felt lightheaded and fell down. No preceding symptoms of aura or nausea or vomiting. Patient denies changes in usual urination or bowel movements. He takes Lasix 80 mg daily for right heart failure and pulmonary hypertension and was found to be hypokalemic in the ED with serum potassium to be 2.7. Patient received IV fluids and IV potassium by ED provider. Patient did arrive with head in dressing for minor injuries but no laceration repair needed and scans of head /face/ neck without fractures CT HEAD: No evidence of intracranial hemorrhage, mass, or shift in midline structure. Moderate cerebral volume loss. Possible calcified meningioma along the inner table of the left frontal bone. Scalp hematoma overlying the left frontal bone. No evidence of calvarial fracture. CT FACIAL: No evidence of facial fracture. Small mucoceles in the maxillary sinus. CT C SPINE: No evidence of fracture or subluxation. There is mild multilevel cervical spondylosis. Straightening of the cervical spine which may be related to patient positioning versus muscle spasm. Patient placed under observation on telemetry service by hospitalist medicine physician. Physical Exam (per Admitting): General Appearance: no apparent distress, + obese Head: normocephalic, + pertinent finding (gauze dressing on the head) Eyes: normal inspection, EOMI, sclerae normal ENT: normal ENT inspection, hearing grossly normal, pharynx normal Neck: supple, no JVD, trachea midline Respiratory/Chest: chest non-tender, lungs clear, normal breath sounds, no respiratory distress, no accessory muscle use Cardiovascular: regular rate, rhythm, no edema, no JVD, normal peripheral pulses Abdomen/GI: normal bowel sounds, non tender, soft, no organomegaly, no pulsatile mass Back: normal inspection, no muscle spasm, normal range of motion Extremities/Musculoskelatal: normal inspection, no calf tenderness, normal capillary refill, no pedal edema, normal range of motion, non-tender Neurologic/Psych: international representative II-XII nml as tested, no motor/sensory deficits, alert , normal mood/affect, oriented x 3 Skin: warm/dry Hospital Course This is a 52 year old male with a PMH of morbid obesity, obstructive sleep apnea with nocturnal CPAP use, R heart failure, severe pulmonary hypertension - presents with shortness of breath as well as lightheadedness and a fall Severe Pulmonary HTN R Ventricular Systolic Dysfunction 10/14 - plan is to continue Aldactone and Revatio - Lasix PRN for lower extremity edema - secondary to ERICA and morbid obesity/hypoventilation - two step pending - likely d/c home today 10/13 - secondary to ERICA and morbid obesity - started on Aldactone as per cardiology - started on Revatio as per cardiology - monitor electrolytes - will obtain a two step in the AM - Lasix as needed for edema - continue CPAP nocturnally - outpatient pulmonary and cardiology - continued outpatient pulmonary rehab Syncope - patient presented with a fall; no acute fractures - this was likely secondary to his severe pulmonary hypertension - continue PT/OT - may need oxygen with ambulation to prevent hypoxia Hypokalemia - continue supplementing - currently on Aldactone - Lasix will now be PRN as per cardiology - monitor and may still need K supplementation Obstructive Sleep Apnea - nocturnal CPAP - outpatient pulmonology follow-up HTN - blood pressure is stable - stop amlodipine - continue diuretics as outpatient Asthma - continue home inhalers - outpatient PFTs DVT ppx - ambulation, SCDs FULL CODE plan for d/c on 10/14 if symptoms improve two step on 10/14 Total time spent on discharge = 40 minutes This includes examination of the patient, discharge planning, medication reconciliation, and communication with other providers. Discharge Instructions Please follow-up with Dr. Zendejas on October 21 at 9:05AM * You will now be taking Revatio; 5mg three times a day * You will be prescribed Aldactone twice daily * You will also take potassium supplements - please have your primary care doctor recheck your potassium level as an outpatient and stop this medication if we need to * Your furosemide should now be taken only as needed if there is worsening swelling of the legs or worsening shortness of breath; you do not need to take this daily * You will require 3L of oxygen when you are walking around; please follow-up with your flat knitter for adjustments of this * You can continue pulmonary rehab after seeing pulmonology
[2017-10-14 14:28] VITALS: BP 115/76; PULSE 76; TEMP 36.5; O2SAT 96
--- NOTE | 2017-10-15 07:29 | EDITING REQUIRED CODING QUERY ---
CONGESTIVE HEART FAILURE To Promote full compliance with coding requirements relating to patient care, physician participation is requested in all cases of model maker plastic uncertainty. Please assist us with the following questions. A diagnosis of Congestive Heart Failure is documented in the patient's medical record. To accurately code this diagnosis and to compare patient severity, we ask that you specify the type of heart failure by placing an X within the parenthesis (x). SYSTOLIC HEART FAILURE ( ) Acute ( ) Chronic ( ) Acute on Chronic ( ) Rheumatic ( ) Unknown DIASTOLIC HEART FAILURE ( ) Acute ( ) Chronic ( ) Acute on Chronic ( ) Rheumatic ( ) Unknown COMBINED SYSTOLIC AND DIASTOLIC HEART FAILURE ( ) Acute ( ) Chronic ( ) Acute on Chronic ( ) Rheumatic ( ) Unknown Was the CHF Present On Admission? Please check the appropriate box: ( X ) Present on Admission ( ) Not Present On Admission ( ) Clinically undetermined Thank you Heather Reynolds
== END 2017-10-14 15:26 | disposition home or self-care (01) | DRG 315 ==
LOC: EDBD 00:29 → C.EDB 00:31 → ENRESERV 02:29 → C.2T 02:35 → OBSVTOIN 10-12 11:56
PROVIDERS: ADMIT Hospitalist; ATTEND Family Medicine
DX: I27.29 Other secondary pulmonary hypertension (principal); Z68.41 Body mass index [BMI] 40.0-44.9, adult; E66.2 Morbid (severe) obesity with alveolar hypoventilation; S00.03XA Contusion of scalp, initial encounter; I95.1 Orthostatic hypotension; E87.6 Hypokalemia; T50.1X5A Adverse effect of loop [high-ceiling] diuretics, initial encounter; E86.0 Dehydration; I11.0 Hypertensive heart disease with heart failure; I50.9 Heart failure, unspecified; D32.0 Benign neoplasm of cerebral meninges; J34.1 Cyst and mucocele of nose and nasal sinus; M47.812 Spondylosis without myelopathy or radiculopathy, cervical region; J45.909 Unspecified asthma, uncomplicated; E78.5 Hyperlipidemia, unspecified; Z79.899 Other long term (current) drug therapy; Z79.82 Long term (current) use of aspirin; Z83.3 Family history of diabetes mellitus; Z82.49 Family history of ischemic heart disease and other diseases of the circulatory system; Z80.1 Family history of malignant neoplasm of trachea, bronchus and lung; W10.9XXA Fall (on) (from) unspecified stairs and steps, initial encounter; Y93.01 Activity, walking, marching and hiking; Y92.009 Unspecified place in unspecified non-institutional (private) residence as the place of occurrence of the external cause; Y99.8 Other external cause status

== ENCOUNTER → 2017-12-01 | Outpatient (CLI) | payer OTHER ==
[~2017-12-01] MED LIST changes: -LISI20TA3 PO; +MCRK20 PO; +OXGN; +SILD1TAB25 PO; +SPR25 PO
== END | disposition home or self-care (01) ==
LOC: C.NEUR 20:00
PROVIDERS: ATTEND Internal Medicine
DX: G47.33 Obstructive sleep apnea (adult) (pediatric) (principal); M35.8 Other specified systemic involvement of connective tissue

== ENCOUNTER 2019-03-15 15:27 | Inpatient (IN) ==
[2019-03-15] MEDS ORDERED: ONDANSETRON INJ 2 MG/ML 2 ML VIAL IV PRN (15:31)
[2019-03-15] MEDS ORDERED: ACETAMINOPHEN 325 MG TAB PO PRN (15:31)
[2019-03-15] MEDS ORDERED: POLYETHYLENE (MIRALAX) 17 GM PACK PO PRN (15:31)
[2019-03-15 15:54] LABS: Basophils # (auto) 0.03 K/uL (0-0.2); Basophils % (auto) 0.2 %; Eosinophils # (auto) 0.46 K/uL (0-0.5); Eosinophils % (auto) 3.8 %; Hematocrit (blood only) 40.6 % (42-52); Hemoglobin 14.3 g/dL (14.0-18.0); Immature Granulocytes # (auto) 0.02 K/uL (0.00-0.02); Immature Granulocytes % (auto) 0.2 %; Lymphocytes # (auto) 1.34 K/uL (1.2-3.4); Lymphocytes % (auto) 11.1 %; Mean Corpuscular Hemoglobin 32.5 pg (25-34); Mean Corpuscular Hgb Conc 35.2 g/dL (32-36); Mean Corpuscular Volume 92.3 fL (80-100); Mean Platelet Volume 9.8 fL (7.4-10.4); Monocytes # (auto) 0.89 K/uL (0.11-0.59); Monocytes % (auto) 7.4 %; Neutrophils # (auto) 9.34 K/uL (1.4-6.5); Neutrophils % (auto) 77.3 %; Platelet Count 154 K/uL (130-400); RDW Coefficient of Variation 14.2 % (11.5-14.5); RDW Standard Deviation 48.1 fL (36.4-46.3); White Blood Count 12.08 K/uL (4.8-10.8)
--- NOTE | 2019-03-15 15:59 | History & Physical Report ---
Date of Service March 15, 2019 Assessment & Plan (1) Cellulitis of plantar aspect of foot: (2) Neuropathic ulcer of left foot: This is a 54yo M with a PMH of pulmonary HTN, right sided heart failure, CKD III, ERICA on CPAP (with 2L O2 HS), asthma and peripheral neuropathy who presents as a direct admission from wound care clinic with left plantar cellulitis. -Afebrile, mild leukocytosis of 12.08 -Small wound on plantar aspect of left foot debrided by Dr. Lindsay. Direct admission for IV antibiotics and wound vac placement -Wound culture pending -Starting vanc and rocephin empirically. ID consulted -Wound care provider and nurse consulted (3) Chronic respiratory failure with hypoxia: In setting of pulm HTN -3L NC O2 when active, 2L NC O2 HS (4) Right heart failure: In setting of pulmonary HTN -Continue home dose Lasix, spironolactone -CXR pending (5) Pulmonary HTN: 2/2 ERICA -Continue Adcirca, Letairis (6) CKD (chronic kidney disease), stage III: Kidney function at baseline -Monitor with daily BMP (7) Asthma, moderate persistent: Stable. Continue Advair, albuterol PRN (8) ERICA (obstructive sleep apnea): CPAP HS with 2L NC O2 DVT Ppx: SQ Lovenox Code status: FULL PCP: Aashish Dispo: Admitted to med/surg. Plan to return home once medically stable. Patient seen in collaboration with Dr. Low. Please see addendum. History of Present Illness Chief Complaint: left foot wound Primary Care Provider: Bill Zendejas, This is a 54yo M with a PMH of pulmonary HTN, right sided heart failure, CKD III, ERICA on CPAP (with 2L O2 HS), asthma and peripheral neuropathy who presents as a direct admission from wound care clinic with left plantar cellulitis. Patient recently established at wound care clinic and today was first visit. Noticed wound on bottom of left foot 2 months ago but it was calloused. Recently noted swelling and warmth of left foot. Has peripheral neuropathy with reduced feeling of plantar aspects of bilateral feet. Has noted some drainage from wound since debridement in clinic today by Dr. Lindsay. Was sent for IV antibiotics and wound vac placement. Wound care to follow along inpatient. Has history of left lesser toe amputation. No known h/o MRSA. Denies fever, chills, headache, lightheadedness, visual changes, chest pain, palpitations, shortness of breath, abdominal pain, nausea, vomiting, dysuria, constipation or diarrhea. Allergies Allergy/AdvReac Type Severity Reaction Status Date / Time No Known Allergies Allergy Unverified 03/15/19 13:33 Home Medications Home Medications Medication Instructions Recorded Confirmed Type Oxygen Home #1 ea 03/15/19 03/15/19 History albuterol sulfate 2 puff INHALATION QID PRN 03/15/19 03/15/19 History allopurinol 300 mg PO HS 03/15/19 03/15/19 History ambrisentan [Letairis] 10 mg PO HS 03/15/19 03/15/19 History aspirin 81 mg tablet,delayed 81 mg PO DAILY 03/15/19 03/15/19 History release fluticasone 500 mcg-salmeterol 50 1 puffs INH BID 03/15/19 03/15/19 History mcg/dose blistr powdr for inhalation furosemide 80 mg PO BID 03/15/19 03/15/19 History montelukast [Singulair] 10 mg PO PM 03/15/19 03/15/19 History potassium chloride ER 20 mEq 20 meq PO DAILY 03/15/19 03/15/19 History tablet,extended release spironolactone 25 mg tablet 25 mg PO BID tab 03/15/19 03/15/19 History tadalafil 40 mg PO HS 03/15/19 03/15/19 History triamcinolone acetonide 1 applic TOPICAL DAILY 03/15/19 03/15/19 History Past Med/Surg History Medical History CKD (chronic kidney disease), stage III (Chronic) Right heart failure (Chronic) ERICA (obstructive sleep apnea) (Chronic) HTN (hypertension) (Chronic) Pulmonary HTN (Chronic) Cor pulmonale, chronic (Chronic) Asthma, moderate persistent (Chronic) Chronic respiratory failure with hypoxia (Chronic) Dyslipidemia (Chronic) Psoriasis (Chronic) Cellulitis of plantar aspect of foot (Acute) Neuropathic ulcer of toe of right foot (Acute) Ulcer of left heel and midfoot (Acute) Acquired claw toe of left foot (Chronic) Acquired claw toe of right foot (Chronic) Neuropathy (Chronic) Obstructive sleep apnea (Chronic) Pulmonary hypertension (Chronic) Surgical History History of amputation of lesser toe of left foot (Resolved) Family History Other Dementia Diabetes Social History Preferred Language: Faroese Communication Ability: Effective Visual Impairment: No Limitations Hearing Ability: Normal Datapower Developer Required: No Beliefs That Will Affect Care: None marital status: Single Current Living Situation: Other Current Living Situation Comment: Three adults current occupational status: disabled Other Information That Helps Us Care for You: No Feels Safe at Home: Yes Safety Concerns: Feels Safe At This Time Smoking Status: Never smoker Do You Dip or Chew Tobacco: No ; Second Hand Exposure: Yes ; Tobacco Cessation Education Requested by Patient: No Hx Alcohol Use: No Hx Substance Use: No Childhood Exposure to Second-Hand Smoke: Yes Review of Systems Review of Systems: At least ten systems reviewed and negative except as noted in the HPI. Physical Exam Physical Exam: General Appearance: WD/WN, no apparent distress, resting comfortably in bedside chair Head: normocephalic, atraumatic Eyes: normal inspection, PERRL, EOMI ENT: hearing grossly normal, pharynx normal (moist mucous membanes) Neck: supple, no JVD, no adenopathy Respiratory/Chest: lungs clear to auscultation. No wheezes, rales or rhonchi. No respiratory distress or accessory muscle use Cardiovascular: regular rate, rhythm, no murmur, normal peripheral pulses, 2+ BLE edema Abdomen/GI: normal bowel sounds, soft, non-tender to palpation Extremities/Musculoskelatal: normal inspection, no calf tenderness, normal capillary refill Neurologic/Psych: alert, normal mood/affect, oriented x 3 Skin: normal color, warm/dry. Left plantar foot with nickel-sized lesion that is well circumscribed with some undermining and overlying slough. Periwound area with thick callous. Erythema, edema and warmth extending to dorsum of left foot. Results & Data Laboratory Results Short CBC 03/15/19 Range/Units 15:43 WBC 12.08 H (4.8-10.8) K/uL Hgb 14.3 (14.0-18.0) g/dL Hct 40.6 L (42-52) % Plt Count 154 (130-400) K/uL BMP 03/15/19 15:43 Sodium 139 Potassium 4.0 Chloride 105 Carbon Dioxide 28 BUN 15 Creatinine 1.31 Glucose 86 Calcium 9.1 Liver Function 03/15/19 Range/Units 15:43 Total Bilirubin 1.6 H (0.2-1) mg/dl AST 17 (15-37) U/L ALT 20 (12-78) U/L Alkaline Phosphatase 78 (45-117) U/L Albumin 4.0 (3.4-5.0) gm/dl Diagnostic Findings CXR: pending ECG Additional Comments: EKG pending Supervising Physician Co-Signing Physician Notes Agreed with Silvana MOMIN exam, assessment and plan. 54yo M with a PMH of pulmonary HTN, right sided heart failure, CKD III, ERICA on CPAP (with 2L O2 HS), asthma and peripheral neuropathy who sent as a direct admission from wound care clinic for left plantar wound infection. Pt said that wound started as a calyx that was removed. He said that in the last 3 months, wound got worst. He said that left foot was warm, erythematous with increase purulent drainage and foul odor. He has been applied Neosporin ointment with no relief. He was sent by Dr. Lindsay from the wound clinic for IV antibiotic and possible putting an irrigating wound vac while inpatient. Will follow wound cx. Will get an xray of L foot to r/o any evidence for osteomyelitis. Will check ESR in am. Will start on Vanco and Rocephin for now. Will consult ID. Continue daily wound care. Consult wound care provider. Will continue monitor closely. MD Maranda
[2019-03-15 16:15] LABS: Alanine Aminotransferase 20 U/L (12-78); Aspartate Aminotransferase 17 U/L (15-37); BUN Creatinine Ratio 11.3 (10-20); Blood Urea Nitrogen 15 mg/dl (7-18); Calcium 9.1 mg/dl (8.5-10.1); Carbon Dioxide 28 mmol/L (21-32); Chloride 105 mmol/L (98-107); Est GFR (Non-African American) 61.3; Glucose 86 mg/dl (70-99); Sodium 139 mmol/L (136-145)
[2019-03-15 16:18] LABS: Albumin Globulin Ratio 1.4 (0.9-2); Alkaline Phosphatase 78 U/L (45-117); Bilirubin,Total 1.6 mg/dl (0.2-1); Globulin 2.8 gm/dl (2.5-4.0); Total Protein 6.8 gm/dl (6.4-8.2)
[2019-03-15] MEDS ORDERED: CONSULT PHARMACY STA (17:03)
--- NOTE | 2019-03-15 17:45 | XRay Report ---
XR chest 1V portable HISTORY: 54 years-old Male admission preoperative exam. No acute chest complaints COMPARISON: Chest radiograph 10/10/2017 TECHNIQUE: Portable AP view of the chest FINDINGS: Cardiac silhouette is enlarged, unchanged. No pneumothorax, large pleural effusion or overt pulmonary edema. Chronic blunting of the right costophrenic angle with mild chronic interstitial opacities of the left lung base. Degenerative changes of the shoulders and spine. IMPRESSION: No acute process. The above report was generated using voice recognition software. It may contain grammatical, syntax o r spelling errors. Electronically signed by: Alexis Wayne M.D. 03/15/2019 5:44 PM
[2019-03-15] MEDS ORDERED: VANCOMYCIN CONSULT ACTIVE PRN (18:34)
[2019-03-15 19:25] LABS: INR 1.1 (0.9-1.1); Partial Thromboplastin Ratio 1.1; Partial Thromboplastin Time 28.9 Seconds (21.0-31.0); Prothrombin Time 11.4 Seconds (9.0-12.0)
[2019-03-15] MEDS: cefTRIAXone SODIUM 2,000 MG in DEXTROSE 5% 50 ML IV SCH (19:36)
[2019-03-15] MEDS: FUROSEMIDE 40 MG TAB PO SCH (19:39)
[2019-03-15] MEDS: SPIRONOLACTONE 25 MG TAB PO SCH (19:39)
[2019-03-15] MEDS ORDERED: VANCOMYCIN HCL 2,750 MG in SODIUM CHLORIDE 0.9% 500 ML IV ONE (20:00)
--- NOTE | 2019-03-15 20:10 | XRay Report ---
XR foot LT 2V HISTORY: 54 years-old Male Left plantar wound infected chronic left foot pain with plantar wound inf ection COMPARISON: None available TECHNIQUE: 3 views of the left foot FINDINGS: Moderate soft tissue swelling of the lower leg, foot and ankle. 2.2 cm soft tissue defect of the plan tar tissues at the level of the metatarsal-phalangeal joints is noted. Postoperative changes from concetta or amputation of the second digit at the level of the metatarsal phalangeal joint. Ossifications in t he region of the second metatarsal are likely posttraumatic/heterotopic in nature. Moderate degenerat arnav changes of interphalangeal joints. No acute fracture, dislocation or definite bony erosive change s to suggest acute osteomyelitis. Cortical thickening about the fifth proximal phalanx just healed fr acture deformity. Marginal spurring of the calcaneus. IMPRESSION: 1. Diffuse moderate soft tissue swelling without acute fracture or dislocation. 2. Soft tissue ulcer of the plantar foot at the level of the metatarsal phalangeal joints. No definit e bony erosive changes to suggest acute osteomyelitis. 3. Chronic postoperative findings of the second digit. The above report was generated using voice recognition software. It may contain grammatical, syntax o r spelling errors. Electronically signed by: Alexis Wayne M.D. 03/15/2019 8:09 PM
[2019-03-15] MEDS: ALLOPURINOL 300 MG TAB PO SCH (20:14)
[2019-03-15] MEDS: FLUTICASONE/SALMETEROL (ADVAIR) 500/50 INH 14 PUFF INH SCH (20:14)
[2019-03-15] MEDS: MONTELUKAST SODIUM 10 MG TABLET PO SCH (20:15)
[2019-03-15] MEDS: ENOXAPARIN INJ 40 MG/0.4 ML SYR SQ SCH (21:52)
[2019-03-16 07:34] LABS: Hematocrit (blood only) 37.6 % (42-52); Hemoglobin 13.1 g/dL (14.0-18.0); Mean Corpuscular Hemoglobin 32.3 pg (25-34); Mean Corpuscular Hgb Conc 34.8 g/dL (32-36); Mean Corpuscular Volume 92.6 fL (80-100); Platelet Count 138 K/uL (130-400); RDW Coefficient of Variation 14.3 % (11.5-14.5); RDW Standard Deviation 48.4 fL (36.4-46.3); Red Blood Count 4.06 M/uL (4.7-6.1); White Blood Count 13.27 K/uL (4.8-10.8)
[2019-03-16 08:05] LABS: BUN Creatinine Ratio 11.2 (10-20); Calcium 8.7 mg/dl (8.5-10.1); Est GFR (African American) 62.8; Est GFR (Non-African American) 54.2; Potassium 3.8 mmol/L (3.5-5.1)
[2019-03-16] MEDS: VANCOMYCIN HCL 1,500 MG in SODIUM CHLORIDE 0.9% 500 ML IV SCH ×2 (08:22→19:45)
[2019-03-16] MEDS: SPIRONOLACTONE 25 MG TAB PO SCH ×2 (08:22→17:10)
[2019-03-16] MEDS: FLUTICASONE/SALMETEROL (ADVAIR) 500/50 INH 14 PUFF INH SCH ×2 (08:22→21:12)
[2019-03-16] MEDS: FUROSEMIDE 40 MG TAB PO SCH ×2 (08:23→17:09)
[2019-03-16] MEDS: TRIAMCINOLONE ACET 0.1% CR 15 GM TUBE TOP SCH (08:23)
[2019-03-16] MEDS: ASPIRIN 81 MG ECTAB PO SCH (08:23)
[2019-03-16] MEDS: POTASSIUM CHLORIDE 20 MEQ TABCR PO SCH (08:23)
--- NOTE | 2019-03-16 11:38 | Infectious Disease Consult ---
Date of Consultation March 16, 2019 Assessment & Plan (1) Cellulitis of plantar aspect of foot: continue abx pending additional cultures. will likely need prolonged course and follow in wound center. History of Present Illness Attending Physician: Cindy Marshall DO pt admitted from wound center due to increased pain, swelling warmth redness right foot. had initial visit yesterday, culture obtained, pending, admitted for IV abx and vac. vac placed this am. pt denies pain in foot. x ray with no osteo but 2.2 cm defect noted. no f/c. placed on ctx and vanco and is tolerating well. wbc 13, creat 1.4 cxr negative, blood and wound culture pending. wound present for several months. tmax 38.2 currenlty afebrile. Allergies Allergy/AdvReac Type Severity Reaction Status Date / Time No Known Allergies Allergy Unverified 03/15/19 13:33 Home Medications Home Medications Medication Instructions Recorded Confirmed Type Oxygen Home #1 ea 03/15/19 03/15/19 History albuterol sulfate 2 puff INHALATION QID PRN 03/15/19 03/15/19 History allopurinol 300 mg PO HS 03/15/19 03/15/19 History ambrisentan [Letairis] 10 mg PO HS 03/15/19 03/15/19 History aspirin 81 mg tablet,delayed 81 mg PO DAILY 03/15/19 03/15/19 History release fluticasone 500 mcg-salmeterol 50 1 puffs INH BID 03/15/19 03/15/19 History mcg/dose blistr powdr for inhalation furosemide 80 mg PO BID 03/15/19 03/15/19 History montelukast [Singulair] 10 mg PO PM 03/15/19 03/15/19 History potassium chloride ER 20 mEq 20 meq PO DAILY 03/15/19 03/15/19 History tablet,extended release spironolactone 25 mg tablet 25 mg PO BID tab 03/15/19 03/15/19 History tadalafil 40 mg PO HS 03/15/19 03/15/19 History triamcinolone acetonide 1 applic TOPICAL DAILY 03/15/19 03/15/19 History Patient History Medical History CKD (chronic kidney disease), stage III (Chronic) Right heart failure (Chronic) ERICA (obstructive sleep apnea) (Chronic) HTN (hypertension) (Chronic) Pulmonary HTN (Chronic) Cor pulmonale, chronic (Chronic) Asthma, moderate persistent (Chronic) Chronic respiratory failure with hypoxia (Chronic) Dyslipidemia (Chronic) Psoriasis (Chronic) Cellulitis of plantar aspect of foot (Acute) Neuropathic ulcer of toe of right foot (Acute) Ulcer of left heel and midfoot (Acute) Acquired claw toe of left foot (Chronic) Acquired claw toe of right foot (Chronic) Neuropathy (Chronic) Obstructive sleep apnea (Chronic) Pulmonary hypertension (Chronic) Surgical History History of amputation of lesser toe of left foot (Resolved) Family History Other Dementia Diabetes Social History Preferred Language: Croatian Communication Ability: Effective Visual Impairment: No Limitations Hearing Ability: Normal Refrigeration Service Technician Required: No Beliefs That Will Affect Care: None marital status: Life Partner Current Living Situation: Other Current Living Situation Comment: Three adults current occupational status: disabled Other Information That Helps Us Care for You: No Feels Safe at Home: Yes Safety Concerns: Feels Safe At This Time Smoking Status: Never smoker Do You Dip or Chew Tobacco: No ; Second Hand Exposure: Yes ; Tobacco Cessation Education Requested by Patient: No Hx Alcohol Use: No Hx Substance Use: No Childhood Exposure to Second-Hand Smoke: Yes Review of Systems Review of Systems: All systems reviewed & are unremarkable except as noted in HPI & below Physical Exam Constitutional: WD/WN, vitals as above Eyes: PERRL, conjunctivae normal, anicteric sclerae ENMT: external ear and nose normal, oropharynx normal Neck: normal visual inspection Respiratory: normal respiratory effort, lungs clear to auscultation Cardiovascular: RRR, no murmur, no edema Gastrointestinal (Abdomen): normal bowel sounds, soft, nontender, no hepatosplenomegaly Musculoskeletal: no cyanosis or clubbing, extremities motor strength 5/5 Skin: normal turgor and + wound (rle vac in place, warm, edema, erythema); no rashes Psychiatric: A+Ox3, euthymic affect Results & Data Vital Signs (Past 12 Hours) Vital Signs Temp Pulse Resp BP Pulse Ox 03/16/19 07:50 37.1 C 71 20 115/69 93 PG Care Time/CCT Total # of Minutes Spent Total Time Spent with Patient: Total time spent is greater than 50% in coordination of care (as documented) at patient's floor/unit and/or counseling patient:
--- NOTE | 2019-03-16 11:40 | Hospitalist Progress Note ---
Date of Service March 16, 2019 Assessment & Plan (1) Cellulitis of plantar aspect of foot: Neuropathic ulcer on the plantar aspect of the left foot, which was unroofed and debrided at the wound care center yesterday. Left foot was warm and erythematous with purulent drainage and a foul odor. Wound culture was obtained. The patient was directly admitted for IV antibiotics and a wound vac. Patient is appearing very well and denying pain today. Continue daily wound care. Continue vancomycin and Rocephin pending culture results. Defer to ID and wound care for de-escalation of antibiotics. (2) Neuropathic ulcer of left foot: cont supportive care. NWB on this foot until definitive management by Wound care provider is in place and we get good activity instructions from Dr. Lindsay. (3) Chronic respiratory failure with hypoxia: 2/2 pulmonary HTN. Chronic, stable. -3L NC O2 when active, 2L NC O2 HS (4) Right heart failure: Chronic, stable. No new symptoms. -Continue home dose Lasix, spironolactone (5) Pulmonary HTN: 2/2 ERICA -Continue Adcirca, Letairis (6) ERICA (obstructive sleep apnea): CPAP HS with 2L NC O2 (7) CKD (chronic kidney disease), stage III: Kidney function at baseline -Monitor with daily BMP (8) Asthma, moderate persistent: Stable. Continue Advair, albuterol PRN (9) DVT prophylaxis: Lovenox Full Dispo-pending culture results and choice of antibiotics. Cindy Marshall DO [facility] Hospitalist Subjective 54-year-old man admitted from wound center secondary to increased pain swelling warmth and redness of the right foot. Patient denies any pain and is otherwise feeling well. He denies any history of fevers or chills but said he felt somewhat cold yesterday. He denies any fevers or chills overnight. He was admitted and placed on Rocephin and vancomycin and is tolerating these well. Infectious disease was consulted. The wound has been present for several months and the patient states that he recently picked at a callus. Yesterday this area was debrided in the wound center. Review of Systems Review of Systems: All systems reviewed & are unremarkable except as noted in HPI & below Physical Exam Physical Exam: CONSTITUTIONAL: WNWD, vitals as above, generally well- appearing EYES: EOMI bilaterally, PERRL, normal conjunctivae, no scleral icterus ENT: MMM RESPIRATORY: clear to auscultation bilaterally, no crackles, rales or wheezes, normal respiratory effort CARDIOVASCULAR: regular rate and rhythm, S1 and 2 heard without murmurs, gallops or rubs, no JVD, no peripheral edema GASTROINTESTINAL: soft, nontender, nondistended MUSCULOSKELETAL: strength 5/5 throughout, head is normocephalic and atraumatic SKIN: warm and dry, wound was wrapped with a gauze that was c/d/i. Sensation present and equal in feet bilaterally. NEUROLOGIC: CN 2-12 grossly intact, normal cognition, no gross focal deficits. Results & Data Vital Signs (Past 12 Hours) Vital Signs Temp Pulse Resp BP Pulse Ox 03/16/19 07:50 37.1 C 71 20 115/69 93 Laboratory Results Short CBC 03/15/19 03/16/19 Range/Units 15:43 07:17 WBC 12.08 H 13.27 H (4.8-10.8) K/uL Hgb 14.3 13.1 L (14.0-18.0) g/dL Hct 40.6 L 37.6 L (42-52) % Plt Count 154 138 (130-400) K/uL BMP 03/15/19 03/16/19 15:43 07:17 Sodium 139 137 Potassium 4.0 3.8 Chloride 105 105 Carbon Dioxide 28 26 BUN 15 16 Creatinine 1.31 1.45 H Glucose 86 95 Calcium 9.1 8.7 Liver Function 03/15/19 Range/Units 15:43 Total Bilirubin 1.6 H (0.2-1) mg/dl AST 17 (15-37) U/L ALT 20 (12-78) U/L Alkaline Phosphatase 78 (45-117) U/L Albumin 4.0 (3.4-5.0) gm/dl Diagnostic Findings XR foot LT 2V HISTORY: 54 years-old Male Left plantar wound infected chronic left foot pain with plantar wound infection COMPARISON: None available TECHNIQUE: 3 views of the left foot FINDINGS: Moderate soft tissue swelling of the lower leg, foot and ankle. 2.2 cm soft tissue defect of the plantar tissues at the level of the metatarsal-phalangeal joints is noted. Postoperative changes from prior amputation of the second digit at the level of the metatarsal phalangeal joint. Ossifications in the region of the second metatarsal are likely posttraumatic/heterotopic in nature. Moderate degenerative changes of interphalangeal joints. No acute fracture, dislocation or definite bony erosive changes to suggest acute osteomyelitis. Cortical thickening about the fifth proximal phalanx just healed fracture deformity. Marginal spurring of the calcaneus. IMPRESSION: 1. Diffuse moderate soft tissue swelling without acute fracture or dislocation. 2. Soft tissue ulcer of the plantar foot at the level of the metatarsal phalangeal joints. No definite bony erosive changes to suggest acute osteomyelitis. 3. Chronic postoperative findings of the second digit. XR chest 1V portable HISTORY: 54 years-old Male admission preoperative exam. No acute chest complaints COMPARISON: Chest radiograph 10/10/2017 TECHNIQUE: Portable AP view of the chest FINDINGS: Cardiac silhouette is enlarged, unchanged. No pneumothorax, large pleural effusion or overt pulmonary edema. Chronic blunting of the right costophrenic angle with mild chronic interstitial opacities of the left lung base. Degenerative changes of the shoulders and spine. IMPRESSION: No acute process. Medications Administered Current Inpatient Medications Acetaminophen (Tylenol) 650 mg PO Q4H PRN PRN Reason: pain/fever Stop: 04/14/19 15:30 Last Admin: 03/15/19 23:34 Dose: 650 mg Documented by: Allopurinol (Zyloprim) 300 mg PO HS DIAMANTE Stop: 04/14/19 20:59 Last Admin: 03/15/19 20:14 Dose: 300 mg Documented by: Ambrisentan (Letairis) 1 ea PO HS DIAMANTE Stop: 04/15/19 20:59 Aspirin (Ecotrin Ectab) 81 mg PO DAILY DAIMANTE Stop: 04/15/19 08:59 Last Admin: 03/16/19 08:23 Dose: 81 mg Documented by: Enoxaparin Sodium (Lovenox) 40 mg SQ Q24H DIAMANTE Stop: 04/14/19 20:59 Last Admin: 03/15/19 21:52 Dose: 40 mg Documented by: Furosemide (Lasix) 80 mg PO BID17 DIAMANTE Stop: 04/14/19 17:44 Last Admin: 03/16/19 08:23 Dose: 80 mg Documented by: Ceftriaxone Sodium 2,000 mg/ (Dextrose) 70 mls @ 140 mls/hr IV Q24H DIAMANTE Stop: 03/25/19 18:59 Last Infusion: 03/15/19 20:06 Dose: Infused Documented by: Vancomycin HCl 1,500 mg/ (Sodium Chloride) 530 mls @ 200 mls/hr IV Q12H DIAMANTE Stop: 03/26/19 07:59 Last Infusion: 03/16/19 11:01 Dose: Infused Documented by: Miscellaneous (Order Awaiting Action) 1 ea N/A QS DIAMANTE Stop: 04/14/19 18:39 Last Admin: 03/16/19 08:24 Dose: Not Given Documented by: Miscellaneous (Order Awaiting Action) 1 ea N/A QS DIAMANTE Stop: 04/14/19 18:39 Last Admin: 03/16/19 08:22 Dose: Not Given Documented by: Miscellaneous Information (Consult) 1 ea N/A UD PRN PRN Reason: Consult Stop: 04/14/19 18:33 Montelukast Sodium (Singulair) 10 mg PO PM DIAMANTE Stop: 04/14/19 20:59 Last Admin: 03/15/19 20:15 Dose: 10 mg Documented by: Tadalafil (Adcirca) (20 Mg Tab) 2 ea PO HS DIAMANTE Stop: 04/15/19 20:59 Ondansetron HCl (Zofran) 4 mg IV Q6H PRN PRN Reason: Nausea Stop: 04/14/19 15:30 Polyethylene Glycol (Miralax Powder Packet) 17 gm PO DAILY PRN PRN Reason: Constipation Stop: 04/14/19 15:30 Potassium Chloride (Klor-Con M20) 20 meq PO DAILY DIAMANTE Stop: 04/15/19 08:59 Last Admin: 03/16/19 08:23 Dose: 20 meq Documented by: Fluticasone/Salmeterol (Advair Diskus 500/50) 1 puffs INH BID DIAMANTE Stop: 04/14/19 20:59 Last Admin: 03/16/19 08:22 Dose: 1 puffs Documented by: Spironolactone (Aldactone) 25 mg PO BID17 [facility] Stop: 04/14/19 17:44 Last Admin: 03/16/19 08:22 Dose: 25 mg Documented by: Triamcinolone Acetonide (Kenalog 0.1%) 1 appln TOP DAILY [facility] Stop: 04/15/19 08:59 Last Admin: 03/16/19 08:23 Dose: 1 appln Documented by:
[2019-03-16] MEDS: cefTRIAXone SODIUM 2,000 MG in DEXTROSE 5% 50 ML IV SCH (19:10)
[2019-03-16] MEDS: ALLOPURINOL 300 MG TAB PO SCH (21:13)
[2019-03-16] MEDS: MONTELUKAST SODIUM 10 MG TABLET PO SCH (21:13)
[2019-03-16] MEDS: TADALAFIL 20 MG PO SCH (21:13)
[2019-03-16] MEDS: AMBRISENTAN 10 MG TAB PO SCH (21:14)
[2019-03-16] MEDS: ENOXAPARIN INJ 40 MG/0.4 ML SYR SQ SCH (21:15)
[2019-03-17 07:29] LABS: Hemoglobin 12.4 g/dL (14.0-18.0); Mean Corpuscular Hemoglobin 31.6 pg (25-34); Mean Corpuscular Hgb Conc 34.4 g/dL (32-36); Mean Corpuscular Volume 91.6 fL (80-100); Mean Platelet Volume 10.2 fL (7.4-10.4); Platelet Count 111 K/uL (130-400); RDW Coefficient of Variation 14.2 % (11.5-14.5); RDW Standard Deviation 47.7 fL (36.4-46.3); Red Blood Count 3.93 M/uL (4.7-6.1); White Blood Count 6.77 K/uL (4.8-10.8)
[2019-03-17] MEDS ORDERED: VANCOMYCIN TROUGH ONE ×2 (07:30→19:30)
[2019-03-17 07:55] LABS: BUN Creatinine Ratio 11.7 (10-20); Calcium 8.4 mg/dl (8.5-10.1); Est GFR (African American) 66.7; Est GFR (Non-African American) 57.6; Potassium 3.5 mmol/L (3.5-5.1)
[2019-03-17] MEDS: FLUTICASONE/SALMETEROL (ADVAIR) 500/50 INH 14 PUFF INH SCH ×2 (08:00→20:31)
[2019-03-17] MEDS: ASPIRIN 81 MG ECTAB PO SCH (08:01)
[2019-03-17] MEDS: POTASSIUM CHLORIDE 20 MEQ TABCR PO SCH (08:01)
[2019-03-17] MEDS: TRIAMCINOLONE ACET 0.1% CR 15 GM TUBE TOP SCH (08:01)
[2019-03-17] MEDS: FUROSEMIDE 40 MG TAB PO SCH ×2 (08:01→18:02)
[2019-03-17] MEDS: SPIRONOLACTONE 25 MG TAB PO SCH ×2 (08:01→18:02)
[2019-03-17] MEDS: VANCOMYCIN HCL 1,500 MG in SODIUM CHLORIDE 0.9% 500 ML IV SCH (09:01)
--- NOTE | 2019-03-17 09:44 | Pharmacy Report ---
Pharmacy Abx Dose Short Note - Date of Service March 17, 2019 - Assessment & Plan Assessment * 54 year old M with cellulitis. Wound present for several months. Patient presented from wound center due to increased pain, swelling, warmth, and redness. * X ray with no osteo noted. * Patient is currently afebrile with normal WBC * Cultures - MRSA and alpha Strep isolated from foot wound culture 03/15 * Antibiotics - currently on ceftriaxone and vancomycin * Renal - SCr stable and at/near baseline Vancomycin * Goal vancomycin trough ~15 mcg/mL * Goal often 15-20 mcg/mL for MRSA, but since vancomycin MINI is only 1 mcg/mL and since this is cellulitis without bone/joint involvement, a target of ~15 mcg/mL is appropriate * Trough today 14.3 mcg/mL which is therapeutic, was drawn at/near steady state, and was obtained at an appropriate time as compared to previous and subsequent doses * Patient may have some accumulation of vancomycin without further change in dose 2nd BMI >35 kg/m2. Will therefore order repeat trough in 2 days Plan * Continue vancomycin 1500 mg IV q12h * Repeat trough 03/19 @ 0730 Pharmacy will continue to follow and will adjust dose/frequency as necessary. Thank you.
--- NOTE | 2019-03-17 14:21 | Infectious Disease Progress Nt ---
Date of Service March 17, 2019 Assessment & Plan (1) Cellulitis of plantar aspect of foot: will change abx to po doxy 100mg po bid. will need ongoing wound care/vac care. will plan to follow at wound center post d/c from hospital and can further adjust abx duration on outpatient basis, would suggest 30 day course of doxy to start and will plan to follow post d/c at wound center. Subjective s/p vac, remains on IV abx, tolerating well. afebrile. wound culture growing MRSA. and alpha strep (no sensitivities) wbc decreased to 6, creat 1.3. Results & Data Vital Signs (Past 12 Hours) Vital Signs Temp Pulse Resp BP Pulse Ox 03/17/19 07:13 36.9 C 72 19 98/59 L 94 Laboratory Results Microbiology 03/15/19 17:30 Foot,Left Gram Stain - Final 03/15/19 17:30 Foot,Left Wound Culture - Final Staph aureus MRSA Alpha strep. not enterococcus PG Care Time/CCT Total # of Minutes Spent Total Time Spent with Patient: Total time spent is greater than 50% in coordination of care (as documented) at patient's floor/unit and/or counseling patient:
--- NOTE | 2019-03-17 15:09 | Hospitalist Progress Note ---
Date of Service March 17, 2019 Assessment & Plan (1) EKG abnormalities: Persistent TWI that are more dramatic compared to prior EKG earlier this year and now in V1-V6. Likely related to severe pulmonary disease without chest pain, shortness of breath worsening exercise intolerance or other concerning symptoms. He underwent a right and left heart catheterization April 2017 at [facility]. This revealed evidence of severe pulmonary hypertension and normal coronary arteries. He has been following with [facility] cardiology for the last 2 years and has been compensated from a heart failure standpoint and doing well overall. Will evaluate with serial troponins overnigh t and repeat echo in am. Initial troponin is negative. (2) Cellulitis of plantar aspect of foot: Neuropathic ulcer on the plantar aspect of the left foot, which was unroofed and debrided at the wound care center on 03/15. Left foot was warm and erythematous with purulent drainage and a foul odor. Wound culture was obtained. The patient was directly admitted for IV antibiotics and a wound vac. Continues to do well clinically. Continue daily wound care. Rocephin and Vanc were replace with oral doxycycline. (3) Neuropathic ulcer of left foot: Ambulate with supportive boot. Clarify ambulation instructions per Wound Care in am. (4) Chronic respiratory failure with hypoxia: 2/2 pulmonary HTN. Chronic, stable. -3L NC O2 when active, 2L NC O2 HS (5) Right heart failure: Chronic, stable. No new symptoms. -Continue home dose Lasix, spironolactone (6) Pulmonary HTN: 2/2 ERICA -Continue Adcirca, Letairis (7) ERICA (obstructive sleep apnea): CPAP HS with 2L NC O2 (8) CKD (chronic kidney disease), stage III: Kidney function at baseline -Monitor with daily BMP (9) Asthma, moderate persistent: Stable. Continue Advair, albuterol PRN (10) DVT prophylaxis: Lovenox Full Dispo-to home in am after cardiology evaluation in setting of EKG changes. Cindy Marshall DO [facility] Hospitalist Subjective 54-year-old man status post left plantar neuropathic ulcer debridement with evidence of infection. Wound culture has resulted growing MRSA with other microbes. Per ID, okay to switch him to doxycycline for 30 days initially with reevaluation. The patient is completely asymptomatic. We discussed his EKG abnormalities and he again reports no issues with chest pain, shortness of breath, exercise intolerance, or any worsening of his chronic right heart failure. He continues to use his chronic supplemental oxygen during the day with ambulation only and BiPAP therapy at night. As EKG abnormalities may be indicative of some silent cardiac pathology, we decided together to evaluate this closer overnight with serial troponins and follow with an echo in the morning and a cardiology evaluation. Review of Systems Review of Systems: All systems reviewed & are unremarkable except as noted in HPI & below Physical Exam Physical Exam: CONSTITUTIONAL: WNWD, vitals as above, generally well- appearing EYES: normal conjunctivae, no scleral icterus ENT: MMM RESPIRATORY: clear to auscultation bilaterally, no crackles, rales or wheezes, normal respiratory effort CARDIOVASCULAR: regular rate and rhythm, S1 and 2 heard without murmurs, gallops or rubs, no JVD, no peripheral edema GASTROINTESTINAL: soft, nontender, nondistended MUSCULOSKELETAL: strength 5/5 throughout, head is normocephalic and atraumatic SKIN: warm and dry, wound was wrapped with a gauze that was c/d/i. NEUROLOGIC: CN 2-12 grossly intact, normal cognition, no gross focal deficits. Results & Data Vital Signs (Past 12 Hours) Vital Signs Temp Pulse Resp BP Pulse Ox 03/17/19 07:13 36.9 C 72 19 98/59 L 94 Laboratory Results Short CBC 03/17/19 Range/Units 07:14 WBC 6.77 (4.8-10.8) K/uL Hgb 12.4 L (14.0-18.0) g/dL Hct 36.0 L (42-52) % Plt Count 111 L (130-400) K/uL BMP 03/17/19 07:14 Sodium 135 L Potassium 3.5 Chloride 104 Carbon Dioxide 25 BUN 16 Creatinine 1.38 Glucose 96 Calcium 8.4 L Medications Administered Current Inpatient Medications Acetaminophen (Tylenol) 650 mg PO Q4H PRN PRN Reason: pain/fever Stop: 04/14/19 15:30 Last Admin: 03/15/19 23:34 Dose: 650 mg Documented by: Allopurinol (Zyloprim) 300 mg PO HS DIAMANTE Stop: 04/14/19 20:59 Last Admin: 03/16/19 21:13 Dose: 300 mg Documented by: Ambrisentan (Letairis) 1 ea PO HS DIAMANTE Stop: 04/15/19 20:59 Last Admin: 03/16/19 21:14 Dose: 1 ea Documented by: Aspirin (Ecotrin Ectab) 81 mg PO DAILY DIAMANTE Stop: 04/15/19 08:59 Last Admin: 03/17/19 08:01 Dose: 81 mg Documented by: Doxycycline Hyclate (Vibramycin) 100 mg PO BID DIAMANTE Stop: 03/27/19 17:59 Enoxaparin Sodium (Lovenox) 40 mg SQ Q24H DIAMANTE Stop: 04/14/19 20:59 Last Admin: 03/16/19 21:15 Dose: 40 mg Documented by: Furosemide (Lasix) 80 mg PO BID17 DIAMANTE Stop: 04/14/19 17:44 Last Admin: 03/17/19 08:01 Dose: 80 mg Documented by: Miscellaneous (Order Awaiting Action) 1 ea N/A QS [facility] Stop: 04/14/19 18:39 Last Admin: 03/17/19 07:58 Dose: Not Given Documented by: Miscellaneous (Order Awaiting Action) 1 ea N/A QS DIAMANTE Stop: 04/14/19 18:39 Last Admin: 03/17/19 07:58 Dose: Not Given Documented by: Montelukast Sodium (Singulair) 10 mg PO PM DIAMANTE Stop: 04/14/19 20:59 Last Admin: 03/16/19 21:13 Dose: 10 mg Documented by: Tadalafil (Adcirca) (20 Mg Tab) 2 ea PO HS [facility] Stop: 04/15/19 20:59 Last Admin: 03/16/19 21:13 Dose: 2 tabs Documented by: Ondansetron HCl (Zofran) 4 mg IV Q6H PRN PRN Reason: Nausea Stop: 04/14/19 15:30 Polyethylene Glycol (Miralax Powder Packet) 17 gm PO DAILY PRN PRN Reason: Constipation Stop: 04/14/19 15:30 Potassium Chloride (Klor-Con M20) 20 meq PO DAILY DIAMANTE Stop: 04/15/19 08:59 Last Admin: 03/17/19 08:01 Dose: 20 meq Documented by: Fluticasone/Salmeterol (Advair Diskus 500/50) 1 puffs INH BID DIAMANTE Stop: 04/14/19 20:59 Last Admin: 03/17/19 08:00 Dose: 1 puffs Documented by: Spironolactone (Aldactone) 25 mg PO BID17 [facility] Stop: 04/14/19 17:44 Last Admin: 03/17/19 08:01 Dose: 25 mg Documented by: Triamcinolone Acetonide (Kenalog 0.1%) 1 appln TOP DAILY DIAMANTE Stop: 04/15/19 08:59 Last Admin: 03/17/19 08:01 Dose: Not Given Documented by:
[2019-03-17] MEDS: DOXYCYCLINE HYCLATE 100 MG CAP PO SCH (18:03)
[2019-03-17] MEDS: TADALAFIL 20 MG PO SCH (20:32)
[2019-03-17] MEDS: ALLOPURINOL 300 MG TAB PO SCH (20:33)
[2019-03-17] MEDS: MONTELUKAST SODIUM 10 MG TABLET PO SCH (20:33)
[2019-03-17] MEDS: ENOXAPARIN INJ 40 MG/0.4 ML SYR SQ SCH (20:34)
[2019-03-17] MEDS: AMBRISENTAN 10 MG TAB PO SCH (20:34)
[2019-03-18 06:43] LABS: Hematocrit (blood only) 34.7 % (42-52); Hemoglobin 11.9 g/dL (14.0-18.0); Mean Corpuscular Hemoglobin 31.3 pg (25-34); Mean Corpuscular Hgb Conc 34.3 g/dL (32-36); Mean Corpuscular Volume 91.3 fL (80-100); Mean Platelet Volume 10.3 fL (7.4-10.4); Platelet Count 128 K/uL (130-400); RDW Coefficient of Variation 14.1 % (11.5-14.5); RDW Standard Deviation 46.9 fL (36.4-46.3); White Blood Count 5.01 K/uL (4.8-10.8)
[2019-03-18 07:17] LABS: BUN Creatinine Ratio 14.6 (10-20); Calcium 8.4 mg/dl (8.5-10.1); Est GFR (African American) 79.8; Est GFR (Non-African American) 68.8; Potassium 3.4 mmol/L (3.5-5.1)
[2019-03-18] MEDS: FLUTICASONE/SALMETEROL (ADVAIR) 500/50 INH 14 PUFF INH SCH (08:48)
[2019-03-18] MEDS: FUROSEMIDE 40 MG TAB PO SCH (08:49)
[2019-03-18] MEDS: SPIRONOLACTONE 25 MG TAB PO SCH (08:49)
[2019-03-18] MEDS: DOXYCYCLINE HYCLATE 100 MG CAP PO SCH (08:49)
[2019-03-18] MEDS: ASPIRIN 81 MG ECTAB PO SCH (08:49)
[2019-03-18] MEDS: TRIAMCINOLONE ACET 0.1% CR 15 GM TUBE TOP SCH (08:50)
[2019-03-18] MEDS: POTASSIUM CHLORIDE 20 MEQ TABCR PO SCH (08:50)
--- NOTE | 2019-03-18 09:35 | Cardiology Consultation ---
Date of Consultation March 18, 2019 Assessment & Plan (1) EKG abnormalities: EKG is reviewed and reflect similar findings the past tracings consistent with pulmonary disease, right bundle branch block No acute changes or evolution Echocardiogram recently performed demonstrates preserved LV systolic function with right heart dilatation No evidence of ischemic heart disease in the past with normal coronary angiography (2) Pulmonary HTN: Would continue prehospitalization medications including diuretics and tadalafil, CPAP/BiPAP at night (3) Cor pulmonale, chronic: History of Present Illness Reason for Consultation: Evaluate EKGs Requesting Physician: Dr. Marshall Attending Physician: Cindy Marshall, DO History of Present Illness Patient is a 54-year-old male underlying history of severe pulmonary hypertension multifactorial etiology including severe obstructive sleep apnea pickwickian syndrome with morbid obesity on appropriate medical therapies significant weight loss over the last years time. Well compensated right heart failure. Patient presents with ongoing nonhealing ulceration and infection of left foot with cellulitis Patient is referred for consultation after review of EKGs done during this admission Patient denies any cardiac complaints. Chest pains tachypalpitations syncope or near syncope. Other than foot infection has been doing well with good compensation of volume status and edema Has been taking medications as prescribed Allergies Allergy/AdvReac Type Severity Reaction Status Date / Time No Known Allergies Allergy Unverified 03/15/19 13:33 Home Medications Home Medications Medication Instructions Recorded Confirmed Type Oxygen Home #1 ea 03/15/19 03/15/19 History albuterol sulfate 2 puff INHALATION QID PRN 03/15/19 03/15/19 History allopurinol 300 mg PO HS 03/15/19 03/15/19 History ambrisentan [Letairis] 10 mg PO HS 03/15/19 03/15/19 History aspirin 81 mg tablet,delayed 81 mg PO DAILY 03/15/19 03/15/19 History release fluticasone 500 mcg-salmeterol 50 1 puffs INH BID 03/15/19 03/15/19 History mcg/dose blistr powdr for inhalation furosemide 80 mg PO BID 03/15/19 03/15/19 History montelukast [Singulair] 10 mg PO PM 03/15/19 03/15/19 History potassium chloride ER 20 mEq 20 meq PO DAILY 03/15/19 03/15/19 History tablet,extended release spironolactone 25 mg tablet 25 mg PO BID tab 03/15/19 03/15/19 History tadalafil 40 mg PO HS 03/15/19 03/15/19 History triamcinolone acetonide 1 applic TOPICAL DAILY 03/15/19 03/15/19 History doxycycline hyclate 100 mg PO BID #60 cap 03/17/19 Rx Patient History Medical History CKD (chronic kidney disease), stage III (Chronic) Right heart failure (Chronic) ERICA (obstructive sleep apnea) (Chronic) HTN (hypertension) (Chronic) Pulmonary HTN (Chronic) Cor pulmonale, chronic (Chronic) Asthma, moderate persistent (Chronic) Chronic respiratory failure with hypoxia (Chronic) Dyslipidemia (Chronic) Psoriasis (Chronic) Cellulitis of plantar aspect of foot (Acute) Neuropathic ulcer of toe of right foot (Acute) Ulcer of left heel and midfoot (Acute) Acquired claw toe of left foot (Chronic) Acquired claw toe of right foot (Chronic) Neuropathy (Chronic) Obstructive sleep apnea (Chronic) Pulmonary hypertension (Chronic) Surgical History History of amputation of lesser toe of left foot (Resolved) Family History Other Dementia Diabetes Social History Preferred Language: Urdu Communication Ability: Effective Visual Impairment: No Limitations Hearing Ability: Normal Bank Clerk Required: No Beliefs That Will Affect Care: None marital status: Life Partner Current Living Situation: Other Current Living Situation Comment: Three adults current occupational status: disabled Other Information That Helps Us Care for You: No Feels Safe at Home: Yes Safety Concerns: Feels Safe At This Time Smoking Status: Never smoker Do You Dip or Chew Tobacco: No ; Second Hand Exposure: Yes ; Tobacco Cessation Education Requested by Patient: No Hx Alcohol Use: No Hx Substance Use: No Childhood Exposure to Second-Hand Smoke: Yes Physical Exam Constitutional: WD/WN, vitals as above Eyes: PERRL, conjunctivae normal, anicteric sclerae ENMT: external ear and nose normal, oropharynx normal Neck: trachea midline, no thyromegaly Respiratory: normal respiratory effort; no respiratory distress Auscultation: lungs clear to auscultation bilaterally and + diminished lung sounds Cardiovascular: Rate/Rhythm: regular rate and regular rhythm Heart Sounds: normal S1 and normal S2; no gallop and no murmur Palpation: normal PMI Vessels: normal carotid upstroke and radial pulses present; no JVD and no carotid bruit Extremities: no edema Gastrointestinal (Abdomen): normal bowel sounds, soft, nontender, no hepatosplenomegaly Musculoskeletal: Left foot bandaged visible eschar on lateral foot. No edema right leg Skin: no rashes, warm and dry Neurologic: PERRL, EOMI, accommodation nl, no face palsy, no dysarthria Psychiatric: A+Ox3, euthymic affect Results & Data Vital Signs (Past 12 Hours) Vital Signs Temp Pulse Pulse Resp BP BP Pulse Ox 03/18/19 07:38 60 03/18/19 06:38 36.8 C 61 18 94/55 L 93 03/18/19 04:00 36.8 C 63 21 100/61 97 03/18/19 01:20 68 16 98 03/18/19 00:11 75 03/17/19 23:17 72 18 97 03/17/19 22:49 37 C 75 20 105/63 91 03/17/19 22:44 73 Laboratory Results Laboratory Results - last 24 hr 03/17/19 03/18/19 03/18/19 18:54 00:38 06:13 WBC 5.01 RBC 3.80 L Hgb 11.9 L Hct 34.7 L MCV 91.3 MCH 31.3 MCHC 34.3 RDW Std Deviation 46.9 H RDW Coeff of Marleni 14.1 Plt Count 128 L MPV 10.3 Sodium Potassium Chloride Carbon Dioxide Anion Gap BUN Creatinine Est Cr Clr Drug Dosing Est GFR ( Amer) Est GFR (Non-Af Amer) BUN/Creatinine Ratio Glucose Calcium Troponin I < 0.015 0.018 03/18/19 06:13 WBC RBC Hgb Hct MCV MCH MCHC RDW Std Deviation RDW Coeff of Marleni Plt Count MPV Sodium 138 Potassium 3.4 L Chloride 106 Carbon Dioxide 25 Anion Gap 7.0 BUN 17 Creatinine 1.19 Est Cr Clr Drug Dosing 95.0 Est GFR ( Amer) 79.8 Est GFR (Non-Af Amer) 68.8 BUN/Creatinine Ratio 14.6 Glucose 89 Calcium 8.4 L Troponin I Diagnostic Findings Echocardiogram 11/09/2018 The qualitative LV ejection fraction is 55-59% (normal). The septal motion is abnormal consistent with right ventricular pressure and volume overload. The right ventricular cavity is severely dilated. The right ventricular systolic function is severely reduced . The right atrium is moderately enlarged. Mild tricuspid regurgitation is present. Dilated IVC with normal inspiratory collapse suggesting a right atrial pressure of 8 mmHg. The estimated pulmonary artery systolic pressure is 76mm Hg. The aortic root is mildly enlarged. ECG Additional Comments: 18-MAR-2019 08:06:10 [facility]-CCU ROUTINE RETRIEVAL Normal sinus rhythm Possible Left atrial enlargement Left axis deviation Right bundle branch block Inferior infarct , age undetermined T wave abnormality, consider lateral ischemia Abnormal ECG When compared with ECG of 17-MAR-2019 11:17, (unconfirmed) Criteria for Anteroseptal infarct are no longer Present No significant change was found
--- NOTE | 2019-03-18 13:03 | Discharge Summary ---
Date of Service March 18, 2019 Admission HPI Per Admitting Provider This is a 54yo M with a PMH of pulmonary HTN, right sided heart failure, CKD III, ERICA on CPAP (with 2L O2 HS), asthma and peripheral neuropathy who presents as a direct admission from wound care clinic with left plantar cellulitis. Patient recently established at wound care clinic and today was first visit. Noticed wound on bottom of left foot 2 months ago but it was calloused. Recently noted swelling and warmth of left foot. Has peripheral neuropathy with reduced feeling of plantar aspects of bilateral feet. Has noted some drainage from wound since debridement in clinic today by Dr. Lindsay. Was sent for IV antibiotics and wound vac placement. Wound care to follow along inpatient. Has history of left lesser toe amputation. No known h/o MRSA. Denies fever, chills, headache, lightheadedness, visual changes, chest pain, palpitations, shortness of breath, abdominal pain, nausea, vomiting, dysuria, constipation or diarrhea. Principal Diagnosis Left foot cellulitis 2/2 MRSA Neuropathic ulcer chronic pulmonary disease Discharge Data Allergies Allergy/AdvReac Type Severity Reaction Status Date / Time No Known Allergies Allergy Unverified 03/15/19 13:33 Consultations 03/15/19 15:31 Consult Wound Care Provider Routine 03/15/19 17:03 Consult Infectious Diseases Routine 03/17/19 20:30 Consult Cardiology Routine Hospital Course (1) Cellulitis of plantar aspect of foot: (2) Neuropathic ulcer of left foot: (3) EKG abnormalities: (4) Chronic respiratory failure with hypoxia: (5) Right heart failure: (6) Pulmonary HTN: (7) ERICA (obstructive sleep apnea): 54-year-old man admitted from the wound care center secondary to increased warmth, redness and purulent drainage (cellulitis of plantar aspect of foot) overlying a neuropathic ulcer after debridement surgery in the wound clinic on 03/15. He was admitted and placed on IV vancomycin and Rocephin. Infectious disease was consulted and based on culture results revealing MRSA and changed his antibiotics to doxycycline 100 mg p.o. twice daily. A wound VAC was placed by the wound providers and the patient was ambulating in his cam boot, which he had already been supplied. He will plan to follow at the wound center post discharge in the hospital and can further adjust antibiotic duration based on clinical improvement of his wound. Of note he has a history of chronic right heart failure and cor pulmonale on chronic oxygen supplementation. An EKG had been performed at the wound center and on admission that appeared different from prior EKGs in September of last year. Specifically, there were increased T wave inversions in all lateral leads as opposed to V1 and the prior EKG study. The patient had no cardiac symptoms but was kept overnight with serial troponins negative and no evidence of concerning arrhythmia on telemetry. The following day an echocardiogram was performed revealing a severely dilated right ventricle, severely reduced right ventricular systolic function, moderate tricuspid regurgitation, a small right to left intra-atrial shunt, normal left ventricular systolic function with an ejection fraction 60 to 65%, a small mobile fibrillary echodensity adherent to the tip of the noncoronary aortic valve cusp with differential diagnosis including but not limited to lambal's excrescence, tumor, thrombus and or vegetation. Cardiology was consulted and felt the EKG reflected similar findings of the past tracings consistent with pulmonary disease including a right bundle branch block. No acute changes or evolution was seen. At time of discharge patient was hemodynamically stable and afebrile. He was tolerating p.o. and mentating at baseline. He was ambulating well with his cam boot and was sent home in stable condition with close primary care follow-up recommended. Physical exam was significant for a wound VAC on the left foot. Cardiac exam was normal with no evidence of edema, JVD or other evidence of volume overload. He is in no respiratory distress and had no conversational dyspnea with clear lungs to auscultation bilaterally. Total Time Total Time Spent Total Time Spent (In Minutes): 60 Discharge Plan Discharge Items Patient Disposition: Home - Home Health Services Reason For Visit: LEFT FOOT CELLULITIS Discharge Diagnosis: Left foot cellulitis 2/2 MRSA Neuropathic ulcer chronic pulmonary disease Condition: Good Discharge Goals: Decrease discomfort and Improve disease control Activity: Resume your previous activity Bathing Comment: keep wound vac dry Weightbearing Comment: minimal walking , wear CAM boot when walking Non-emergency contact: Primary Care Provider Call non-emergency contact if: you have any medication questions, your symptoms worsen, your pain is not controlled, your pain is worsening, your pain is unusual for you, your pain is concerning for you and you have a fever Follow-up/Referrals: Robina Caba DO [Physician] - Aashish,Bill V., DO [Primary Care Provider] - Kvng Lindsay DO [Physician] - Diet: Low Sodium (2gm) Addtl Provider Instructions: Please take all medications as instructed on discharge list below. You are being sent home on long-term DOXYCYCLINE, which is an antibiotic to treat your foot infection. You are leaving with 30 days of medications to start and will need to follow-up with the [facility] in 3 weeks to ensure healing is appropriate. At that time, they will consider if further antibiotics are needed. While on this medication, you will need some bloodwork done to monitor your blood counts. This can be ordered by your primary care physician at time of follow-up. Please continue using the boot you have, and follow any other post-operative instructions given to you by Dr. Lindsay from Wound Care, including any activity restrictions. It is recommended that you follow-up with your primary care physician within one week of discharge. Someone from our staff will be in touch with you tomorrow to get that setup when the lines open again. It was a pleasure taking care of you! Please call if you have any questions or problems. You can reach a [facility] hospitalist on duty at [facility] 24 hours a day by calling [phone]. Take care of yourself. Cindy Marshall, [facility] Hospitalist Prescriptions: New doxycycline hyclate 100 mg Capsule 100 mg PO BID Qty: 60 RF: 0 Continued aspirin [Adult Aspirin Regimen] 81 mg tablet,delayed release (DR/EC) 81 mg PO DAILY RF: 0 fluticasone propion-salmeterol 500-50 mcg/dose blister with device 1 puffs INH BID RF: 0 Oxygen Home Liters Per Minute .ROUTE .MEDSUPPLY Qty: 1 RF: 0 potassium chloride 20 mEq tablet extended release 20 meq PO DAILY RF: 0 spironolactone 25 mg tablet 25 mg PO BID RF: 0 furosemide 40 mg Tablet 80 mg PO BID RF: 0 triamcinolone acetonide 0.1 % Cream 1 applic TOPICAL DAILY RF: 0 montelukast [Singulair] 10 mg Tablet 10 mg PO PM RF: 0 allopurinol 300 mg Tablet 300 mg PO HS RF: 0 tadalafil 20 mg Tablet 40 mg PO HS RF: 0 ambrisentan [Letairis] 10 mg Tablet 10 mg PO HS RF: 0 albuterol sulfate 90 mcg/actuation Hfa Aerosol Inhaler 2 puff INHALATION QID PRN (Reason: Shortness Of Breath Or Wheezing) RF: 0 Stand-Alone Forms: [facility] Discharge Orders: Discharge Order (Routine); Ordered 03/18/19 Ordered By: Cindy Marshall Admission Data Admit Date/Time: 03/15/19 15:31 Attending Provider: Cindy Marshall Admit Provider: Jerardo Low Primary Care Provider: Bill Zendejas V. Other Providers: Kvng Lindsay ; Robina Caba ; Loy Cardona Service: Telemetry Medical Other Interventions: Discharge Summary Assessment (RN) Last Done: 03/18/19 13:15 DC Date/Time DO NOT enter until pt leaves facility: 03/18/19 13:10
--- NOTE | 2019-03-18 15:45 | Wound Consultation ---
Date of Consultation March 18, 2019 Assessment & Plan (1) Cellulitis of plantar aspect of foot: Continue antibiotics. Irrigating wound VAC was removed. Patient will be placed on a regular wound VAC to be changed 3 times a week. We will start with silver foam. Patient will be seen in the wound clinic for follow-up upon discharge. Thank you for allowing me to participate in the care of this patient. Please not hesitate to call with any questions. (2) Neuropathic ulcer of left foot: History of Present Illness Attending Physician: Cindy Marshall DO This is a 54-year-old male who was direct admitted from the wound clinic with cellulitis and neuropathic foot ulcer. Patient was started on IV antibiotics and placed on the irrigating wound VAC. Allergies Allergy/AdvReac Type Severity Reaction Status Date / Time No Known Allergies Allergy Unverified 03/15/19 13:33 Home Medications Home Medications Medication Instructions Recorded Confirmed Type Oxygen Home #1 ea 03/15/19 03/15/19 History albuterol sulfate 2 puff INHALATION QID PRN 03/15/19 03/15/19 History allopurinol 300 mg PO HS 03/15/19 03/15/19 History ambrisentan [Letairis] 10 mg PO HS 03/15/19 03/15/19 History aspirin 81 mg tablet,delayed 81 mg PO DAILY 03/15/19 03/15/19 History release fluticasone 500 mcg-salmeterol 50 1 puffs INH BID 03/15/19 03/15/19 History mcg/dose blistr powdr for inhalation furosemide 80 mg PO BID 03/15/19 03/15/19 History montelukast [Singulair] 10 mg PO PM 03/15/19 03/15/19 History potassium chloride ER 20 mEq 20 meq PO DAILY 03/15/19 03/15/19 History tablet,extended release spironolactone 25 mg tablet 25 mg PO BID tab 03/15/19 03/15/19 History tadalafil 40 mg PO HS 03/15/19 03/15/19 History triamcinolone acetonide 1 applic TOPICAL DAILY 03/15/19 03/15/19 History doxycycline hyclate 100 mg PO BID #60 cap 03/17/19 Rx Patient History Medical History CKD (chronic kidney disease), stage III (Chronic) Right heart failure (Chronic) ERICA (obstructive sleep apnea) (Chronic) HTN (hypertension) (Chronic) Pulmonary HTN (Chronic) Cor pulmonale, chronic (Chronic) Asthma, moderate persistent (Chronic) Chronic respiratory failure with hypoxia (Chronic) Dyslipidemia (Chronic) Psoriasis (Chronic) Cellulitis of plantar aspect of foot (Acute) Neuropathic ulcer of toe of right foot (Acute) Ulcer of left heel and midfoot (Acute) Acquired claw toe of left foot (Chronic) Acquired claw toe of right foot (Chronic) Neuropathy (Chronic) Obstructive sleep apnea (Chronic) Pulmonary hypertension (Chronic) Surgical History History of amputation of lesser toe of left foot (Resolved) Family History Other Dementia Diabetes Social History Preferred Language: Romansh Communication Ability: Effective Visual Impairment: No Limitations Hearing Ability: Normal Marketing Communications Coordinator Required: No Beliefs That Will Affect Care: None marital status: Life Partner Current Living Situation: Other Current Living Situation Comment: Three adults current occupational status: disabled Feels Safe at Home: Yes Smoking Status: Never smoker Second Hand Exposure: Yes ; Hx Alcohol Use: No Hx Substance Use: No Childhood Exposure to Second-Hand Smoke: Yes Review of Systems Review of Systems: All systems reviewed & are unremarkable except as noted in HPI & below Physical Exam Skin: Wound measuring 2.2 x 2.6 x 0.2 cm. Wound is covered with granulation tissue and slough. Periwound covered with callus and mildly macerated. There is moderate drainage and foul odors. Neurologic: awake; not confused Psychiatric: A+Ox3, euthymic affect Results & Data Vital Signs (Past 12 Hours) Vital Signs Temp Pulse Pulse Pulse Resp BP BP 03/18/19 13:15 36.3 C L 87 69 18 94/55 L 100/59 L 03/18/19 11:56 36.3 C L 69 18 100/59 L 03/18/19 07:38 60 03/18/19 06:38 36.8 C 61 18 94/55 L 03/18/19 04:00 36.8 C 63 21 100/61 Pulse Ox 08/30/19 13:15 92 03/18/19 11:56 92 03/18/19 07:38 03/18/19 06:38 93 03/18/19 04:00 97 PG Care Time/CCT Total # of Minutes Spent Total Time Spent with Patient: Total time spent is greater than 50% in coordination of care (as documented) at patient's floor/unit and/or counseling patient:
[2019-03-19] MEDS ORDERED: VANCOMYCIN TROUGH ONE (07:30)
== END 2019-03-18 13:10 | disposition home health service (06) | DRG 603 ==
LOC: SUATTDRO 15:31 → 3W 15:31 → 2N 03-17 20:43